=== PATIENT | male | born 1960 | race Caucasian/White ===

== ENCOUNTER 2022-11-07 10:26 | Outpatient (REF) | payer OTHER, SELFPAY ==
[2022-11-07 13:36] LABS: MANUAL DIFF FLAG NO
[2022-11-07 13:41] LABS: Basophils Percent Auto 0.5 % (0-2); Eosinophils Absolute Auto 0.3 X10*3/uL (0.0-0.4); Eosinophils Percent Auto 3.6 % (0-4); Hematocrit 50.4 % (42.0-52.0); Hemoglobin 17.1 g/dl (14.0-18.0); Imm Gran Abs Auto 0.03 X10*3/uL (0.00-0.03); Imm Gran Pct Auto 0.4 % (0.0-0.4); Lymphocytes Absolute Auto 1.8 X10*3/uL (1.2-4.9); Lymphocytes Percent Auto 21.7 % (20-40); Mean Corpuscular HGB Conc 33.9 g/dl (31.0-36.0); Mean Corpuscular Hemoglobin 31.4 pg (27.0-33.0); Mean Corpuscular Volume 92.5 fL (80.0-98.0); Mean Platelet Volume 9.3 fL (9.4-12.4); Monocytes Absolute Auto 0.7 X10*3/uL (0.1-1.2); Monocytes Percent Auto 8.3 % (2-11); Neutrophils Absolute Auto 5.3 x10*3/uL (2.0-8.3); Neutrophils Percent Auto 65.5 % (45-73); Platelet Count 195 X10*3/uL (160-400); Red Blood Count 5.45 X10*6/uL (4.60-5.80); Red Cell Distribution Width 13.3 % (11.0-16.0); White Blood Count 8.1 X10*3/uL (4.8-10.8)
[2022-11-07 13:50] LABS: Estimated Average Glucose 114 mg/dL; Hemoglobin A1c % 5.6 %
[2022-11-07 14:09] LABS: Alanine Aminotransferase 41 U/L (0-40); Albumin Level 4.3 g/dL (3.5-5.0); Alkaline Phosphatase 89 U/L (39-117); Anion Gap 17 (12-20); Aspartate Amino Transferase 30 U/L (5-37); Bilirubin Total 1.1 mg/dL (0.0-1.0); Blood Urea Nitrogen 12 mg/dL (9-16); Calcium 9.7 mg/dL (8.4-10.2); Carbon Dioxide 25 mmol/L (22-29); Chloride 106 mmol/L (96-108); Cholesterol 200 mg/dL; Estimated Glomerular Filt Rate > 60; Glucose Fasting 93 mg/dL (60-99); HDL Cholesterol 39 mg/dL; LDL Cholesterol Calculated 96 mg/dl; Potassium 4.3 mmol/L (3.3-5.1); Sodium 144 mmol/L (135-145); Total Protein 6.9 g/dL (6.5-8.0); Triglycerides 329 mg/dL
[2022-11-07 14:15] LABS: Prostate Specific Antigen Scr 2.98 ng/mL (<0.05-4.0); Thyroid Stimulating Hormone 1.25 uIU/mL (0.32-4.0)
== END 2022-11-07 10:27 | disposition home or self-care (01) ==
LOC: HO.10HDL 10:26
PROVIDERS: Visit Provider Internal Medicine
DX: Z00.01 Encounter for general adult medical examination with abnormal findings (principal); Z12.5 Encounter for screening for malignant neoplasm of prostate; E66.01 Morbid (severe) obesity due to excess calories; G47.33 Obstructive sleep apnea (adult) (pediatric); G62.9 Polyneuropathy, unspecified; I10 Essential (primary) hypertension
CPT/HCPCS: 36415; 80053; 80061; 83036; 84153; 84443; 85025

== ENCOUNTER 2023-02-28 10:57 | Outpatient (REF) | payer OTHER, SELFPAY ==
[2023-02-28 13:01] LABS: Alanine Aminotransferase 35 U/L (0-40); Albumin Level 4.4 g/dL (3.5-5.0); Alkaline Phosphatase 86 U/L (39-117); Anion Gap 14 (12-20); Aspartate Amino Transferase 27 U/L (5-37); Bilirubin Total 1.2 mg/dL (0.0-1.0); Blood Urea Nitrogen 20 mg/dL (9-16); Calcium 9.9 mg/dL (8.4-10.2); Carbon Dioxide 25 mmol/L (22-29); Chloride 108 mmol/L (96-108); Cholesterol 181 mg/dL; Estimated Glomerular Filt Rate > 60; Glucose Random 102 mg/dL (60-115); HDL Cholesterol 33 mg/dL; LDL Cholesterol Calculated 78 mg/dl; Potassium 4.5 mmol/L (3.3-5.1); Sodium 142 mmol/L (135-145); Total Protein 7.2 g/dL (6.5-8.0); Triglycerides 352 mg/dL
== END 2023-02-28 10:58 | disposition home or self-care (01) ==
LOC: HO.LAB 10:57
PROVIDERS: PCP Internal Medicine; Visit Provider Internal Medicine
DX: E66.01 Morbid (severe) obesity due to excess calories (principal); E78.2 Mixed hyperlipidemia; G47.33 Obstructive sleep apnea (adult) (pediatric); I10 Essential (primary) hypertension
CPT/HCPCS: 36415; 80053; 80061

== ENCOUNTER 2023-10-23 08:10 | Emergency (ER) | payer OTHER, MEDICARE, SELFPAY ==
--- NOTE | ~2023-10-23 | CT_ITS ---
EXAMINATION: CT ABDOMEN AND PELVIS WITHOUT CONTRAST CLINICAL INFORMATION: Left flank pain. COMPARISON: None available. TECHNIQUE: Multidetector volumetric imaging was performed from the superior aspect of the liver through the pubic symphysis. Sagittal and coronal reformatted images were obtained on the technologist's workstation. This CT examination was performed using dose optimization techniques as appropriate, variously including the following: *Automated exposure control *Adjustment of mA and/or kV according to patient size (this includes techniques or standardized protocols for targeted exams where dose is matched to indication/reason for exam; i.e. extremities or head) *Use of iterative reconstruction technique DLP: 764 mGy-cm FINDINGS: LUNG BASES: No pleural or pericardial effusion. LIVER, GALLBLADDER, AND BILIARY TREE: The noncontrast liver is normal in size and contour. No biliary ductal dilatation is present. The gallbladder is unremarkable with no evidence of radiopaque gallstones, gallbladder wall thickening, or obvious pericholecystic inflammatory changes. PANCREAS: No ductal dilatation. SPLEEN: Not enlarged. ADRENAL GLANDS: No adrenal mass. KIDNEYS AND URETERS: Edematous left kidney with moderate hydroureteronephrosis to the level of 4 mm and 7 mm calculi in the distal left ureter proximal to the ureterovesical junction. There is left perinephric, peripelvic and periureteric stranding. 4 mm nonobstructing calculus upper pole right kidney. Punctate nonobstructing calculus lower pole right kidney. No right hydronephrosis. No right perinephric stranding. BLADDER: Multiple bladder diverticula. GASTROINTESTINAL TRACT: Extensive diverticular disease of the colon. No small bowel obstruction. ABDOMINAL WALL: Small fat-containing umbilical hernia. LYMPH NODES: No bulky lymphadenopathy. VASCULAR: Normal caliber abdominal aorta. PELVIC VISCERA: Enlarged prostate gland. OSSEOUS STRUCTURES: No destructive bone lesions. CT/CT abdomen pelvis wo IV con IMPRESSION: 4 mm and 7 mm obstructing calculi within the distal left ureter proximal to the ureterovesical junction. Moderate left hydroureteronephrosis. Multiple bladder diverticula. Nonobstructing right renal calculi. No right hydronephrosis.
[2023-10-23 08:14] VITALS: BP 180/102; PULSE 54; RESP 18; TEMP 36.8; O2SAT 96; BMI 34.0
--- NOTE | 2023-10-23 08:22 | ED_ITS ---
HPI - Male Genitourinary General Chief complaint: Urogenital-Male Stated complaint: L Side Back Pain Kidney Area Time Seen by Provider: 10/23/23 08:14 Source: patient Mode of arrival: ambulatory Limitations: no limitations History of Present Illness HPI Narrative: 63-year-old male with a history of hypertension , bilateral Charcot foot who presents emergency department for evaluation of left flank and left abdominal pain since 10/18/2023 (5 days prior to evaluation) patient states that the pain started 5 days prior in the afternoon, the pain was gradual in onset but increased in intensity. Describes the pain is a sharp pain which has been intermittent located in his left flank area radiating to his lower abdomen on the left greater than the right.. He states the pain is 7/10 at its worse and is currently 7/10. The patient took ibuprofen with no relief his pain therefore he stopped taking the medication. Patient states he has had no appetite and has had very little food to eat over the last 4 days but he has been drinking fluid. This is 1st episode of this type of pain he has no history of kidney stones Patient denied fever, chills, chest pain or shortness of breath. He states he has had nausea with no vomiting. He denied diarrhea. He denied dysuria. He states that he is having difficulty urinating when he has the pain in his low improves when he is pain-free.. Related Data Previous Rx's Medication Instructions Recorded morphine 15 mg immediate release 15 mg PO Q6H PRN pain #14 tabs 10/23/23 tablet tamsulosin 0.4 mg capsule (Flomax) 0.4 mg PO DAILY #30 caps 10/23/23 Allergies Allergy/AdvReac Type Severity Reaction Status Date / Time Sulfa (Sulfonamide Allergy Unknown Verified 10/26/19 00:00 Antibiotics) sulfamethoxazole Allergy Unknown UNKNOWN Unverified 06/09/20 14:57 [From BACTRIM] trimethoprim [From BACTRIM] Allergy Unknown UNKNOWN Unverified 06/09/20 14:57 Review of Systems 2 Review of Systems: Yes all other systems are reviewed and are negative [facility] Past Medical History [facility] Narrative: Past medical history: Hypertension, bilateral Charcot foot disease. Social history: He denies tobacco, alcohol and drug use Social History Social History Smoked in Last 30 Days: No Use of substances other than those prescribed or required for medical reasons: No Advance Directives: No Advance Directives Information Provided: No Physical Exam 2 Vital Signs: Vital Signs: Last Vital Signs Temp 98.7 F 10/23/23 10:23 Pulse 54 10/23/23 10:23 Resp 16 10/23/23 10:23 BP 147/79 H 10/23/23 10:23 Pulse Ox 96 10/23/23 10:23 O2 Del Method Room Air 10/23/23 10:23 BMI result Body Mass Index 34.0 Vital signs did reveal an elevated blood pressure of 180/102-most likely caused by his pain Exam: General: Awake, alert in no distress Head: Normocephalic, atraumatic EENT: PERRL, Lids normal, sclera normal, conjunctiva normal, nose normal , ears normal, throat without erythema or exudates Neck: Supple, no adenopathy Lung: breath sounds symmetric, no wheezing, rales or rhonchi Chest: symmetric movement, nontender Heart: regular rate and rhythm, normal S1, S2 no murmurs or rubs Abdomen: soft, non-tender, nondistended, normal bowel sounds Back: no vertebral tenderness, no CVAT Extremities: no deformities, moves all extremities symmetrically Skin: no rashes, no lesion, normal color and warmth Neuro: Awake, alert, oriented, normal speech, cranial nerves intact, moves all extremities symmetrically Psych: Pleasant, cooperative Medications Administered Discontinued Medications Generic Name Dose Route Start Last Admin Trade Name Freq PRN Reason Stop Dose Admin Sodium Chloride 1,000 mls @ 999 mls/hr 10/23/23 08:36 10/23/23 09:55 Ns IV 10/23/23 09:36 Infused .Q1H1M STA Infusion Ketorolac Tromethamine 15 mg 10/23/23 08:36 10/23/23 08:45 Ketorolac Tromethamine 15 Mg/Ml Vial IVPUSH 10/23/23 08:37 15 mg ONCE STA Administration Ondansetron HCl 4 mg 10/23/23 08:36 10/23/23 08:45 Ondansetron Hcl 4 Mg/2 Ml Vial IVPUSH 10/23/23 08:37 4 mg ONCE ONE Administration Medical Decision Making Medical Decision Making MDM Narrative: 63-year-old male with a history of hypertension and Charcot foot disease who presents emergency department for evaluation of 5 days of left flank pain with pain radiating to his abdomen with no dysuria or hematuria noted. He also denied fever but did have chills. He also had associated nausea. Vital signs did reveal an elevated blood pressure-she does have hypertension and is having 7/10 pain. Patient had no CVA tenderness or abdominal tenderness. Differential diagnosis: Includes but not limited to renal colic, ureteral colic, ureteral stone, urinary tract infection, anemia, electrolyte abnormalities Following evaluation was ordered: CBC, CMP, PTT, urinalysis, CT scan of the abdomen pelvis without IV contrast Patient was treated with the following: IV insertion, normal saline x1 L, Toradol 15 mg IV and Zofran 4 mg IV 12:42 My interpretation patient's laboratory evaluation is as follows: CBC was normal. BUN and creatinine were normal. Bilirubin elevated 1.4. Urinalysis pending collection Patient is pain-free after the above treatment. Patient's CT scan of the abdomen pelvis did reveal left-sided moderate hydroureteronephrosis with 2 ureteral stones measuring 4 mm and 7 mm. I did discuss the patient's presentation with our covering urologist, Dr. Lopez. He recommended starting Flomax and prednisone 40 mg once a day for 5 days and he will follow-up with the patient Patient was also advised to take Tylenol and for pain not relieved by prednisone and Tylenol he was prescribed morphine. Admission/Observation Consideration of admission/observation: Escalation of care including admission/observation considered Consult Healthcare Provider Management of the patient was discussed with: [employer] (Urologist, Dr. Lopez) Lab Data MDM Lab Attestation statement: I reviewed the patient's lab results. 10/23/23 08:45 10/23/23 08:45 Labs: Lab Results 10/23/23 Range/Units 08:45 WBC 7.6 (4.8-10.8) X10*3/uL RBC 4.76 (4.60-5.80) X10*6/uL Hgb 14.8 (14.0-18.0) g/dl Hct 43.3 (42.0-52.0) % MCV 91.0 (80.0-98.0) fL MCH 31.1 (27.0-33.0) pg MCHC 34.2 (31.0-36.0) g/dl RDW 12.8 (11.0-16.0) % Plt Count 192 (160-400) X10*3/uL MPV 8.8 L (9.4-12.4) fL Immature Gran % (Auto) 0.5 H (0.0-0.4) % Neut % (Auto) 73.6 H (45-73) % Lymph % (Auto) 12.8 L (20-40) % [place] % (Auto) 10.3 (2-11) % Eos % (Auto) 2.4 (0-4) % Baso % (Auto) 0.4 (0-2) % Lymph # (Auto) 1.0 L (1.2-4.9) X10*3/uL [place] # (Auto) 0.8 (0.1-1.2) X10*3/uL Eos # (Auto) 0.2 (0.0-0.4) X10*3/uL Baso # (Auto) 0.0 (0.0-0.2) X10*3/uL Abs Immat Gran (auto) 0.04 H (0.00-0.03) X10*3/uL Absolute Neuts (auto) 5.6 (2.0-8.3) x10*3/uL Absolute Nucleated RBC 0.000 (0.0-0.012) X10*3/uL Nucleated RBC % (auto) 0.0 (0.0-0.2) /100WBC APTT 31.5 (26.0-36.8) SEC Sodium 136 (135-145) mmol/L Potassium 4.0 (3.3-5.1) mmol/L Chloride 101 (96-108) mmol/L Carbon Dioxide 26 (22-29) mmol/L Anion Gap 13 (12-20) BUN 17 H (9-16) mg/dL Creatinine 1.15 (0.5-1.4) mg/dL Estim Creat Clear Calc 83.1 Estimated GFR > 60 Random Glucose 107 (60-115) mg/dL Calcium 9.7 (8.4-10.2) mg/dL Total Bilirubin 1.4 H (0.0-1.0) mg/dL AST 16 (5-37) U/L ALT 12 (0-40) U/L Alkaline Phosphatase 70 (39-117) U/L Total Protein 7.5 (6.5-8.0) g/dL Albumin 4.2 (3.5-5.0) g/dL Radiology Impression Discussion of test interpretation with radiology: I have reviewed the radiologist's reading. Radiologist Impression: EXAMINATION: CT ABDOMEN AND PELVIS WITHOUT CONTRAST CLINICAL INFORMATION: Left flank pain. COMPARISON: None available. FINDINGS: .... KIDNEYS AND URETERS: Edematous left kidney with moderate hydroureteronephrosis to the level of 4 mm and 7 mm calculi in the distal left ureter proximal to the ureterovesical junction. There is left perinephric, peripelvic and periureteric stranding. 4 mm nonobstructing calculus upper pole right kidney. Punctate nonobstructing calculus lower pole right kidney. No right hydronephrosis. No right perinephric stranding. BLADDER: Multiple bladder diverticula. GASTROINTESTINAL TRACT: Extensive diverticular disease of the colon. No small bowel obstruction. ABDOMINAL WALL: Small fat-containing umbilical hernia. PELVIC VISCERA: Enlarged prostate gland. CT abdomen pelvis wo IV con IMPRESSION: 4 mm and 7 mm obstructing calculi within the distal left ureter proximal to the ureterovesical junction. Moderate left hydroureteronephrosis. Multiple bladder diverticula. Nonobstructing right renal calculi. No right hydronephrosis. Dictated By: Evangelista Maurice MD Prescription Management I considered prescription management with: Pain Medication Chronic Conditions Patient?s care impacted by: Hypertension Discharge Plan Discharge Clinical Impression: Ureteral colic, Calculus of distal left ureter Patient Disposition: Home, Self-Care Instructions: How to Strain Your Urine (ED), Ureteral Stones (ED) Additional Instructions: The CT scan showed that you have 2 stones in your left ureter 1 measuring 4 mm and 1 measuring 7 mm. In general, a 7 mm stone can usually the past but sometimes it can get stuck where the ureter attaches to the bladder (UVJ junction). You do have a 4 mm stone in your right kidney which is not giving her problem at this time. You also have small pockets in your bladder called diverticuli which are not causing any problems. I did discuss her presentation with our urologist, Dr. Lopez he is recommending the following: Flomax (tamsulosin) 0.4 mg, once a day until you pass the stone. Prednisone 20 mg pills, 2 pills (40 mg) once a day for 5 days. While you ?are taking prednisone, do not take any NSAIDs (Motrin, Advil, ibuprofen, Aleve, naproxen). Take Tylenol (acetaminophen) 2 pills every 6 hours as needed for pain. For pain not relieved by redness or Tylenol take morphine 15 mg pills, 1 pill every 4 hours as needed for pain. This medication will make you sleepy, do not drive or work while taking this medication. Morphine is a narcotic medication and can be addicting. If you are concerned about addiction you can ask the pharmacist for less pills or do not get this prescription filled. Strain your urine and if you catch a stone bring it to Dr. Lopez. Call Dr. Lopez's office today to arrange a follow-up appointment Follow-up with your doctor in 2 days. Please return to the emergency department if your symptoms get worse or if you develop any symptoms that are concerning to you. CT abdomen pelvis wo IV con IMPRESSION: 4 mm and 7 mm obstructing calculi within the distal left ureter proximal to the ureterovesical junction. Moderate left hydroureteronephrosis. Multiple bladder diverticula. Nonobstructing right renal calculi. No right hydronephrosis. Dictated By: Evangelista Maurice MD Prescriptions: New tamsulosin [Flomax] 0.4 mg capsule 0.4 mg PO DAILY Qty: 30 0RF morphine 15 mg tablet 15 mg PO Q6H PRN (Reason: pain) Qty: 14 0RF Rx Instructions: Patient may request partial fill; Partial Fill upon patient request.
[2023-10-23] MEDS: ondansetron HCL 4 MG/2 ML VIAL IVPUSH (08:45)
[2023-10-23] MEDS: 0.9 % Sodium Chloride 1,000 ML 999 ML IV (08:45)
[2023-10-23] MEDS: Ketorolac Tromethamine 15 MG/ML VIAL IVPUSH (08:45)
[2023-10-23 08:48] LABS: MANUAL DIFF FLAG NO
[2023-10-23 08:50] LABS: Basophils Percent Auto 0.4 % (0-2); Eosinophils Absolute Auto 0.2 X10*3/uL (0.0-0.4); Eosinophils Percent Auto 2.4 % (0-4); Hematocrit 43.3 % (42.0-52.0); Hemoglobin 14.8 g/dl (14.0-18.0); Imm Gran Abs Auto 0.04 X10*3/uL (0.00-0.03); Imm Gran Pct Auto 0.5 % (0.0-0.4); Lymphocytes Percent Auto 12.8 % (20-40); Mean Corpuscular HGB Conc 34.2 g/dl (31.0-36.0); Mean Corpuscular Hemoglobin 31.1 pg (27.0-33.0); Mean Platelet Volume 8.8 fL (9.4-12.4); Monocytes Absolute Auto 0.8 X10*3/uL (0.1-1.2); Monocytes Percent Auto 10.3 % (2-11); Neutrophils Absolute Auto 5.6 x10*3/uL (2.0-8.3); Neutrophils Percent Auto 73.6 % (45-73); Platelet Count 192 X10*3/uL (160-400); Red Blood Count 4.76 X10*6/uL (4.60-5.80); Red Cell Distribution Width 12.8 % (11.0-16.0); White Blood Count 7.6 X10*3/uL (4.8-10.8)
[2023-10-23 09:00] LABS: Partial Thromboplastin Time 31.5 SEC (26.0-36.8)
[2023-10-23 09:03] LABS: Alanine Aminotransferase 12 U/L (0-40); Albumin Level 4.2 g/dL (3.5-5.0); Alkaline Phosphatase 70 U/L (39-117); Anion Gap 13 (12-20); Aspartate Amino Transferase 16 U/L (5-37); Bilirubin Total 1.4 mg/dL (0.0-1.0); Blood Urea Nitrogen 17 mg/dL (9-16); Calcium 9.7 mg/dL (8.4-10.2); Carbon Dioxide 26 mmol/L (22-29); Chloride 101 mmol/L (96-108); Creatinine Clr Calc Pharmacy 83.1; Estimated Glomerular Filt Rate > 60; Glucose Random 107 mg/dL (60-115); Sodium 136 mmol/L (135-145); Total Protein 7.5 g/dL (6.5-8.0)
--- OUTSIDE RECORDS SUMMARY | 2023-10-23 09:09 | XMS_ITS | Continuity of Care Document ---
Author Name Unknown Organization [facility] Address Unknown Care Team Providers Care Drafter Commercial Name Role Phone Anderadán Chaparro DO [facility] Emile gonzalez Encounter [facility] [place] Date(s): 06/21/21 - 07/21/21 [facility] Attending Physician: José Mariscal Admitting Physician: José Mariscal Referring Physician: José Mariscal Allergies, Adverse Reactions, Alerts Substance Reaction Severity Status Bactrim 1 Persistent Mild Active 1small rash Medications aspirin 81 mg oral tablet 1 tablet = 81 mg, By Mouth, Daily, 0 Refills, Maintenance, 07/29/19 10:26:33 EST Start Date: 07/29/19 Status: Ordered atorvastatin 20 mg oral tablet 1 tablet = 20 mg, By Mouth, Daily, 0 Refills, Maintenance, 07/29/19 10:19:30 EST Start Date: 07/29/19 Status: Ordered CoQ10 = 300 mg, By Mouth, Daily, 0 Refills, Maintenance, 07/29/19 10:26:42 EST Start Date: 07/29/19 Status: Ordered Fish Oil By Mouth, 0 Refills, Maintenance, 07/29/19 10:26:57 EST Start Date: 07/29/19 Status: Ordered Multi Vitamin+ 0 Refills, Maintenance, 07/29/19 10:26:18 EST Start Date: 07/29/19 Status: Ordered Social History Social History Type Response Smoking Status Never (less than 100 in lifetime) entered on: 07/29/19 Sex
--- OUTSIDE RECORDS SUMMARY | 2023-10-23 09:09 | XMS_ITS | Continuity of Care Document ---
Author Name Unknown Organization [facility] Address Unknown Care Team Providers Care Major Donor Coordinator Name Role Phone Chato GRADY, Kaylee Denny Primary Care Physician [phone] Encounter [facility] [place] Date(s): 10/02/21 - 11/01/21 [facility] Attending Physician: José Mariscal Admitting Physician: [...]
--- OUTSIDE RECORDS SUMMARY | 2023-10-23 09:09 | XMS_ITS | Continuity of Care Document ---
Author Name Unknown Organization [facility] Address [address] [place] [id number] Care Team Providers Care Entry Clerk Name Role Phone Chato GRADY, Kaylee Denny Primary Care Physician [phone] Encounter [facility] Date(s): 09/08/21 - 10/08/[address] [id number]- Attending Physician: José Mariscal Admitting Physician: AdmtrJosé Referring Physician: Admtr, [id number] Allergies, Adverse Reactions, Alerts Substance Reaction Severity [...]
--- OUTSIDE RECORDS SUMMARY | 2023-10-23 09:09 | XMS_ITS | Patient Health Record ---
Author Name Unknown Organization [facility] Address [address] [facility] [address] [place] [address] Care Team Providers Care Information Resource Consultant Name Role Phone Jennifer Walter Primary Care Provider BEVERLY Rios Unavailable [phone] ALLERGIES Allergen (clinical drug ingredient) Drug/Non Drug Allergy documented on EMR Reaction Allergy Type Onset Date Status sulfamethoxazole / trimethoprim Bactrim Unknown Drug Allergy Active RESULTS Component Value Reference Range Notes CULTURE, DEEP WOUND Reviewed date:04/01/2023 07:56:57 AM Interpretation: Performing Lab:Testing performed or reported by [facility], a Service of [facility], [address] [place] [address] Hollis Lagunas MD, Head Of Mobile [facility]# [id number] Notes/Report: SPECIMEN DESCRIPTION ULCER E SWAB SPECIAL REQUESTS NONE GRAM STAIN 4+ GRAM NEGATIVE RODS GRAM STAIN 4+ GRAM POSITIVE COCCI GRAM STAIN 1+ GRAM POSITIVE RODS GRAM STAIN NO CELLS SEEN CULTURE 4+ PSEUDOMONAS AERUG INOSA This isolate was identified using Maldi-TOF CULTURE system These AST res ults were performed on the [employer] ID and AST CULTURE system CULTURE 4+ STAPHYLOCOCCUS AU REUS. This isolate was identified using Maldi-TOF CULTURE system These AST res ults were performed on the [employer] 2 ID and AST CULTURE system REPORT STATUS FINAL 04/01/2023 ORGANISM 4+ PSEUDOMONAS AERUG INOSA This isolate was identified using Maldi-TOF system These AST results were performed on the [employer] ID and AST system METHOD MIN. INHIB. CONC. (MCG/ML) SUSCEPTIBILITY CEFEPIME SUSCEPTIBLE CEFTAZIDIME SUSCEPTIBLE CIPROFLOXACIN SUSCEPTIBLE GENTAMICIN SUSCEPTIBLE LEVOFLOXACIN SUSCEPTIBLE MEROPENEM SUSCEPTIBLE PIPERACILLIN/TAZOBAC ENRIQUEZ SUSCEPTIBLE ORGANISM 4+ STAPHYLOCOCCUS AU REUS. This isolate was identified using Maldi-TOF system These AST results were performed on the [employer] 2 ID and AST system METHOD MIN. INHIB. CONC. (MCG/ML) SUSCEPTIBILITY CIPROFLOXACIN SUSCEPTIBLE CLINDAMYCIN SUSCEPTIBLE ERYTHROMYCIN SUSCEPTIBLE INDUCIBLE CLINDAMYCI N NEGATIVE LEVOFLOXACIN SUSCEPTIBLE OXACILLIN SUSCEPTIBLE RIFAMPIN SUSCEPTIBLE RIFAMPIN SHOULD NOT BE USED ALONE FOR ANTIMICROBIAL THERAPY. TETRACYCLINE SUSCEPTIBLE TRIMETH/SULFAMETHOX SUSCEPTIBLE VANCOMYCIN SUSCEPTIBLE CULTURE, DEEP WOUND Reviewed date:04/26/2023 08:38:37 AM Interpretation: Performing Lab:Testing performed or reported by [facility], a Service of [facility], [address] [place] [address] [place] [address] Hollis Lagunas MD, Head Of [employer] [facility]# [id number] Notes/Report: SPECIMEN DESCRIPTION ULCER R FOOT SPECIAL REQUESTS NONE GRAM STAIN NO CELLS OR ORGANISM S SEEN CULTURE 1+ PSEUDOMONAS AERUG INOSA This isolate was identified using Maldi-TOF CULTURE system These AST res ults were performed on the [employer] ID and AST CULTURE system CULTURE No other significant microorganisms isolated. CULTURE Please consult the laboratory [phone]) within 7 days if more CULTURE definitive studies a re clinically indicated. REPORT STATUS FINAL 04/26/2023 ORGANISM 1+ PSEUDOMONAS AERUG INOSA This isolate was identified using Maldi-TOF system These AST results were performed on the [employer] ID and AST system METHOD MIN. INHIB. CONC. (MCG/ML) SUSCEPTIBILITY CEFEPIME SUSCEPTIBLE CEFTAZIDIME SUSCEPTIBLE CIPROFLOXACIN SUSCEPTIBLE GENTAMICIN SUSCEPTIBLE LEVOFLOXACIN SUSCEPTIBLE MEROPENEM SUSCEPTIBLE PIPERACILLIN/TAZOBAC ENRIQUEZ SUSCEPTIBLE REASON FOR REFERRAL No Information MEDICATIONS Medication SIG (Take, Route, Frequency, Duration) Notes Start Date End Date Status levoFLOXacin 500 MG 1 tablet Orally twic e daily for 10 day(s) 04/01/2023 Not-Taking Multivitamin - 1 tablet Orally Once a day Active Vitamin D3 Active Vitamin C 1000 MG 1 tablet Orally Once a day Active Zinc 50 MG 1 tablet Orally Once a day Active Garlic 1000 MG as directed Orally Active Fish Oil 1000 MG 1 capsule Orally Onc e a day Active Losartan Potassium-HCTZ 100-12.5 MG 1 tablet Orally Once a day Active Lipitor 20 MG 1 tablet Orally Once a day Not-Taking SOCIAL HISTORY Sex Assigned At : Social History Observation Description Sex Assigned At Unknown PROBLEMS Problem Type ICD Code Onset Dates Problem Status W/U Status Risk SNOMED Code Notes Problem Hallux rigidus of right foot (M20.21) Active confirmed 744389053 Problem Hammer toe of left foot (M20.42) Active confirmed 186869766 Problem Hammer toe of right foot (M20.41) Active confirmed 061657907 Problem Skin ulcer of toe of left foot, limited to breakdown of skin (L97.521) Active confirmed 488574563 Problem Idiopathic peripheral neuropathy (G60.9) Active confirmed 69178795 Problem Status post left foot surgery (Z98.890) Active confirmed Postprocedural states (733548169) Problem Charcot's arthropathy (M14.60) Active confirmed 256720155 Problem Gait instability (R26.81) Active confirmed 05088572 Problem Skin ulcer of toe of right foot with fat layer exposed (L97.512) Active confirmed 96148421182460573 Problem Peripheral polyneuropathy (G62.9) Active confirmed 54848196 Problem Hammertoe of left foot (M20.42) Active confirmed 170871088 Problem Ulcer of right second toe with fat layer exposed (L97.512) Active confirmed 603223670 Problem Skin ulcer of second toe of right foot with necrosis of muscle (L97.513) Active confirmed VITAL SIGNS Heart Rate 65 /min 06/25/2023 Temperature 96.5 degrees Fahrenheit 06/25/2023 Respiratory Rate 20 /min 06/25/2023 Blood pressure diastolic 70 mm Hg 03/29/2023 Height 5ft 11in in 06/25/2023 Blood pressure systolic 132 mm Hg 03/29/2023 Weight 253.6 lbs 06/25/2023 BMI 35.37 kg/m2 06/25/2023 Encounters Encounter Location Date Provider Diagnosis [facility] [address] 06/07/2023 BEVERLY MOELLER [facility] [address] 10/09/2023 BEVERLY MOELLER [facility] [address] 12/27/2022 BEVERLY MOELLER Idiopathic peripheral neuropathy G60.9 ; Ulcer of right second toe with fat layer exposed L97.512 ; Charcot's arthropathy M14.60 ; Gait instability R26.81 and Hammer toe of left foot M20.42 [facility] [address] 03/29/2023 BEVERLY MOELLER Idiopathic peripheral neuropathy G60.9 ; Ulcer of right second toe with fat layer exposed L97.512 ; Charcot's arthropathy M14.60 ; Gait instability R26.81 and Hammer toe of left foot M20.42 [facility] [address] 04/23/2023 BEVERLY MOELLER Skin ulcer of second toe of right foot with necrosis of muscle L97.513 ; Hammer toe of right foot M20.41 and Idiopathic peripheral neuropathy G60.9 [facility] [address] 05/06/2023 BEVERLY MOELLER Hammer toe of right foot M20.41 and Skin ulcer of toe of right foot with fat layer exposed L97.512 [facility] [address] 05/24/2023 BEVERLY MOELLER Hammer toe of right foot M20.41 ; Healed ulcer of right foot Z87.2 ; Hammertoe of left foot M20.42 ; Pre-ulcerative calluses L84 and Peripheral polyneuropathy G62.9 [facility] [address] 06/10/2023 BEVERLY MOELLER Hammertoe of left foot M20.42 ; Pre-ulcerative calluses L84 and Peripheral polyneuropathy G62.9 [facility] [address] 06/25/2023 BEVERLY MOELLER Hammertoe of left foot M20.42 ; Pre-ulcerative calluses L84 and Peripheral polyneuropathy G62.9 [facility] [address] 04/01/2023 BEVERLY MOELLER [facility] [address] 04/03/2023 BEVERLY MOELLER [facility] [address] 04/03/2023 BEVERLY MOELLER ASSESSMENTS Encounter Date Diagnosis Assessment Notes Treatment Notes Treatment Clinical Notes 12/27/2022 Idiopathic peripheral neuropathy (ICD-10 - G60.9) I had a long discussion with the patient regarding his peripheral neuropathy. We discussed at this time, there is no underlying cause for the nerve damage. He is noticing worsening symptoms, having issues with instability, and notes increased numbness radiating up the legs. We discussed that there is no cure for the neuropathy and that he could see worsening in regard to his weakness and instability. We discussed that his EMG showed issues with the nerves from his knees down. His lab work came back and was normal. We discussed at this time, his neuropathy is considered idiopathic. We discussed that due to the nature of his nerupopathy, it is hard to tell if this will progress. I believe this this why the right foot pain has increased. 03/29/2023 Idiopathic peripheral neuropathy (ICD-10 - G60.9) I had a long discussion with the patient regarding his peripheral neuropathy. We discussed at this time, there is no underlying cause for the nerve damage. He is noticing worsening symptoms, having issues with instability, and notes increased numbness radiating up the legs. We discussed that there is no cure for the neuropathy and that he could see worsening in regard to his weakness and instability. We discussed that his EMG showed issues with the nerves from his knees down. His lab work came back and was normal. We discussed at this time, his neuropathy is considered idiopathic. We discussed that due to the nature of his nerupopathy, it is hard to tell if this will progress. I believe this this why the right foot pain has increased. 04/23/2023 Skin ulcer of second toe of right foot with necrosis of muscle (ICD-10 - L97.513) This is an outpatient visit for evaluation and management of a new problem with an established patient, which required appropriate review of pertinent medical history, review of any previous imaging, review of all previous records, and examination and complex decision-making. Time was 45 minutes spent in review of all these facets including face to face discussion with the patient regarding my findings and in discussion of a current and future treatment plan. We discussed that he has a new wound under the right 2nd toe. We discussed the wound probes to the tendon. We discussed that the tendon needs to be debrided since it is exposed. We also discussed that the tendon is increasing the deformity of the hammer toe. We had discussed in the past, a flexor tenotomy. I recommend at this time, that I debride the tendon and release the tendon to help decrease the deformity and allow the wound to heal. All risks of the procedure discussed with the patient. I will loosely close the area to allow for drainage and take a wound culture, treating with antibiotics as necessary. He is in agreement with this plan. Consent was signed for debridement of the right 2nd toe wound and tendon with an open flexor tenotomy. The patient tolerated the procedure well. Post surgical instructions dispensed to the patient. He can remove the bandage tomorrow and change once daily. Dressings dispensed to the patient today. I would like to see him back in 10-14 days for a suture removal. Patient told to call the office with any increase pain, redness, swelling, drainage, or other signs of infection. He is in agreement with this plan. 05/06/2023 Hammer toe of right foot (ICD-10 - M20.41) This patient returns to my office s/p 13 days from an open flexor tenotomy due to an ulceration of the toe. The tip of the toe remains closed. There is slight dehiscence at the incision site. There is no malodor or drainage of the toe. We discussed the wound is healing, but is not closed. I aseptically removed the suture with a #15 blade and forceps, pt tolerated well. I recommended he continues daily dressing changes until the plantar area is healed. I recommended he uses dry sterile dressing only. He has restrictions for exercise related activity. I would like to see him back in 2 weeks. We discussed once healed, he can stop bandaging the toe. He ordered new shoes that are a larger size to accommodate the toes. 05/06/2023 Skin ulcer of toe of right foot with fat layer exposed (ICD-10 - L97.512) 05/24/2023 Hammer toe of right foot (ICD-10 - M20.41) This patient returns to my office s/p 4 weeks from an open flexor tenotomy due to an ulceration of the toe. The ulcerations have healed. There is no malodor or drainage of the toe. He can stop bandaging the right toe. He ordered new shoes that are a larger size to accommodate the toes. 04/23/2023 Hammer toe of right foot (ICD-10 - M20.41) 05/24/2023 Healed ulcer of right foot (ICD-10 - Z87.2) 06/10/2023 Hammertoe of left foot (ICD-10 - M20.42) This patient returns to my office s/p 15 days from an open flexor tenotomy due hammer toe. We discussed his non compliance caused the toe to start to angle. I reviewed with the patient that he may need another procedure in the future to correct the toe position. The tip of the toe remains closed. There is slight dehiscence at the incision site. There is no malodor or drainage of the toe. We discussed the wound is healing, but is not closed. I aseptically removed the suture with a #15 blade and forceps, pt tolerated well. I recommended he continues daily dressing changes until the plantar area is healed. I recommended he uses dry sterile dressing only. He has restrictions for exercise related activity. I would like to see him back in 2 weeks. We discussed once healed, he can stop bandaging the toe. He ordered new shoes that are a larger size to accommodate the toes. 06/25/2023 Hammertoe of left foot (ICD-10 - M20.42) This patient returns to my office s/p 4 weeks from an open flexor tenotomy due hammer toe. We discussed his non compliance caused the toe to start to angle. I reviewed with the patient that he may need another procedure in the future to correct the toe position. The tip of the toe remains closed. The incision site is now closed. He has restrictions for exercise related activity for the next 2 weeks. I recommended ice and elevation at the end of the day. He ordered new shoes that are a larger size to accommodate the toes. 06/10/2023 Pre-ulcerative calluses (ICD-10 - L84) 06/25/2023 Pre-ulcerative calluses (ICD-10 - L84) 05/24/2023 Hammertoe of left foot (ICD-10 - M20.42) This is an outpatient visit for evaluation and management of a new problem with an established patient, which required appropriate review of pertinent medical history, review of any previous imaging, review of all previous records, and examination and complex decision-making. Time was 45 minutes spent in review of all these facets including face to face discussion with the patient regarding my findings and in discussion of a current and future treatment plan. We discussed that he a pre-ulcerative lesion on the dorsum of the left 2nd toe. We also discussed that the tendon is increasing the deformity of the hammer toe. We had discussed in the past, a flexor tenotomy. I recommend at this time, that I release the tendon to help decrease the deformity and allow the wound to heal. All risks of the procedure discussed with the patient. He is in agreement with this plan. Consent was signed for an open flexor tenotomy of the left 2nd toe. The patient tolerated the procedure well. Post surgical instructions dispensed to the patient. He can remove the bandage tomorrow and change once daily. Dressings dispensed to the patient today. I would like to see him back in 10-14 days for a suture removal. Patient told to call the office with any increase pain, redness, swelling, drainage, or other signs of infection. He is in agreement with this plan. 03/29/2023 Ulcer of right second toe with fat layer exposed (ICD-10 - L97.512) We discussed the importance of proper offloading for the wound to heal. I explained to the patient that until the right 2nd toe wound was healed, he should be keeping the wound covered daily. He should also not be getting his feet wet until the wound is healed. Continue to elevate the feet to help with the swelling. I performed a full thickness debridement of the plantar wound of the right 2nd toe with a #15 blade; all non-viable tissue was excised, and the wound was debrided to a clean bleeding base. The patient tolerated the procedure well. The new wound measurements for the right foot were 0.2 cm x 0.4 cm. Wound culture taken. The area does not probe to bone, but I warned the patient that if it continues to deteriorate this could continue to the bone. Patient was instructed not to pick at the foot and only apply antibiotic ointment to the wound with a dry dressing only. The patient is to change the bandage daily. Pt to call or go to ER if the foot becomes painful red, they see pus, or the wound worsens. 12/27/2022 Ulcer of right second toe with fat layer exposed (ICD-10 - L97.512) We discussed the importance of proper offloading for the wound to heal. I explained to the patient that until the right 2nd toe wound was healed, he should be keeping the wound covered daily. He should also not be getting his feet wet until the wound is healed. Continue to elevate the feet to help with the swelling. I performed a full thickness debridement of the plantar wound of the right 2nd toe with a #15 blade; all non-viable tissue was excised, and the wound was debrided to a clean bleeding base. The patient tolerated the procedure well. The new wound measurements for the right foot were 0.1 cm x 0.1 cm. The area does not probe to bone, but I warned the patient that if it continues to deteriorate this could continue to the bone. Patient was instructed not to pick at the foot and only apply antibiotic ointment to the wound with a dry dressing only. The patient is to change the bandage daily. Pt to call or go to ER if the foot becomes painful red, they see pus, or the wound worsens. 12/27/2022 Charcot's arthropathy (ICD-10 - M14.60) We discussed his Charcot is stable and still in the consolidated phase. I explained that he will always be at risk for an acute attack, and if that was to happen, he would need to be immobilized on that side for 3-6 months. We discussed since he is not a diabetic, the Charcot can be unpredictable. We discussed increased stress to the feet could make him a higher risk for an acute attack, but it does not guarantee. He has no signs of an acute episode this visit. Patient voiced understanding. I will perform another set of x-rays at his next visit. 03/29/2023 Charcot's arthropathy (ICD-10 - M14.60) We discussed his Charcot is stable and still in the consolidated phase. I explained that he will always be at risk for an acute attack, and if that was to happen, he would need to be immobilized on that side for 3-6 months. We discussed since he is not a diabetic, the Charcot can be unpredictable. We discussed increased stress to the feet could make him a higher risk for an acute attack, but it does not guarantee. He has no signs of an acute episode this visit. Patient voiced understanding. I will perform another set of x-rays at his next visit. 06/10/2023 Peripheral polyneuropathy (ICD-10 - G62.9) 06/25/2023 Peripheral polyneuropathy (ICD-10 - G62.9) 05/24/2023 Pre-ulcerative calluses (ICD-10 - L84) 04/23/2023 Idiopathic peripheral neuropathy (ICD-10 - G60.9) I had a long discussion with the patient regarding his peripheral neuropathy. We discussed at this time, there is no underlying cause for the nerve damage. He is noticing worsening symptoms, having issues with instability, and notes increased numbness radiating up the legs. We discussed that there is no cure for the neuropathy and that he could see worsening in regard to his weakness and instability. We discussed that his EMG showed issues with the nerves from his knees down. His lab work came back and was normal. We discussed at this time, his neuropathy is considered idiopathic. We discussed that due to the nature of his nerupopathy, it is hard to tell if this will progress. I believe this this why the right foot pain has increased. 05/24/2023 Peripheral polyneuropathy (ICD-10 - G62.9) 03/29/2023 Gait instability (ICD-10 - R26.81) We discussed his muscle strength remains unchanged, but he does have increased symptoms of neuropathy on examination today. Depending on the neurologist opinion, he may need AFOs to help with stability, at this time the patient would like to wait. 12/27/2022 Gait instability (ICD-10 - R26.81) We discussed his muscle strength remains unchanged, but he does have increased symptoms of neuropathy on examination today. Depending on the neurologist opinion, he may need AFOs to help with stability, at this time the patient would like to wait. 12/27/2022 Hammer toe of left foot (ICD-10 - M20.42) We discussed the left 2nd hammer toe is rigid. We discussed this causes rubbing in his shoes. I explained that using a toe protector like a sleeve or a band-aid can help prevent the rubbing. We discussed ultimately he may need a procedure to help straighten the toe to prevent a wound and getting an infection. We discussed performing a minimally invasive arthroplasty of the left 2nd toe. He will consider this option. He does not wish to proceed with surgery at this time. 03/29/2023 Hammer toe of left foot (ICD-10 - M20.42) We discussed the left 2nd hammer toe is rigid. We discussed this causes rubbing in his shoes. I explained that using a toe protector like a sleeve or a band-aid can help prevent the rubbing. We discussed ultimately he may need a procedure to help straighten the toe to prevent a wound and getting an infection. We discussed performing a minimally invasive arthroplasty of the left 2nd toe. He will consider this option. He does not wish to proceed with surgery at this time. RX given today for new custom orthotics. It has been 3 years since his last pair. 05/24/2023 Other 06/10/2023 Other PLAN OF TREATMENT Pending Test Test Name Order Date X ray : Foot, left 3v 04/07/2020 X ray : Foot, left 3v 03/17/2021 X ray : Foot, left 3v 12/18/2021 X ray : Foot, left 3v 03/20/2022 X ray : Foot, left 3v 09/20/2022 X ray : Foot, left 3v 12/27/2022 X ray : Foot, left 3v 03/29/2023 X ray : Foot, right 3v 03/29/2023 X ray : Foot, right 3v 12/27/2022 X ray : Foot, right 3v 09/20/2022 X ray : Foot, right 3v 03/20/2022 X ray : Foot, right 3v 12/18/2021 X ray : Foot, right 3v 10/03/2020 X ray : Foot, right 3v 10/24/2020 X ray : Foot, right 3v 11/21/2020 X ray : Foot, right 3v 03/17/2021 Insurance Providers Payer Name Payer Address Payer Phone Subscriber Number Group Number Insured Name Patient Relationship to Insured Coverage Start Date Coverage End Date [facility] [id number] [address] [facility] [id number] [facility] [place] [address] [id number] Narinder Macias Self - patient is the insured MEDICAL (GENERAL) HISTORY Medical History History ICD Code varicose veins with edema hypertriglyceridemia obesity GERD idiopathic peripheral neuropathy charcot arthritis sleep apnea eczema + COVID not COVID vaccinated Surgical History Surgery Date(Month/Year) partial amputation of the left hallux colonoscopy Hospitalization History Reason Date(Month/Year) infection left foot partial amputation of the left hallux
[2023-10-23 10:23] VITALS: BP 147/79; PULSE 54; RESP 16; TEMP 37.1; O2SAT 96
[2023-10-23] MEDS: Tamsulosin HCL 0.4 MG CAPSULE PO (13:41)
[2023-10-23] MEDS: predniSONE 20 MG TABLET 40 MG PO (13:41)
[2023-10-23 14:02] LABS: Appearance Urine Clear; Color Urine Yellow; Glucose Urine UA Negative (Negative); Leukocyte Esterase Urine Moderate (2+) (Negative); Nitrite Urine Negative (Negative); PH 5.5 (5.0-9.0); Specific Gravity - Urine 1.015 (1.005-1.025); UMIC TRIGGER UACC YES; Urine Blood Moderate (2+) (Negative); Urine Ketones Negative (Negative); Urine Protein 30 (1+) mg/dL (Neg-Trace)
[2023-10-23 14:04] LABS: Bacteria Urine None Seen (None Seen); Hyaline Casts Urine 0-2 /LPF (0-2); UACC Culture Trigger YES; WBC Urine 21-50 /HPF (0-5)
== END 2023-10-23 13:59 | disposition home or self-care (01) ==
PROVIDERS: Emergency Provider Emergency Medicine Emergency Medical Services; PCP Internal Medicine
DX: N13.2 Hydronephrosis with renal and ureteral calculous obstruction (principal); I10 Essential (primary) hypertension; G60.0 Hereditary motor and sensory neuropathy
CPT/HCPCS: 36415; 74176; 80053; 81001; 81003; 85025; 85730; 87086; 96361; 96374; 96375; 99284; J1885; J2405

== ENCOUNTER 2023-10-28 14:09 | Day surgery (SDC) | payer OTHER, MEDICARE, SELFPAY ==
--- NOTE | ~2023-10-28 | FL_ITS ---
EXAMINATION: FL FLUOROSCOPY WITH IMAGES INFORMATION: Cystoscopy, ureteroscopy, retrograde, laser left. COMPARISON: CT abdomen and pelvis of 10/23/2023. TECHNIQUE: Fluoroscopy Supervised By: Dr. Isak Lopez. Fluoroscopy Time: 7.3 seconds. Cumulative Dose: 3.24 mGy. DAP: no DAP Images: 4. FINDINGS: Fluoroscopic imaging provided for procedure performed by Dr. Isak Lopez. Stent projects over left kidney proximally with visualization of mid portion of stent, and distal portion is not included images provided. Please refer to operative report for more detailed evaluation. FL/FL guidance in OR IMPRESSION: Fluoroscopy provided for procedure. Please refer to operative report for more detailed evaluation.
--- OUTSIDE RECORDS SUMMARY | 2023-10-28 14:13 | XMS_ITS | Patient Health Record ---
Author Name Unknown Organization [facility] Address [address] [place] [address] Care Team Providers Care Lofter Name Role Phone Jennifer Walter Primary Care Provider BEVERLY Rios Unavailable [phone] ALLERGIES Allergen (clinical drug ingredient) Drug/Non Drug Allergy documented on EMR Reaction Allergy Type Onset Date Status sulfamethoxazole / trimethoprim Bactrim Unknown Drug Allergy Active RESULTS Component Value Reference Range Notes CULTURE, DEEP WOUND Reviewed date:04/01/2023 07:56:57 AM Interpretation: Performing Lab:Testing performed or reported by [facility], a Service of [facility], [address] [place] [id number] Hollis Lagunas MD, Seo Associate [facility]# [id number] Notes/Report: SPECIMEN DESCRIPTION ULCER E SWAB SPECIAL REQUESTS NONE GRAM STAIN 4+ GRAM NEGATIVE RODS GRAM STAIN 4+ GRAM POSITIVE COCCI GRAM STAIN 1+ GRAM POSITIVE RODS GRAM STAIN NO CELLS SEEN CULTURE 4+ PSEUDOMONAS AERUG INOSA This isolate was identified using Maldi-TOF CULTURE system These AST res ults were performed on the [employer] ID and AST CULTURE system CULTURE 4+ STAPHYLOCOCCUS AU REUS. This isolate was identified using Maldi-TOF CULTURE system These AST res ults were performed on the [employer] 2 ID and AST CULTURE system REPORT STATUS FINAL 04/01/2023 ORGANISM 4+ PSEUDOMONAS AERUG INOSA This isolate was identified using Maldi-TOF system These AST results were performed on the [employer] ID and AST system METHOD MIN. INHIB. [...] Interpretation: Performing Lab:Testing performed or reported by [facility], a Service of [facility], [address] [place] [address] [place] [address] Hollis Lagunas MD, Seo Associate [facility]# [id number] Notes/Report: SPECIMEN DESCRIPTION ULCER R FOOT SPECIAL REQUESTS NONE GRAM STAIN NO CELLS OR ORGANISM S SEEN CULTURE 1+ PSEUDOMONAS AERUG INOSA This isolate was identified using Maldi-TOF CULTURE system These AST res ults were performed on the Microscan ID and AST CULTURE system CULTURE No other significant microorganisms isolated. CULTURE Please consult the laboratory [phone]) within 7 days if more CULTURE definitive studies a re clinically indicated. REPORT STATUS FINAL 04/26/2023 ORGANISM 1+ PSEUDOMONAS AERUG INOSA This isolate was identified using Maldi-TOF system These AST results were performed on the [employer] ID and AST system METHOD MIN. INHIB. [...] rigidus of right foot (M20.21) Active confirmed 366622924 Problem Hammer toe of left foot (M20.42) Active confirmed 811506311 Problem Hammer toe of right foot (M20.41) Active confirmed 057540975 Problem Skin ulcer of toe of left foot, limited to breakdown of skin (L97.521) Active confirmed 930645755 Problem Idiopathic peripheral neuropathy (G60.9) Active confirmed 22495487 Problem Status post left foot surgery (Z98.890) Active confirmed Postprocedural states (957356251) Problem Charcot's arthropathy (M14.60) Active confirmed 325681121 Problem Gait instability (R26.81) Active confirmed 43217556 Problem Skin ulcer of toe of right foot with fat layer exposed (L97.512) Active confirmed 97106280367801046 Problem Peripheral polyneuropathy (G62.9) Active confirmed 46059589 Problem Hammertoe of left foot (M20.42) Active confirmed 273544125 Problem Ulcer of right second toe with fat layer exposed (L97.512) Active confirmed 303816962 Problem Skin ulcer of second toe of [...] 06/25/2023 Encounters Encounter Location Date Provider Diagnosis [facility] [address] 06/07/2023 BEVERLY MOELLER [facility] [address] 10/09/2023 BEVERLY MOELLER [facility] [address] 12/27/2022 BEVERLY MOELLER Idiopathic peripheral neuropathy G60.9 ; Ulcer of right second toe with fat layer exposed L97.512 ; Charcot's arthropathy M14.60 ; Gait instability R26.81 and Hammer toe of left foot M20.42 [facility] [address] 03/29/2023 BEVERLY MOELLER Idiopathic peripheral neuropathy G60.9 ; Ulcer of right second toe with fat layer exposed L97.512 ; Charcot's arthropathy M14.60 ; Gait instability R26.81 and Hammer toe of left foot M20.42 [facility] [address] 04/23/2023 BEVERLY MOELLER Skin ulcer of second toe of right foot with necrosis of muscle L97.513 ; Hammer toe of right foot M20.41 and Idiopathic peripheral neuropathy G60.9 [facility] [address] 05/06/2023 BEVERLY MOELLER Hammer toe of right foot M20.41 and Skin ulcer of toe of right foot with fat layer exposed L97.512 [facility] [address] 05/24/2023 BEVERLY MOELLER Hammer toe of right foot M20.41 ; Healed ulcer of right foot Z87.2 ; Hammertoe of left foot M20.42 ; Pre-ulcerative calluses L84 and Peripheral polyneuropathy G62.9 [facility] [address] 06/10/2023 BEVERLY MOELLER Hammertoe of left foot M20.42 ; Pre-ulcerative calluses L84 and Peripheral polyneuropathy G62.9 [facility] [address] 06/25/2023 BEVERLY MOELLER Hammertoe of left foot M20.42 ; Pre-ulcerative calluses L84 and Peripheral polyneuropathy G62.9 [facility] [address] 04/01/2023 BEVERLY MOELLER [facility] [address] 04/03/2023 BEVERLY MOELLER [facility] [address] 04/03/2023 BEVERLY MOELLER ASSESSMENTS Encounter Date [...] Date X ray : Foot, left 3v 03/29/2023 X ray : Foot, left 3v 03/20/2022 X ray : Foot, left 3v 04/07/2020 X ray : Foot, left 3v 12/27/2022 X ray : Foot, left 3v 09/20/2022 X ray : Foot, left 3v 12/18/2021 X ray : Foot, left 3v 03/17/2021 X ray : Foot, right 3v 10/24/2020 X ray : Foot, right 3v 03/29/2023 X ray : Foot, right 3v 03/17/2021 X ray : Foot, right 3v 12/18/2021 X ray : Foot, right 3v 09/20/2022 X ray : Foot, right 3v 12/27/2022 X ray : Foot, right 3v 11/21/2020 X ray : Foot, right 3v 10/03/2020 X ray : Foot, right 3v 03/20/2022 Insurance Providers Payer Name Payer Address Payer Phone Subscriber Number Group Number Insured Name Patient Relationship to Insured Coverage Start Date Coverage End Date [facility] [id number] [facility] [id number] [facility] [place] [address] [id number] Narinder Macias Self - patient is the [...]
[2023-10-28 15:07] VITALS: BP 138/96; PULSE 89; RESP 16; TEMP 36.7; O2SAT 96; BMI 32.7
[2023-10-28] MEDS: Lactated Ringers 1,000 ML 80 ML IVCONT (15:36)
--- NOTE | 2023-10-28 17:50 | MHC.SHP ---
Pre-Procedural Eval Section A - 24 Hr Update-Section A only Date of Service: 10/28/23 The patient is an INPATIENT: No Changes since office visit: No Cold of Flu in the past 2 weeks, No New Medical Problems, No Changes in Medication and No Patient answered all questions The patient has been examined within 24 hours of the surgical procedure. The History & Physical has been completed within 30 days and I have reviewed it.: No Section B - Complete if H&P > 30 days Chief Complaint: Hydronephrosis with renal and ureteral calculous o Details of Present Illness: Failure to pass kidney stones found at recent emergency room visit distal left ureteric stones Relevant Family History (Specify if Yes): No Relevant Social History: None Present Medications: see Short Stay Collaborative assessment Medical History: No relevant PMH History of Previous Operations: No relevant previous surgery Allergies: Allergies Allergy/AdvReac Type Severity Reaction Status Date / Time Sulfa (Sulfonamide Allergy Mild Rash Verified 10/28/23 15:06 Antibiotics) sulfamethoxazole Allergy Mild Rash Unverified 10/28/23 15:06 [From BACTRIM] trimethoprim [From BACTRIM] Allergy Mild Rash Unverified 10/28/23 15:06 Review of Systems Sugical H&P ROS: Negative: Constitution, Cardiovascular, Respiratory, Neurological, Psychiatric, Hem-Onc, Allergic/Immunologic, Gastrointestinal, Genitourinary, Musculoskeletal, Integumentary, Endocrine and Eyes/Ears/Nose/Throat Exam Surgical H&P Exam: Normal: HEENT, Normal: Heart, Normal: Lungs, Normal: Extremities, Normal: Abdomen, Normal: Skin and Normal: Neurological Plan Diagnosis/Plan: Unchanged (Cystoscopy, left ureteroscopy, left retrograde, laser, basket, stent placement) I have reviewed the history and physical and performed a pertinent physical examination on my patient. No changes have occurred unless specified. Time Spent With Patient Time: Total time managing care of this patient today ____ minutes.
--- NOTE | 2023-10-28 17:53 | HO.ANESPROP2 ---
HPI - Anesthesia Eval Consult details Narrative: left ureter stone ON LICENSE OF [facility] Past Medical History Medical History (Updated 10/28/23 @ 15:46 by Becca Delgado) SALVATORE (obstructive sleep apnea) Chronic cellulitis Amputation toe Neuropathy Charcot's joint of foot Hypertension Family History Family history of problems with anesthesia: No Surgical History Surgical History (Updated 10/28/23 @ 15:05 by Becca Delgado) History of surgery on extremity H/O foot surgery History of Problems with Anesthesia: No Social History Social History Patient Tobacco Use Status: Never used Tobacco Use of substances other than those prescribed or required for medical reasons: No Are you DNR?: No Advance Directives: No Advance Directives Information Provided: Yes Meds Allergies Allergy/AdvReac Type Severity Reaction Status Date / Time Sulfa (Sulfonamide Allergy Mild Rash Verified 10/28/23 15:06 Antibiotics) sulfamethoxazole Allergy Mild Rash Unverified 10/28/23 15:06 [From BACTRIM] trimethoprim [From BACTRIM] Allergy Mild Rash Unverified 10/28/23 15:06 Active Medications: Current Medications Lactated Ringer's (Lr) 1,000 mls @ 80 mls/hr IVCONT .[id number] EMILIE Last Admin: 10/28/23 15:36 Dose: 80 mls/hr Home Medications Medication Instructions Recorded Confirmed Last Taken Type losartan 100 1 tab PO DAILY 10/28/23 10/28/23 10/28/23 History mg-hydrochlorothiazide 25 mg tablet Exam Height,Weight and Vital Signs: Height 5 ft 11 in Weight 106.413 kg Last Vital Signs Temp 98.1 F 10/28/23 15:07 Pulse 89 10/28/23 15:07 Resp 16 10/28/23 15:07 BP 138/96 H 10/28/23 15:07 Pulse Ox 96 10/28/23 15:07 O2 Del Method Room Air 10/28/23 15:07 Airway Mallampati Class: II TM Dist: >3cm Neck ROM: Full Loose/Missing/Broken Teeth: No Heart: RRR Lungs: CTA Assessment and Plan Assessment Anesthesia Assessment: Anesthesia Plan Discussed and Chart Reviewed Final Anesthetic Review Family History of Problems with Anesthesia: No History of Problems with Anesthesia: No NPO: Yes ASA Class: III Final Preanesthetic Review: No Changes in Pt Med Stat, Meds/Allgs Chart Reviewed, Consent Obtained/Reviewed and Anes Risks/Benef Reviewed Patient Risk: Intermediate Procedure Risk: Low Anesthetic Plan Anesthetic Plan: GA Disposition: Standard PACU
--- NOTE | 2023-10-28 17:59 | PC.NURSE ---
Patient in preop. SR on monitor with frequent episodes of bigeminy and back into SR. Patient asymptomatic. Resting quietly in stretcher. Dr. Harp made aware. No new orders at this time.
--- NOTE | 2023-10-28 18:00 | PC.NURSE ---
Report given to Adela CASTROU RN.
--- NOTE | 2023-10-28 18:45 | W.PM.OPN ---
Operative Note Operative Note Date of Service: 10/28/23 Narrative: PreOperative Diagnosis: Distal left ureteric stones Post Operative Diagnosis: Distal left ureteric stones Procedure: - cystoscopy, left retrograde - left dilatation of ureteric orifice under fluoroscopy - left ureteroscopy, laser lithotripsy, stone basketing - left stent placement Surgeon: Dr Isak Lopez Anesthesia: General Indications for procedure: Seen in ER with distal left ureteric stones. Unable to pass after 72 hours Procedure: After informed consent was verified the patient was brought to the operating room and placed in a supine position. Anesthesia was administered per protocol. The patient was placed in a modified dorsal lithotomy position and prepped and draped in a sterile fashion. Safety pause time-out and side of surgery were confirmed. Images were available for review. Antibiotic administration confirmed. A 22 Barbadian cystoscope was inserted per urethra. The urethra was without abnormality. The bladder was normal in its entirety. Both ureteric orifices were seen in normal position. Significantly trabeculated bladder with ureters moved to edge The left ureteric orifice was cannulated and a retrograde examination was performed. Filling defect distal left ureter . A Sensor guidewire was placed up to the level of the renal pelvis under fluoroscopy. The rigid cystoscope was removed. A Gabriela dilator was placed over the Sensor guidewire and used to dilate the ureteric orifice under fluoroscopy. The dilator was removed. The semi rigid ureteral scope was placed alongside the Sensor guidewire. Stones encountered there were 2 of them in the distal left ureter. Using a 365 micro holmium laser fiber the stone was broken into small pieces using a combination of hammer and dusting techiques. Stone fragments were removed from the ureter using a flat wire basket. Once the fragments were removed a decision was made to place a ureteric stent. Based on the height of the patient a 6 Fr x 28 stent was used. The string was removed from the stent prior to placement The rigid cystoscope was backloaded over the wire and advanced into the bladder. A 6 Barbadian by 28 cm double-J stent was placed into the renal pelvis and bladder under a combination of fluoroscopy and direct visualization. The bladder was emptied. The patient tolerated the procedure well and was extubated in the operating room. They were transferred in stable condition to the recovery area. Pathology: stones Drains: Double J stent as described above
[2023-10-28 18:57] VITALS: BP 110/65; PULSE 83; RESP 15; TEMP 36.4; O2SAT 92
[2023-10-28 19:02] VITALS: BP 122/77; PULSE 75; RESP 16; O2SAT 96
[2023-10-28 19:07] VITALS: BP 122/63; PULSE 83; RESP 16; O2SAT 95
[2023-10-28 19:12] VITALS: BP 131/73; PULSE 71; RESP 16; O2SAT 96
[2023-10-28 19:27] VITALS: BP 131/73; PULSE 76; RESP 16; TEMP 36.7; O2SAT 96
[2023-11-07 14:08] LABS: Stone Source URETERAL STONE
== END 2023-10-28 19:35 | disposition home or self-care (01) ==
PROVIDERS: PCP Internal Medicine; Visit Provider Urology
PROC: (CPT 52356; principal; 2023-10-28 16:40)
DX: N13.2 Hydronephrosis with renal and ureteral calculous obstruction (principal); N13.4 Hydroureter; I10 Essential (primary) hypertension; M14.679 Charcot's joint, unspecified ankle and foot; L03.90 Cellulitis, unspecified; Z89.429 Acquired absence of other toe(s), unspecified side; G62.9 Polyneuropathy, unspecified; G47.33 Obstructive sleep apnea (adult) (pediatric); Z98.890 Other specified postprocedural states; Z88.2 Allergy status to sulfonamides; Z88.1 Allergy status to other antibiotic agents; Z79.899 Other long term (current) drug therapy
CPT/HCPCS: 52356; 82365; 88300; C1758; C1769; C2617; J1100; J1885; J2405; J2704; J3010; Q9967

== ENCOUNTER → 2023-10-28 14:09 | Outpatient (BNV) | payer OTHER, MEDICARE, SELFPAY | PROVIDERS: PCP Internal Medicine; Visit Provider Urology | DX: N20.1 Calculus of ureter (principal) | CPT/HCPCS: 52356; 74420 ==

== ENCOUNTER 2023-11-04 12:33 | Outpatient (REF) | payer MEDICARE, SELFPAY ==
[2023-11-04 12:54] LABS: MANUAL DIFF FLAG NO
[2023-11-04 13:17] LABS: Basophils Percent Auto 0.5 % (0-2); Eosinophils Absolute Auto 0.4 X10*3/uL (0.0-0.4); Eosinophils Percent Auto 5.1 % (0-4); Hematocrit 44.6 % (42.0-52.0); Hemoglobin 15.6 g/dl (14.0-18.0); Imm Gran Abs Auto 0.04 X10*3/uL (0.00-0.03); Imm Gran Pct Auto 0.5 % (0.0-0.4); Lymphocytes Absolute Auto 1.7 X10*3/uL (1.2-4.9); Lymphocytes Percent Auto 19.8 % (20-40); Mean Corpuscular Hemoglobin 32.1 pg (27.0-33.0); Mean Corpuscular Volume 91.8 fL (80.0-98.0); Mean Platelet Volume 8.9 fL (9.4-12.4); Monocytes Absolute Auto 0.7 X10*3/uL (0.1-1.2); Monocytes Percent Auto 8.6 % (2-11); Neutrophils Absolute Auto 5.6 x10*3/uL (2.0-8.3); Neutrophils Percent Auto 65.5 % (45-73); Platelet Count 197 X10*3/uL (160-400); Red Blood Count 4.86 X10*6/uL (4.60-5.80); Red Cell Distribution Width 13.1 % (11.0-16.0); White Blood Count 8.6 X10*3/uL (4.8-10.8)
[2023-11-04 14:45] LABS: Alanine Aminotransferase 12 U/L (0-40); Albumin Level 4.1 g/dL (3.5-5.0); Alkaline Phosphatase 72 U/L (39-117); Anion Gap 13 (12-20); Aspartate Amino Transferase 14 U/L (5-37); Bilirubin Total 1.1 mg/dL (0.0-1.0); Blood Urea Nitrogen 17 mg/dL (9-16); Calcium 9.9 mg/dL (8.4-10.2); Carbon Dioxide 26 mmol/L (22-29); Chloride 106 mmol/L (96-108); Cholesterol 189 mg/dL (<200); Estimated Glomerular Filt Rate > 60; Glucose Random 93 mg/dL (60-115); HDL Cholesterol 38 mg/dL (>40); LDL Cholesterol Calculated 115 mg/dL (<100); Potassium 4.2 mmol/L (3.3-5.1); Sodium 141 mmol/L (135-145); Triglycerides 181 mg/dL (<150)
[2023-11-04 14:54] LABS: Prostate Specific Antigen 4.36 ng/mL (<0.05-4.0)
== END 2023-11-04 12:34 | disposition home or self-care (01) ==
LOC: HO.LAB 12:33
PROVIDERS: PCP Internal Medicine; Visit Provider Internal Medicine
DX: E78.1 Pure hyperglyceridemia (principal); G47.33 Obstructive sleep apnea (adult) (pediatric); R33.9 Retention of urine, unspecified; I10 Essential (primary) hypertension; N20.1 Calculus of ureter; N20.0 Calculus of kidney; Z46.6 Encounter for fitting and adjustment of urinary device; Z12.5 Encounter for screening for malignant neoplasm of prostate; Z79.899 Other long term (current) drug therapy
CPT/HCPCS: 36415; 52310; 80053; 80061; 81003; 84153; 85025

== ENCOUNTER 2023-11-04 14:12 | Outpatient (AMB) | payer OTHER, SELFPAY ==
--- NOTE | 2023-11-04 14:24 | A.OFFVIS_ITS ---
Intake Intake Visit Reasons: Stent removal Intake Note: Patient presents for Stent Removal Urology Medications: Tamsulosin Blood Thinner: none Antibiotic Allergies: Bactrim and Sulfa Dust Collector Ore Crushing Required: No Accompanied by: Self / Same As Patient Allergies Sulfa (Sulfonamide Antibiotics) Allergy (Mild, Verified 11/04/23 15:30) Rash sulfamethoxazole [From BACTRIM] Allergy (Mild, Verified 11/04/23 15:30) Rash trimethoprim [From BACTRIM] Allergy (Mild, Verified 11/04/23 15:30) Rash Medication List - Last Reconciled 11/04/23 by EULOGIO Chan losartan-hydrochlorothiazide 100-25 mg 1 tab PO DAILY tamsulosin (Flomax) 0.4 mg PO DAILY HPI HPI Comments History of Present Illness Details Narinder is a very pleasant 63-year-old male patient of Dr. Walter. He has a past medical history of obstructive sleep apnea with compliance of CPAP, chronic cellulitis of bilateral lower extremities, amputation of toes, neuropathy, and hypertension. He presents to the office today for follow-up of his nephrolithiasis. Of note, patient underwent surgical procedure on 10/28/2023 for distal left uterine stones. Cystoscopy, left retrograde, left dilatation of ureteric orifice under fluoroscopy, left ureteroscopy, laser lithotripsy, stone basketing, and left stent placement with Dr. Lopez. He presents to the office today for cystoscopy stent removal. He reports noting urinary hesitancy and changes to urinary stream s/p surgical procedure however this has since subsided. Cystoscopy performed in office with removal of left-sided ureteral stent. In office urinalysis results reviewed with the patient today. Discussed at length potential causes of nephrolithiasis. Prior to this surgical procedure he had no history of nephrolithiasis and or previous surgical history for nephrolithiasis. He otherwise denies any other issues or concerns. [facility] Medical History SALVATORE (obstructive sleep apnea) Chronic cellulitis Amputation toe Neuropathy Charcot's joint of foot Hypertension Surgical History History of surgery on extremity H/O foot surgery Social History Patient Tobacco Use Status: Never used Tobacco Review of Systems Const Reports no additional complaints Eyes Reports no additional complaints ENT Reports no additional complaints Card Reports as per [facility] Resp Reports no additional complaints GI Reports no additional complaints Reports as per [facility] Musc Reports as per [facility] Skin/Breast Reports as per [facility] Neuro Reports as per HPI Psych Reports no additional complaints Endo Reports as per HPI Partha/Lymph Reports no additional complaints Aller/Immun Reports no additional complaints Physical Exam Const General: cooperative, healthy appearing, comfortable, no acute distress, well developed, alert and awake Nutritional Appearance: overweight Orientation/consciousness: patient oriented x3 Limitations: no limitations HEENT Head: Yes normal to inspection, Yes normocephalic and Yes atraumatic Ears: hearing grossly normal bilaterally Eyes General: appearance normal, both eyes and all related structures Neck Neck: Yes normal visual inspection and Yes trachea midline Chest Chest palpation & inspection: normal inspection of the chest Resp Effort & Inspection: normal respiratory effort and able to speak in complete se ntences Cardio Rate: regular rate GI Inspection: Yes normal to inspection General: Yes no CVA tenderness Back/Spine/Pelvis Back: no CVA tenderness Skin General skin exam: no rashes or lesions noted Neuro General: patient oriented x3 Extrem General: Yes normal to inspection Psych Appearance: grossly normal and well kempt Mental Status: mental status grossly normal Speech and movement: Normal speech and movement present and Clear speech present Affect: normal affect Attitude: cooperative Thought process: Normal thought process present Thought content: Normal thought content present Insight: Fair insight present (Psych) Judgement: Fair judgement present (Psych) Office Procedures Cystoscopy Consent Discussed risk and benefit or proposed procedure with the patient. Information consent for procedure given to the patient. Discussed technical aspects, risks, benefits and alternatives in full. Addressed all of the patient's questions and concerns regarding the procedure. The patient demonstrated knowledge and understanding. They wish to proceed with this procedure. Preparation The patient was prepped in the usual manner. A professor of mathematics was present and in the room. Genitalia was prepped with betadine solution in a sterile manner. Lidocaine Jelly 2% was placed into the urethra and 16Fr flexible Olympus cystoscope was inserted into the meatus after adequate lubrication. Procedure A well lubricated 16 Monegasque cystoscope was placed No abnormality noted of urethra during placement Indwelling stent seen within bladder emerging from left ureteric orifices The stent was grasped with a 3 prong grasper and removed without difficulty patient tolerated procedure well [id number] with stent removal DISPOSABLE SCOPE URO-G FLEXIBLE SCOPE Procedure code (CPT) selection complete Office Meds lidocaine HCl 2 % mucosal jelly in applicator Performing Provider: EULOGIO Chan Performing Location: [facility] Administered by: Bernard Wills LPN on 11/04/23 14:46 Dose Route Admin Location Dispensed Lot Number Expiration Date [facility] Legger Press Operator 10 mL intra-urethral 20 mL nitrofurantoin monohydrate/macrocrystals 100 mg capsule Performing Provider: EULOGIO Chan Performing Location: [facility] Administered by: Bernard Wills LPN on 11/04/23 14:46 Dose Route Admin Location Dispensed Lot Number Expiration Date [facility] Legger Press Operator 100 mg PO 1 cap naproxen 500 mg tablet Performing Provider: EULOGIO Chan Performing Location: [facility] Administered by: Bernard Wills LPN on 11/04/23 14:46 Dose Route Admin Location Dispensed Lot Number Expiration Date [place] Legger Press Operator 500 mg PO 1 tab Results AMB Urinalysis, Automated UA Leukoctes 125 Rachna/uL Last Edit by Franca Freeman CMA on 11/04/23 14:36 UA Nitrite Negative Last Edit by Franca Freeman CMA on 11/04/23 14: 36 UA Urobilinogen 0.2 mg/dL Last Edit by Franca Freeman CMA on 4 14:36 UA Protein 30 mg/dL Last Edit by Franca Freeman CMA on 11/04/23 14:3 6 UA pH 6.0 Last Edit by Franca Freeman CMA on 11/04/23 14:36 UA Blood 200 Oscar/uL Last Edit by Franca Freeman CMA on 11/04/23 14:3 6 UA Specific [place] 1.020 Last Edit by Franca Freeman CMA on 14:36 UA Ketone Negative Last Edit by Franca Freeman CMA on 11/04/23 14:3 6 UA Bilirubin 0 mg/dL Last Edit by Franca Freeman CMA on 11/04/23 14: 36 UA Glucose 0 mg/dL Last Edit by Franca Freeman CMA on 11/04/23 14:36 Results Reviewed Results Reviewed: Laboratory Last Values Urine pH (Auto) 6.0 11/04/23 14:26 Specific [place] (Auto) 1.020 11/04/23 14:26 Urine Protein (Auto) 30 mg/dL 11/04/23 14:26 Glucose (UA)(Auto) 0 mg/dL 11/04/23 14:26 Urine Ketones (Auto) Negative 11/04/23 14:26 Urine Blood (Auto) 200 Oscar/uL 11/04/23 14:26 Urine Nitrite (Auto) Negative 11/04/23 14:26 Urine Bilirubin (Auto) 0 mg/dL 11/04/23 14:26 Urine Urobilinogen (Auto) 0.2 mg/dL 11/04/23 14:26 Leukocyte Esterase (Auto) 125 Rachna/uL 11/04/23 14:26 Date of Service: 10/23/23 EXAMINATION: CT ABDOMEN AND PELVIS WITHOUT CONTRAST FINDINGS: LUNG BASES: No pleural or pericardial effusion. LIVER, GALLBLADDER, AND BILIARY TREE: The noncontrast liver is normal in size and contour. No biliary ductal dilatation is present. The gallbladder is unremarkable with no evidence of radiopaque gallstones, gallbladder wall thickening, or obvious pericholecystic inflammatory changes. PANCREAS: No ductal dilatation. SPLEEN: Not enlarged. ADRENAL GLANDS: No adrenal mass. KIDNEYS AND URETERS: Edematous left kidney with moderate hydroureteronephrosis to the level of 4 mm and 7 mm calculi in the distal left ureter proximal to the ureterovesical junction. There is left perinephric, peripelvic and periureteric stranding. 4 mm nonobstructing calculus upper pole right kidney. Punctate nonobstructing calculus lower pole right kidney. No right hydronephrosis. No right perinephric stranding. BLADDER: Multiple bladder diverticula. GASTROINTESTINAL TRACT: Extensive diverticular disease of the colon. No small bowel obstruction. ABDOMINAL WALL: Small fat-containing umbilical hernia. LYMPH NODES: No bulky lymphadenopathy. VASCULAR: Normal caliber abdominal aorta. PELVIC VISCERA: Enlarged prostate gland. OSSEOUS STRUCTURES: No destructive bone lesions. IMPRESSION: 4 mm and 7 mm obstructing calculi within the distal left ureter proximal to the ureterovesical junction. Moderate left hydroureteronephrosis. Multiple bladder diverticula. Nonobstructing right renal calculi. No right hydronephrosis Assessment & Plan Assessment & Plan (1) Bilateral nephrolithiasis: Code(s): N20.0 - Calculus of kidney Plan In office urinalysis results reviewed with the patient today; as noted above. In office cystoscopy performed and left ureteral stent was removed without difficulty Discussed at length potential causes of nephrolithiasis. Discussed further metabolic workup with 24 hour urine collection and labs. Discussed, educated, and stressed the importance of drinking plenty of water daily. Discussed continuing to adding 1 oz of lemon juice to water daily. Patient currently denies any bothersome urinary issues or concerns. Will obtain renal ultrasound in 3 months. Follow-up in 3 months with imaging to be completed prior; or sooner with any issues, concerns, and or questions. Orders: Orders AMB Urinalysis Automated Today R33.9 - Retention of urine, unspecified AMB Cystoscopy Today N20.1 - Calculus of ureter US renal BI 3 Months N20.0 - Calculus of kidney Patient Instructions: The patient had an opportunity to ask questions regarding the treatment plan. All questions were answered. Physical exam, labs, and imaging were discussed and reviewed in detail. As well as risks, benefits, and discussion of treatment choices. No major barriers to understanding were identified. The patient expressed understanding and agreement with the above treatment plan. The patient was made aware they should contact our office by phone for worsening of their current condition, the appearance of new symptoms, or with any questions or concerns. Compliance is encouraged with any medications and follow up testing that is ordered. It is a privilege to be allowed the opportunity to participate in? your urological care.? Again, if you have any questions or concerns If you have any questions or concerns please do not hesitate to contact me. The office is [phone]. This note is constructed using voice recognition software. While every effort has been made to ensure accuracy chief librarian branch or department errors may have been included. Yours sincerely, EULOGIO Chan Coding Level of Care Code Est Pt Level 4 (92448) Diagnoses Bilateral nephrolithiasis N20.0 CPT Codes Cystoscopy - CPT: 32990-[id number] with stent removal ([id number])
== END 2023-11-04 15:31 | disposition home or self-care (01) ==
PROVIDERS: PCP Internal Medicine; Visit Provider Nurse Practitioner Family
DX: N20.1 Calculus of ureter (principal); R33.9 Retention of urine, unspecified
CPT/HCPCS: 52310; 99214

== ENCOUNTER 2024-01-22 07:36 | Outpatient (REF) | payer MEDICARE, SELFPAY ==
--- NOTE | ~2024-01-22 | US_ITS ---
EXAMINATION: US RETROPERITONEAL LIMITED (RENAL ONLY) CLINICAL INFORMATION: Calculus of kidney. COMPARISON: CT abdomen and pelvis 10/23/2023. TECHNIQUE: Real-time imaging of the kidneys. FINDINGS: RIGHT KIDNEY: 10.2 x 5.6 x 5.7 cm (SAG x AP x TRV). The kidney is normal in size, contour, and echogenicity. Renal cortical thickness is normal. No focal parenchymal lesions or hydronephrosis. 4 mm nonobstructing calculus in the lower pole. LEFT KIDNEY: 11.2 x 4.9 x 4.4 cm (SAG x AP x TRV). The kidney is normal in size, contour, and echogenicity. Renal cortical thickness is normal. No hydronephrosis. Questionable 3 mm nonobstructing calculus in the upper pole. Simple cortical and parapelvic cysts. No imaging follow-up is recommended. US/US renal BI IMPRESSION: 4 mm nonobstructing calculus in the lower pole right kidney. Possible 3 mm nonobstructing calculus in the upper pole of the left kidney. No hydronephrosis.
== END 2024-01-22 07:37 | disposition home or self-care (01) ==
LOC: HO.US 07:36
PROVIDERS: PCP Internal Medicine; Visit Provider Nurse Practitioner Family
DX: N20.0 Calculus of kidney (principal)
CPT/HCPCS: 76775

== ENCOUNTER 2024-02-03 09:18 | Outpatient (AMB) | payer MEDICARE, SELFPAY ==
--- NOTE | 2024-02-03 09:43 | A.OFFVIS_ITS ---
Intake Visit Reasons: 3m nephrolithiasis w/ultrasound (set) Intake Note: Patient presents for follow up nephrolithiasis and ultrasound results Urology Medications: Tamsulosin Blood Thinner: none Antibiotic Allergies: Bactrim and Sulfa Gis Coordinator Required: No Accompanied by: Self / Same As Patient Allergies Sulfa (Sulfonamide Antibiotics) Allergy (Mild, Verified 02/03/24 10:06) Rash sulfamethoxazole [From BACTRIM] Allergy (Mild, Verified 02/03/24 10:06) Rash trimethoprim [From BACTRIM] Allergy (Mild, Verified 02/03/24 10:06) Rash Medication List - Last Reconciled 02/03/24 by EULOGIO Chan losartan-hydrochlorothiazide 100-25 mg 1 tab PO DAILY HPI Comments Details: Narinder is a very pleasant 63-year-old male patient of Dr. Walter. He has a past medical history of obstructive sleep apnea with compliance of CPAP, chronic cellulitis of bilateral lower extremities, amputation of toes, neuropathy, and hypertension. He presents to the office today for follow-up of his nephrolithiasis. Recent renal imaging results reviewed with the patient today. Right kidney with 4 mm nonobstructing calculus in the lower pole otherwise no lesions or hydronephrosis noted. Left kidney with questionable 3 mm nonobstructing calculus in the upper pole. Simple cortical and peripelvic cysts. No imaging follow-up is recommended per radiology report. No hydronephrosis. Of note, patient underwent surgical procedure on 10/28/2023 for distal left uterine stones. Cystoscopy, left retrograde, left dilatation of ureteric orifice under fluoroscopy, left ureteroscopy, laser lithotripsy, stone basketing, and left stent placement with Dr. Lopez. During last office visit approximately 3 months ago in office cystoscopy was performed and left ureteral stent was removed. In discussion with the patient today he reports to be doing and feeling well. He reports he has increased his fluid intake. He currently denies any bothersome urinary issues or concerns. He denies urinary urgency, urinary frequency, incontinence, nocturia, hematuria, dysuria, foul smelling urine, changes to urinary stream, flank pain, fever, and or chills. He is happy with his current voiding parameters. Discussed at length potential causes of nephrolithiasis. Discussed further metabolic workup. In office urinalysis results reviewed with the patient today. He otherwise offers no other issues or concerns at this time. [facility] Medical History SALVATORE (obstructive sleep apnea) Chronic cellulitis Amputation toe Neuropathy Charcot's joint of foot Hypertension Surgical History History of surgery on extremity H/O foot surgery Social History Patient Tobacco Use Status: Never used Tobacco Review of Systems Const Reports no additional complaints Eyes Reports no additional complaints ENT Reports no additional complaints Card Reports as per HPI Resp Reports no additional complaints GI Reports no additional complaints Reports as per HPI Musc Reports as per HPI Skin/Breast Reports as per HPI Neuro Reports as per HPI Psych Reports no additional complaints Endo Reports as per HPI Partha/Lymph Reports no additional complaints Aller/Immun Reports no additional complaints Physical Exam Const General: cooperative, healthy appearing, comfortable, no acute distress, well developed, alert and awake Nutritional Appearance: overweight Orientation/consciousness: patient oriented x3 Limitations: no limitations HEENT Head: Yes normal to inspection, Yes normocephalic and Yes atraumatic Ears: hearing grossly normal bilaterally Eyes General: appearance normal, both eyes and all related structures Neck Neck: Yes normal visual inspection and Yes trachea midline Chest Chest palpation & inspection: normal inspection of the chest Resp Effort & Inspection: normal respiratory effort and able to speak in complete sentences Cardio Rate: regular rate GI Inspection: Yes normal to inspection General: Yes no CVA tenderness Back/Spine/Pelvis Back: no CVA tenderness Skin General skin exam: no rashes or lesions noted Neuro General: patient oriented x3 Extrem General: Yes normal to inspection Psych Appearance: grossly normal and well kempt Mental Status: mental status grossly normal Speech and movement: Normal speech and movement present and Clear speech present Affect: normal affect Attitude: cooperative Thought process: Normal thought process present Thought content: Normal thought content present Insight: Fair insight present (Psych) Judgement: Fair judgement present (Psych) Results AMB Urinalysis, Automated UA Leukoctes 70 Rachna/uL Last Edit by Elaine Coates on 02/03/24 09:56 UA Nitrite Negative Last Edit by Elaine Coates on 02/03/24 09:56 UA Urobilinogen 0.2 mg/dL Last Edit by Elaine Coates on 02/03/24 09:56 UA Protein 15 mg/dL Last Edit by Elaine Coates on 02/03/24 09:56 UA pH 6.0 Last Edit by Elaine Coates on 02/03/24 09:56 UA Blood 25 Oscar/uL Last Edit by Elaine Coates on 02/03/24 09:56 UA Specific [place] 1.025 Last Edit by Elaine Coates on 02/03/24 09:56 UA Ketone Negative Last Edit by Elaine Coates on 02/03/24 09:56 UA Bilirubin 0 mg/dL Last Edit by Elaine Coates on 02/03/24 09:56 UA Glucose 0 mg/dL Last Edit by Elaine Coates on 02/03/24 09:56 Results Reviewed Results Reviewed: Laboratory Last Values Urine pH (Auto) 6.0 02/03/24 09:46 Specific [place] (Auto) 1.025 02/03/24 09:46 Urine Protein (Auto) 15 mg/dL 02/03/24 09:46 Glucose (UA)(Auto) 0 mg/dL 02/03/24 09:46 Urine Ketones (Auto) Negative 02/03/24 09:46 Urine Blood (Auto) 25 Oscar/uL 02/03/24 09:46 Urine Nitrite (Auto) Negative 02/03/24 09:46 Urine Bilirubin (Auto) 0 mg/dL 02/03/24 09:46 Urine Urobilinogen (Auto) 0.2 mg/dL 02/03/24 09:46 Leukocyte Esterase (Auto) 70 Rachna/uL 02/03/24 09:46 Date of Service: 01/22/24 EXAMINATION: US RETROPERITONEAL LIMITED (RENAL ONLY) FINDINGS: RIGHT KIDNEY: 10.2 x 5.6 x 5.7 cm (SAG x AP x TRV). The kidney is normal in size, contour, and echogenicity. Renal cortical thickness is normal. No focal parenchymal lesions or hydronephrosis. 4 mm nonobstructing calculus in the lower pole. LEFT KIDNEY: 11.2 x 4.9 x 4.4 cm (SAG x AP x TRV). The kidney is normal in size, contour, and echogenicity. Renal cortical thickness is normal. No hydronephrosis. Questionable 3 mm nonobstructing calculus in the upper pole. Simple cortical and parapelvic cysts. No imaging follow-up is recommended. IMPRESSION: 4 mm nonobstructing calculus in the lower pole right kidney. Possible 3 mm nonobstructing calculus in the upper pole of the left kidney. No hydronephrosis. Assessment & Plan Assessment & Plan (1) Bilateral nephrolithiasis: Code(s): N20.0 - Calculus of kidney Category: Medical Plan In office urinalysis results reviewed with the patient today; as noted above. Recent renal imaging results reviewed with the patient today; as noted above. Discussed at length potential causes of nephrolithiasis. Discussed, educated, and stressed the importance of drinking water daily. Discussed adding 1 oz of lemon juice to water daily. Discussed further metabolic workup with 24 hour urine collection and labs; however patient declines at this time. Will continue with surveillance monitoring of nephrolithiasis. Patient currently denies any bothersome urinary issues or concerns. He is happy with his current voiding parameters. Will obtain PSA in 1 year. Will obtain renal ultrasound in 1 year. Follow-up in 1 year with imaging and labs to be completed prior; or sooner with any issues, concerns, and or questions. Orders: Orders US renal BI 1 Year N20.0 - Calculus of kidney Prostate Specific Antigen 1 Year N40.0 - Benign prostatic hyperplasia without lower urinary tract symptoms AMB Urinalysis Automated Today Z13.9 - Encounter for screening, unspecified Patient Instructions: The patient had an opportunity to ask questions regarding the treatment plan. All questions were answered. Physical exam, labs, and imaging were discussed and reviewed in detail. As well as risks, benefits, and discussion of treatment choices. No major barriers to understanding were identified. The patient expressed understanding and agreement with the above treatment plan. The patient was made aware they should contact our office by phone for worsening of their current condition, the appearance of new symptoms, or with any questions or concerns. Compliance is encouraged with any medications and follow up testing that is ordered. It is a privilege to be allowed the opportunity to p articipate in? your urological care.? Again, if you have any questions or concerns If you have any questions or concerns please do not hesitate to contact me. The office is [phone]. This note is constructed using voice recognition software. While every effort has been made to ensure accuracy radiology asst errors may have been included. Yours sincerely, Nena Friedman, GREEN CHAIN OPERATOR-[employer] Coding Level of Care Code Est Pt Level 3 (96149) Diagnoses Bilateral nephrolithiasis N20.0
== END 2024-02-03 10:11 | disposition home or self-care (01) ==
PROVIDERS: PCP Internal Medicine; Visit Provider Nurse Practitioner Family
DX: Z13.9 Encounter for screening, unspecified (principal); N20.0 Calculus of kidney
CPT/HCPCS: 99213

== ENCOUNTER → 2024-02-03 09:18 | Outpatient (BNVA) | payer MEDICARE, SELFPAY | PROVIDERS: PCP Internal Medicine; Visit Provider Nurse Practitioner Family | DX: N20.0 Calculus of kidney (principal) | CPT/HCPCS: 81003; 99212 ==

== ENCOUNTER 2024-09-19 07:53 | Inpatient (IN) | payer MEDICARE, SELFPAY ==
--- NOTE | ~2024-09-19 | XR_ITS ---
CLINICAL HISTORY: wound 3 view left foot Comparison: None Findings: No fractures or dislocations. No periosteal or cortical reactive changes. Diffuse soft tissue swelling in the great toe. Correlate for cellulitis. No significant loss of joint space, osteophytes, or erosions. No ankle effusion. No radiopaque foreign body. IMPRESSION: 1. Soft tissue swelling in the great toe, possible cellulitis. Correlate clinically. This document has been electronically signed by: Gino Francis MD on 09/19/2024 08:40:59
--- NOTE | ~2024-09-19 | MR_ITS ---
CLINICAL HISTORY: left foot infection eval for bone involvement MR of the left foot before and after contrast administration. Comparison 10/16/2019. Findings: There has been partial amputation of the great toe. There is prominent soft tissue edema consistent with cellulitis that is more severe involving the great toe and 1st ray. There are several small abscesses in the great toe extending to the 1st MTP joint. There is fluid with associated enhancement in the tendon sheath of the extensor hallucis longus tendon consistent with septic tenosynovitis. There is edema of the stump of the proximal phalanx of the great toe consistent with osteomyelitis. There is possible mild osteomyelitis of the 1st metatarsal head. There is also possible mild osteomyelitis of the sesamoids of the 1st MTP joint. There are severe degenerative changes in the midfoot. No other definite osteomyelitis is seen. Impression: Osteomyelitis of the stump of the proximal phalanx of the great toe. Possible mild osteomyelitis 1st metatarsal head and associated sesamoids. There are several small abscesses in the great toe. Suspect septic tenosynovitis of the extensor hallucis longus. This document has been electronically signed by: Kalia Maguire MD on 09/20/2024 12:25:38
--- NOTE | ~2024-09-19 | US_ITS ---
CLINICAL HISTORY: left foot infection Left Lower Extremity Arterial Ultrasound Comparison: None Findings: Continuous, pulsatile flow from the common femoral artery through the posterior tibial and dorsalis pedis arteries. No aneurysm or occlusion. Elevated velocities are seen within the proximal/distal femoral, popliteal, posterior tibial, mid peroneal, anterior tibial and dorsalis pedis arteries. Decreased velocities are seen within the deep femoral artery. Velocities are otherwise within normal range. Monophasic waveforms are seen within the deep femoral, mid/distal femoral, popliteal, posterior tibial, peroneal, anterior tibial and dorsalis pedis arteries. Waveforms are otherwise triphasic. Triphasic waveform with prominent spectral broadening is seen in the proximal femoral artery. There is a lymph node in the left groin measuring 0.8 cm in short axis. There is normal morphology. Impression: No aneurysm or occlusion. Abnormal velocities and waveforms detailed above. Monophasic waveforms equate to a 50-99% in diameter reduction. Triphasic waveform with prominent spectral broadening equates to a 20-49% in diameter reduction. This document has been electronically signed by: Martha Desai MD on 09/19/2024 14:04:08
[2024-09-19 08:11] VITALS: BP 141/74; PULSE 75; RESP 20; TEMP 36.3; O2SAT 98; BMI 32.9
--- NOTE | 2024-09-19 08:49 | PC.NURSE ---
Patient with left great toe amputation in 2019, in summer of 2023 noticed 2 wound on toe after walking. Reports areas were healing but 2 days ago toe became swollen, with clear / bloody drainage. Left foot with redness warmth and draining. Patient with covering to wound that he prefers to leave in place until provider is at bedside d/t draining wound. Patient denies pain states he has neuropathy
[2024-09-19 08:52] LABS: MANUAL DIFF FLAG NO
[2024-09-19 08:54] LABS: Basophils Percent Auto 0.4 % (0-2); Eosinophils Absolute Auto 0.4 X10*3/uL (0.0-0.4); Eosinophils Percent Auto 4.5 % (0-4); Hematocrit 39.5 % (42.0-52.0); Hemoglobin 13.4 g/dl (14.0-18.0); Imm Gran Abs Auto 0.08 X10*3/uL (0.00-0.03); Imm Gran Pct Auto 0.8 % (0.0-0.4); Lymphocytes Absolute Auto 0.9 X10*3/uL (1.2-4.9); Lymphocytes Percent Auto 9.5 % (20-40); Mean Corpuscular HGB Conc 33.9 g/dl (31.0-36.0); Mean Corpuscular Hemoglobin 30.3 pg (27.0-33.0); Mean Corpuscular Volume 89.4 fL (80.0-98.0); Mean Platelet Volume 8.5 fL (9.4-12.4); Monocytes Absolute Auto 1.1 X10*3/uL (0.1-1.2); Monocytes Percent Auto 11.8 % (2-11); Neutrophils Absolute Auto 7.1 x10*3/uL (2.0-8.3); Platelet Count 272 X10*3/uL (160-400); Red Blood Count 4.42 X10*6/uL (4.60-5.80); Red Cell Distribution Width 13.3 % (11.0-16.0); White Blood Count 9.7 X10*3/uL (4.8-10.8)
--- NOTE | 2024-09-19 09:07 | ED_ITS ---
HPI - General Adult General Chief complaint: Wound/Laceration Stated complaint: L foot infection Time Seen by Provider: 09/19/24 09:01 Source: patient Mode of arrival: ambulatory Limitations: no limitations History of Present Illness ED Provider: Veronica Hughes PA-C HPI narrative: Patient is a 64 year old assigned male at with a history of charcot foot and HTN presenting to the emergency department today with a worsening left foot infection. Patient states that he follows with podiatry for left foot issues and a left foot wound that has been struggling to heal. Patient states that 2 days ago his left foot became much more swollen, warm, and painful. Patient states that he saw his maintenance and custodian supervisor who started him on PO Augmentin and the foot has not gotten better. Patient states that he does NOT have a history of DM. Patient states that he has had to have IV infusions for antibiotics before. Patient denies any dizziness, lightheadedness, abdominal pain, nausea, vomiting, fever, chills, blurry vision, double vision, loss of vision, chest pain, difficulty breathing, shortness of breath, back pain, night sweats, pain with urination, increased urinary frequency, increased urinary urgency, blood in his urine or stool, syncope or a near syncopal episode, recent trauma or falls, bowel incontinence, bladder incontinence, or any other complaints at this time. Onset (ago): day(s) (2) Location: left and lower extremity Relieving factors: none Exacerbating factors: none Associated symptoms: denies other symptoms Treatments prior to arrival: other (Augmentin) Related Data Home Medications ?Medication ?Instructions ?Recorded ?Confirmed losartan 100 1 tab PO DAILY 10/28/23 10/28/23 mg-hydrochlorothiazide 25 mg tablet Allergies Allergy/AdvReac Type Severity Reaction Status Date / Time Sulfa (Sulfonamide Allergy Mild Rash Verified 09/19/24 08:14 Antibiotics) sulfamethoxazole Allergy Mild Rash Verified 09/19/24 08:14 [From BACTRIM] trimethoprim [From BACTRIM] Allergy Mild Rash Verified 09/19/24 08:14 Review of Systems 2 Constitutional: Constitutional: Reports no additional constitutional complaints, Denies chills, Denies fever(s) and Denies night sweats Eyes: Eyes: Reports no additional eye complaints, Denies blurry vision, Denies change in vision, Denies diplopia, Denies eye discharge, Denies loss of vision and Denies eye pain ENT: Denies dizziness Cardiovascular: Cardiovascular: Reports no additional cardiovascular complaints, Denies chest pain, Denies lightheadedness, Denies Loss of Consciousness and Denies dyspnea Respiratory: Respiratory: Reports no additional respiratory complaints and Denies dyspnea Gastrointestinal: Gastrointestinal: Reports no additional gastrointestinal complaints, Denies abdominal pain, Denies melena, Denies hematochezia, Denies change in bowel habits and Denies change in stool character Genitourinary: Genitourinary: Reports no additional male genitourinary complaints, Denies hematuria, Denies oliguria, Denies difficulty urinating, Denies dysuria, Denies urinary frequency, Denies urinary hesitancy, Denies urinary incontinence and Denies urinary urgency Musculoskeletal: Musculoskeletal: Reports no additional musculoskeletal complaints, Denies numbness and Denies tingling Integumentary/Breasts: Comments: chronic left foot wound Neurologic: Denies dizziness, Denies loss of vision, Denies numbness and Denies tingling Psychiatric: Psychiatric: Reports no additional psychiatric complaints Endocrine: Endocrine: Reports no additional endocrine complaints Hematologic/Lymphatic: Hematologic/Lymphatic: Reports no additional hematologic/lymphatic complaints Allergic/Immunologic: Allergic/Immunologic: Reports no additional allergic/immunologic complaints [facility] Past Medical History Attestation statement: The following information was validated with the patient. Source: old records reviewed and nursing notes reviewed Medical History SALVATORE (obstructive sleep apnea) Chronic cellulitis Amputation toe Neuropathy Charcot's joint of foot Hypertension Surgical History History of surgery on extremity H/O foot surgery Social History Social History Alcohol intake: former Patient Tobacco Use Status: Never used Tobacco Smoked in Last 30 Days: No Use of substances other than those prescribed or required for medical reasons: No Advance Directives: No Advance Directives Information Provided: Yes Do you have a plan to hurt others: No Plan Physical Exam ED Vital Signs: Vital Signs - 24 hr 09/19/24 08:11 Temperature 97.4 F Pulse Rate 75 Respiratory Rate 20 Blood Pressure 141/74 H Pulse Oximetry 98 Oxygen Delivery Method Room Air BMI result Body Mass Index 32.9 Const General: cooperative, no acute distress, alert and awake Nutritional Appearance: well nourished Orientation/consciousness: patient oriented x3 Limitations: no limitations HENMT Head: Yes normal to inspection and Yes atraumatic Ears: hearing grossly normal bilaterally and external ears normal General nose exam: Normal external nose present, no nasal discharge noted and no epistaxis Face and sinus: Yes normal facial exam, No abrasion and No laceration Mouth: Normal oral and palatal mucosa present, no drooling and no muffled voice Eyes General: appearance normal, both eyes and all related structures Periorbital: periorbital findings normal Eyelids: Yes eyelids normal Conjunctivae: conjunctivae normal Pupils: Equal, round and reactive pupils present EOM: EOMs intact bilaterally Neck Neck: Yes normal visual inspection, Yes full ROM and Yes no lymphadenopathy Chest Chest palpation & inspection: normal inspection of the chest Resp Effort & Inspection: normal respiratory effort and able to speak in complete sentences GI Inspection: Yes normal to inspection Neuro General: patient oriented x3 and moves all extremities Cranial nerves: Yes Equal, round and reactive pupils present Cognition (Neuro): normal cognition Extrem Other: General: Yes full ROM and Yes capillary refill normal Psych Appearance: grossly normal Mental Status: mental status grossly normal Affect: normal affect Attitude: cooperative Thought process: Normal thought process present Thought content: Normal thought content present Insight: Good insight present (Psych) Medications Administered Generic Name Dose Route Start Last Admin Trade Name Freq PRN Reason Stop Dose Admin Enoxaparin Sodium 40 mg 09/19/24 12:00 09/19/24 12:06 Enoxaparin Sodium 40 Mg/0.4 Ml Syringe SUBCUT Not Given Q24H EMILIE Discontinued Medications Generic Name Dose Route Start Last Admin Trade Name Freq PRN Reason Stop Dose Admin Piperacillin Sod/Tazobactam 50 mls @ 100 mls/hr 09/19/24 09:25 09/19/24 10:46 Sod 3.375 gm/ Sodium Chloride IV 09/19/24 09:54 Infused ONCE ONE Infusion Vancomycin HCl 2,000 mg in 500 mls @ 250 mls/hr 09/19/24 10:00 09/19/24 10:59 Vancomycin/Ns IV 09/19/24 11:59 250 mls/hr ONCE ONE Administration Medical Decision Making Medical Decision Making MDM Narrative: Patient is a 64 year old assigned male at with a history of charcot foot and HTN presenting to the emergency department today with a worsening left foot infection. Patient's physical exam was as noted in the physical exam portion of this note. Patient's blood work showed an ESR of 80, CRP of 20.24, and lactic of 2.3 but were otherwise unremarkable. Patient's left foot x-ray showed no evidence of osteomyelitis but did show evidence consistent with cellulitis. Patient's clinical presentation is not consistent with sepsis (@1100). Patient was given IV Vacn + Zosyn. I spoke to the hospitalist team who agreed to admission. I explained my physical exam findings as well as all test results to the patient. I answered all questions asked by the patient. Patient verbalized agreement and understanding with this treatment plan and admission for left foot cellulitis. . Differential Diagnosis Differential Diagnoses: The differential diagnosis associated with the presentation includes Cellulitis Admission/Observation Consideration of admission/observation: Escalation of care including admission/observation considered Patient admitted as noted in the MDM Rationale portion of this note. Consult Healthcare Provider Management of the patient was discussed with: Hospitalist (Agreed to admission as noted in the MDM Rationale portion of this note.) Lab Data [facility] Lab Attestation statement: I reviewed the patient's lab results. My interpretation of these results are in the MDM Rationale portion of this note. 09/19/24 08:43 09/19/24 08:43 Labs: Lab Results 09/19/24 09/19/24 Range/Units 08:43 09:53 WBC 9.7 (4.8-10.8) X10*3/uL RBC 4.42 L (4.60-5.80) X10*6/uL Hgb 13.4 L (14.0-18.0) g/dl Hct 39.5 L (42.0-52.0) % MCV 89.4 (80.0-98.0) fL MCH 30.3 (27.0-33.0) pg MCHC 33.9 (31.0-36.0) g/dl RDW 13.3 (11.0-16.0) % Plt Count 272 D (160-400) X10*3/uL MPV 8.5 L (9.4-12.4) fL Immature Gran % (Auto) 0.8 H (0.0-0.4) % Neut % (Auto) 73.0 (45-73) % Lymph % (Auto) 9.5 L (20-40) % [place] % (Auto) 11.8 H (2-11) % Eos % (Auto) 4.5 H (0-4) % Baso % (Auto) 0.4 (0-2) % Lymph # (Auto) 0.9 L (1.2-4.9) X10*3/uL [place] # (Auto) 1.1 (0.1-1.2) X10*3/uL Eos # (Auto) 0.4 (0.0-0.4) X10*3/uL Baso # (Auto) 0.0 (0.0-0.2) X10*3/uL Abs Immat Gran (auto) 0.08 H (0.00-0.03) X10*3/uL Absolute Neuts (auto) 7.1 (2.0-8.3) x10*3/uL Absolute Nucleated RBC 0.000 (0.0-0.012) X10*3/uL Nucleated RBC % (auto) 0.0 (0.0-0.2) /100WBC ESR 80 H (0-15) MM/HR Sodium 137 (135-145) mmol/L Potassium 4.1 (3.3-5.1) mmol/L Chloride 106 (96-108) mmol/L Carbon Dioxide 23 (22-29) mmol/L Anion Gap 12 (12-20) BUN 14 (9-16) mg/dL Creatinine 0.89 (0.5-1.4) mg/dL Estim Creat Clear Calc 104.3 Estimated GFR > 60 Random Glucose 118 H (60-115) mg/dL Lactic Acid 2.3 H* (0.5-2.0) mmol/L Calcium 9.2 D (8.4-10.2) mg/dL Total Bilirubin 1.2 H (0.0-1.0) mg/dL Direct Bilirubin 0.5 (0.0-0.5) mg/dL AST 30 (5-37) U/L ALT 25 (0-40) U/L Alkaline Phosphatase 66 (39-117) U/L C-Reactive Protein 20.24 H (< or = 0.50) mg/dL Total Protein 6.7 (6.5-8.0) g/dL Albumin 3.3 L (3.5-5.0) g/dL Lipase 32 (8-78) U/L Independent Interpretation I performed an independent interpretation of an: Plain X-Ray Interpretation: My interpretation is in agreement with the radiologist's impression of this imaging study. L CLINICAL HISTORY: wound 3 view left foot Comparison: None Findings: No fractures or dislocations. No periosteal or cortical reactive changes. Diffuse soft tissue swelling in the great toe. Correlate for cellulitis. No significant loss of joint space, osteophytes, or erosions. No ankle effusion. No radiopaque foreign body. IMPRESSION: 1. Soft tissue swelling in the great toe, possible cellulitis. Correlate clinically. This document has been electronically signed by: Gino Francis MD on 09/19/2024 08:40:59 Dictated By: Gino Francis MD Signed By: Electronically signed by Gino Francis MD 09/19/24 0842 Radiology Impression Discussion of test interpretation with radiology: I have reviewed the radiologist's reading. Critical Care Time Critical Care Time Critical Care Time: Yes Total Critical Care Time: 37 Attestation: I spent 37 minutes of Critical Care Time with this patient. This does not include time spent on separately reported billable procedures. Discharge Plan Discharge Clinical Impression: Cellulitis of left foot Patient Disposition: Admitted As Inpatient
[2024-09-19 09:15] LABS: Alanine Aminotransferase 25 U/L (0-40); Albumin Level 3.3 g/dL (3.5-5.0); Alkaline Phosphatase 66 U/L (39-117); Anion Gap 12 (12-20); Aspartate Amino Transferase 30 U/L (5-37); Bilirubin Direct 0.5 mg/dL (0.0-0.5); Bilirubin Total 1.2 mg/dL (0.0-1.0); Blood Urea Nitrogen 14 mg/dL (9-16); Calcium 9.2 mg/dL (8.4-10.2); Carbon Dioxide 23 mmol/L (22-29); Chloride 106 mmol/L (96-108); Creatinine Clr Calc Pharmacy 104.3; Estimated Glomerular Filt Rate > 60; Glucose Random 118 mg/dL (60-115); Lipase 32 U/L (8-78); Potassium 4.1 mmol/L (3.3-5.1); Sodium 137 mmol/L (135-145); Total Protein 6.7 g/dL (6.5-8.0)
[2024-09-19] MEDS: Piperacillin Sodium/Tazobactam 3.375 GM in 0.9 % Sodium Chloride 50 ML IV ×3 (10:13→23:45)
[2024-09-19 10:18] LABS: C Reactive Protein 20.24 mg/dL (< or = 0.50)
[2024-09-19 10:42] LABS: Lactic Acid 2.3 mmol/L (0.5-2.0)
[2024-09-19 10:49] LABS: Erythrocyte Sedimentation Rate 80 MM/HR (0-15)
[2024-09-19] MEDS: vancomycin/NS 2,000 MG/500 ML PLAST..BAG 250 MG IV (10:59)
--- NOTE | 2024-09-19 11:32 | P.HPHOSP_ITS ---
History of Present Illness Date of Service: 09/19/24 Attending physician on admission: Kingsley Degroot Chief Complaint: left foot infection This is a 64-year-old male with history of hypertension who presents to the emergency department with worsening left foot infection. He has a history of left great toe partial amputation in 2019. Over the summer he developed a blister and has been working with his permit technician Dr. Stapleton with good improvement of that wound. Several days ago he developed a blister in between his great toe and the 2nd toe associated with swelling and erythema. He was started on oral Augmentin but was told to come to the emergency department if he did not notice any changes. He reports overnight the swelling significantly increased. He denies any associated fever or chills. In the emergency department he was noted to have significant swelling of his left foot and leg, x-ray of the foot did not reveal any bony involvement. Inflammatory markers were significantly elevated although patient was afebrile, with no leukocytosis. He was started on broad-spectrum antibiotics and the decision was made to admit him to the hospital for further management. Review of Systems 2 Review of Systems: Yes all other systems are reviewed and are negative Constitutional: Constitutional: Denies chills and Denies fever(s) Cardiovascular: Cardiovascular: Denies chest pain and Denies palpitations Respiratory: Respiratory: Denies cough Gastrointestinal: Gastrointestinal: Denies abdominal pain, Denies nausea and Denies vomiting Endocrine: Endocrine: Denies palpitations [facility] Medical History SALVATORE (obstructive sleep apnea) Chronic cellulitis Amputation toe Neuropathy Charcot's joint of foot Hypertension Surgical History History of surgery on extremity H/O foot surgery Social History Alcohol intake: former Patient Tobacco Use Status: Never used Tobacco Smoked in Last 30 Days: No Use of substances other than those prescribed or required for medical reasons: No Advance Directives: No Advance Directives Information Provided: Yes Do you have a plan to hurt others: No Plan Meds Allergies Allergy/AdvReac Type Severity Reaction Status Date / Time Sulfa (Sulfonamide Allergy Mild Rash Verified 09/19/24 08:14 Antibiotics) sulfamethoxazole Allergy Mild Rash Verified 09/19/24 08:14 [From BACTRIM] trimethoprim [From BACTRIM] Allergy Mild Rash Verified 09/19/24 08:14 Active Medications: Current Medications Acetaminophen (Acetaminophen 325 Mg Tablet) 650 mg PO Q6H PRN PRN Reason: Pain, Mild 1-3,fever,headache Calcium Carbonate (Calcium Carbonate 750 Mg Tab.Chew) 750 mg PO Q4H PRN PRN Reason: Heartburn Enoxaparin Sodium (Enoxaparin Sodium 40 Mg/0.4 Ml Syringe) 40 mg SUBCUT Q24H EMILIE Vancomycin HCl (Vancomycin/Ns) 2,000 mg in 500 mls @ 250 mls/hr IV ONCE ONE Stop: 09/19/24 11:59 Last Admin: 09/19/24 10:59 Dose: 250 mls/hr Piperacillin Sod/Tazobactam (Sod 3.375 gm/ Sodium Chloride) 50 mls @ 100 mls/hr IV Q6H EMILIE Melatonin (Melatonin 3 Mg Tablet) 6 mg PO BEDTIME PRN PRN Reason: Insomnia Pharmacy Consult (Consult Rx Vancomycin Dosing) 1 each MISCELLANE DAILY PRN PRN Reason: Consult order Polyethylene Glycol (Polyethylene Glycol 3350 17 Gm Powd.Pack) 17 gm PO DAILY PRN PRN Reason: Constipation Sodium Chloride (0.9 % Sodium Chloride Flush 3 Ml Syringe) 3 ml IVFLUSH QSHIFT [facility] Home Medications ?Medication ?Instructions ?Recorded ?Confirmed ?Last Taken ?Type No Known Home Meds 09/19/24 09/19/24 Unknown History Physical Exam 2 Vital Signs and Narrative: Vital Signs: Last Vital Signs Temp 97.4 F 09/19/24 08:11 Pulse 75 09/19/24 08:11 Resp 20 09/19/24 08:11 BP 141/74 H 09/19/24 08:11 Pulse Ox 98 09/19/24 08:11 O2 Del Method Room Air 09/19/24 08:11 BMI result Body Mass Index 32.9 Const: General: cooperative, comfortable, no acute distress, alert and awake Nutritional Appearance: overweight Orientation/consciousness: patient oriented x3 Resp: Effort & Inspection: normal respiratory effort, able to speak in complete sentences, no respiratory distress and no use of accessory muscles Cardio: Rate: regular rate GI: Inspection: No distended Palpation (GI): Soft to palpation and nontender Skin: Other: LLE edema; venous stasis changes; great toe/foot swelling with erythema, open wound between great toe and second toe; see ED notes for pictures Neuro: General: patient oriented x3, moves all extremities and CN's II-XI intact bilaterally Extrem: Other: LLE edema Psych: Other: appropriate affect Results Labs 09/19/24 08:43 09/19/24 08:43 Labs: Laboratory Results - last 24 hr 09/19/24 09/19/24 08:43 09:53 MCV 89.4 MCH 30.3 MCHC 33.9 RDW 13.3 Plt Count 272 D MPV 8.5 L Immature Gran % (Auto) 0.8 H Neut % (Auto) 73.0 Lymph % (Auto) 9.5 L [place] % (Auto) 11.8 H Eos % (Auto) 4.5 H Baso % (Auto) 0.4 Lymph # (Auto) 0.9 L [place] # (Auto) 1.1 Eos # (Auto) 0.4 Baso # (Auto) 0.0 Abs Immat Gran (auto) 0.08 H Absolute Neuts (auto) 7.1 Absolute Nucleated RBC 0.000 Nucleated RBC % (auto) 0.0 ESR 80 H Anion Gap 12 Estim Creat Clear Calc 104.3 Estimated GFR > 60 Random Glucose 118 H Lactic Acid 2.3 H* Calcium 9.2 D Total Bilirubin 1.2 H Direct Bilirubin 0.5 AST 30 ALT 25 Alkaline Phosphatase 66 C-Reactive Protein 20.24 H Total Protein 6.7 Albumin 3.3 L Lipase 32 Assessment and Plan (1) Cellulitis of left foot: Status: Acute Plan This is a 64-year-old male with a history of hypertension, Charcot foot who presents to the emergency department with worsening left foot infection Left foot cellulitis with concern for deeper infection ?due to PVD X-ray negative for bony involvement but inflammatory markers significantly elevated no white count, no fever, does not meet SIRS criteria arterial US to eval blood flow as inflammatory markers are high will obtain MRI to assess for bone involvement We will continue broad-spectrum antibiotics for now with IV vancomycin and Zosyn surgical consultation SALVATORE CPAP qhs Does not take any medications at baseline. dvt ppx - lovenox Will likely need 2 midnight stays in the hospital for management of left foot infection requiring IV antibiotics, further imaging and specialist evaluation Quality Stroke Does the patient have a stroke diagnosis?: No VTE Prior VTE?: No VTE Risk Level:: Medical - moderate - high VTE Device Contraindication: Treatment Not Indicated VTE Drug Contraindication: N/A - Med Ordered
--- NOTE | 2024-09-19 11:39 | PHA.PROG ---
Admission Date/Time: September 19, 2024 11:26 Indication: skin + skin structure Weight in k kg Adjusted body weight in Kg: [place] body weight in Kg: Obesity Dosing Indication % IBW: BMI 32.9 Serum Creatinine - Last 168 Hours 09/19/24 08:43 Creatinine 0.89 Estimated CrCl and GFR - Last 168 Hours 09/19/24 08:43 Estim Creat Clear Calc 104.3 Estimated GFR > 60 Vancomycin Loading Dose: 2000 mg X1 Current Vancomycin Dosing Regimen: 750 mg Q8H Vancomycin Monitoring using AUC goal of 400 - 600 range with trough as surrogate marker: 472 Date and Time for next Vancomycin Level to be drawn: 09/10 @1000 Pharmacist Comments on Vancomycin Plan: Patient's renal functions appears stable and per pictures, infection looks severe. Predicted trough with Q8 dosin.5. Targeting higher trough to get patient into range quicker and get him therapeutic. Then, to possibly change to Q12H dosing depending on how renal function continues and trough on 09/20. Vancomycin dosing will take advantage of [employer] as a clinical decision support tool that uses Bayesian modeling to calculate individual patient's pharmacokinetic parameters and forecast the patient's drug concentration time course with the target goal AUC 24 range of 400 - 600 mg/L/hr.
[2024-09-19 11:58] LABS: Reflex Lactate? Lactic Acid Added
--- NOTE | 2024-09-19 12:31 | PC.NURSE ---
report given to Marimar in overflow, MRI screening form completed with patient and faxed to MRI
[2024-09-19 12:50] LABS: ~Lactic Acid-LAB USE ONLY 1.7 mmol/L (0.5-2.0)
--- NOTE | 2024-09-19 15:13 | PHA.MEDREC ---
Addendum entered by Chela Earl RPh 09/19/24 16:08: reviewed by [facility]. Original Note: Pharmacy Consult ? Medication Reconciliation Pharmacy has completed the medication reconciliation. Pt reports no meds. States no longer taking Hyzaar.
[2024-09-19 16:02] LABS: Estimated Average Glucose 103 mg/dL; Hemoglobin A1c % 5.2 % (<6.0); Total Hemoglobin (HGBA1C) 3462.6211 umol/L
[2024-09-19 16:18] VITALS: BP 146/77; PULSE 72; RESP 16; TEMP 36.9; O2SAT 98
[2024-09-19] MEDS: 0.9 % Sodium Chloride Flush 3 ML SYRINGE IVFLUSH ×2 (17:16→23:48)
[2024-09-19 17:58] VITALS: BP 148/78; PULSE 63; RESP 16; TEMP 36.7; O2SAT 97; BMI 31.8
[2024-09-19 19:20] VITALS: BP 146/69; PULSE 62; RESP 15; TEMP 36.3; O2SAT 96
[2024-09-19] MEDS: vancomycin HCL 750 MG in 0.9 % Sodium Chloride 250 ML 265 MG IV (20:11)
[2024-09-20] MEDS: vancomycin HCL 750 MG in 0.9 % Sodium Chloride 250 ML 265 MG IV (03:42)
[2024-09-20 03:47] VITALS: BP 123/65; PULSE 57; RESP 18; TEMP 36; O2SAT 98
[2024-09-20] MEDS: Piperacillin Sodium/Tazobactam 3.375 GM in 0.9 % Sodium Chloride 50 ML IV ×4 (05:44→23:49)
[2024-09-20 06:29] LABS: Hematocrit 33.7 % (42.0-52.0); Hemoglobin 11.5 g/dl (14.0-18.0); Mean Corpuscular HGB Conc 34.1 g/dl (31.0-36.0); Mean Corpuscular Hemoglobin 30.7 pg (27.0-33.0); Mean Corpuscular Volume 89.9 fL (80.0-98.0); Mean Platelet Volume 8.7 fL (9.4-12.4); Platelet Count 253 X10*3/uL (160-400); Red Blood Count 3.75 X10*6/uL (4.60-5.80); Red Cell Distribution Width 13.4 % (11.0-16.0); White Blood Count 8.3 X10*3/uL (4.8-10.8)
[2024-09-20 06:42] LABS: Anion Gap 13 (12-20); Blood Urea Nitrogen 14 mg/dL (9-16); Calcium 8.5 mg/dL (8.4-10.2); Carbon Dioxide 21 mmol/L (22-29); Chloride 110 mmol/L (96-108); Creatinine Clr Calc Pharmacy 111.3; Estimated Glomerular Filt Rate > 60; Glucose Random 104 mg/dL (60-115); Potassium 3.8 mmol/L (3.3-5.1); Sodium 140 mmol/L (135-145)
[2024-09-20 07:13] VITALS: BP 138/77; PULSE 63; RESP 16; TEMP 36.6; O2SAT 96
[2024-09-20] MEDS: 0.9 % Sodium Chloride Flush 3 ML SYRINGE IVFLUSH ×3 (07:36→19:39)
[2024-09-20 10:44] LABS: Vancomycin Random 12.6 mcg/mL (15-20)
--- NOTE | 2024-09-20 10:52 | HE.PHANOTE ---
RE VANCO DOSING RENAL FUNCTION STABLE. TROUGH TODAY 12.6 ALTHOUGH THIS IS SLIGHTLY HIGHER THAN INSIGHT PREDICTS (INSIGHT ESTIMATE IS 11.9). WILL INCREASE DOSE TO 1250 Q12 WITH EXPECTED AUC 455 AND TROUGH 14.5. WILL RECHECK LEVELS 09/21 @1000.
--- NOTE | 2024-09-20 11:34 | P.CONGS_ITS ---
History of Present Illness Consult details Consult date: 09/20/24 Narrative: Patient was a pleasant 64-year-old male who is being followed as an outpatient by Podiatry regarding a Charcot joint. He has had prior left foot surgeries and amputations. He had 2 wounds on his foot 1 involving the space between the 1st and 2nd toes as well as the plantar aspect wound. The web wounds apparently was granulating well but over the last few days developed redness and warmth. Patient presented here for further evaluation. Diagnosis cellulitis was made. Surgical consult for left foot wound/cellulitis. Chart was reviewed and patient evaluated PMFSH Past Medical History Medical History SALVATORE (obstructive sleep apnea) Chronic cellulitis Amputation toe Neuropathy Charcot's joint of foot Hypertension Surgical History Surgical History History of surgery on extremity H/O foot surgery Social History Social History Household Members: Children Household Members Other:: 4 Housing: House Do you presently have visiting nurse or other home services: No Alcohol intake: former Patient Tobacco Use Status: Never used Tobacco Smoked in Last 30 Days: No Use of substances other than those prescribed or required for medical reasons: No Currently Displaying Signs/Symptoms of Drug Intoxication Withdrawal: No Any prior treatment program specific to substance use: No Have you been hit, kicked, punched, or otherwise hurt by someone within the past year? If so, by whom?: No Do you feel safe in your current relationship?: Yes Is there a partner from a previous relationship who is making you feel unsafe now?: No Are you made to feel afraid or neglected: No Advance Directives: No Advance Directives Information Provided: Yes Do you have a plan to hurt others: No Plan Recently lost weight without trying: No Eating poorly because of decreased appetite: No Nutrition Risks: No Nutritional Risk Poor oral hygiene: No Meds Allergies Allergy/AdvReac Type Severity Reaction Status Date / Time Sulfa (Sulfonamide Allergy Mild Rash Verified 09/19/24 08:14 Antibiotics) sulfamethoxazole Allergy Mild Rash Verified 09/19/24 08:14 [From BACTRIM] trimethoprim [From BACTRIM] Allergy Mild Rash Verified 09/19/24 08:14 Active Medications: Current Medications Acetaminophen (Acetaminophen 325 Mg Tablet) 650 mg PO Q6H PRN PRN Reason: Pain, Mild 1-3,fever,headache Calcium Carbonate (Calcium Carbonate 750 Mg Tab.Chew) 750 mg PO Q4H PRN PRN Reason: Heartburn Enoxaparin Sodium (Enoxaparin Sodium 40 Mg/0.4 Ml Syringe) 40 mg SUBCUT Q24H [facility] Last Admin: 09/19/24 12:06 Dose: Not Given Piperacillin Sod/Tazobactam (Sod 3.375 gm/ Sodium Chloride) 50 mls @ 100 mls/hr IV Q6H [facility] Last Infusion: 09/20/24 07:05 Dose: Infused Vancomycin HCl 1,250 mg/ (Sodium Chloride) 250 mls @ 166.667 mls/hr IV Q12H [facility] Melatonin (Melatonin 3 Mg Tablet) 6 mg PO BEDTIME PRN PRN Reason: Insomnia Pharmacy Consult (Consult Rx Vancomycin Dosing) 1 each MISCELLANE DAILY PRN PRN Reason: Consult order Polyethylene Glycol (Polyethylene Glycol 3350 17 Gm Powd.Pack) 17 gm PO DAILY PRN PRN Reason: Constipation Sodium Chloride (0.9 % Sodium Chloride Flush 3 Ml Syringe) 3 ml IVFLUSH QSHIFT [facility] Last Admin: 09/20/24 07:36 Dose: 3 ml Home Medications ?Medication ?Instructions ?Recorded ?Confirmed ?Last Taken ?Type No Known Home Meds 09/19/24 09/19/24 Unknown History Physical Exam 2 Vital Signs: Vital Signs: Last Vital Signs Temp 97.9 F 09/20/24 07:13 Pulse 63 09/20/24 07:13 Resp 16 09/20/24 07:13 BP 138/77 09/20/24 07:13 Pulse Ox 96 09/20/24 07:13 O2 Del Method Room Air 09/20/24 07:13 BMI result Body Mass Index 31.8 Extrem: Other: At present, the left foot web space area is granulating well. See my 1st time seeing wound but no appreciable cellulitis or abscess demonstrated. Eschar and plantar aspect of the foot healing uneventfully Results Labs 09/20/24 05:42 09/20/24 05:42 Labs: Abnormal lab results 09/20/24 09/20/24 Range/Units 05:42 10:19 RBC 3.75 L (4.60-5.80) X10*6/uL Hgb 11.5 L (14.0-18.0) g/dl Hct 33.7 L (42.0-52.0) % MPV 8.7 L (9.4-12.4) fL Chloride 110 H (96-108) mmol/L Carbon Dioxide 21 L (22-29) mmol/L Random Vancomycin 12.6 L (15-20) mcg/mL Short CBC 09/20/24 Range/Units 05:42 WBC 8.3 (4.8-10.8) X10*3/uL Hgb 11.5 L (14.0-18.0) g/dl Hct 33.7 L (42.0-52.0) % Plt Count 253 (160-400) X10*3/uL BMP 09/20/24 05:42 Sodium 140 Potassium 3.8 Chloride 110 H Carbon Dioxide 21 L BUN 14 Creatinine 0.82 Calcium 8.5 D All other labs normal. Assessment and Plan (1) Cellulitis of left foot: Status: Acute At present, no acute surgical issues. Continue IV antibiotics, local wound care, elevation of extremity. Patient was stripped follow-up with the analog ic design engineer upon discharge. Procedures Date of Service Date of Service: 09/20/24
[2024-09-20] MEDS: gadobutroL 10 ML VIAL IVPUSH (11:57)
--- NOTE | 2024-09-20 12:33 | HO.PM.IMPN ---
Subjective Subjective Date of Service: 09/20/24 Interval History: Seen and examined this morning Follow-up for left foot infection No overnight events No significant pain due to underlying neuropathy Review of Systems Review of Systems: Yes all other systems are reviewed and are negative Constitutional Constitutional: Denies chills and Denies fever(s) Cardiovascular Cardiovascular: Denies chest pain, Denies palpitations and Denies dyspnea Respiratory Respiratory: Denies cough and Denies dyspnea Endocrine Endocrine: Denies palpitations Physical Exam Vital Signs: Vital Signs: Last Vital Signs Temp 97.9 F 09/20/24 07:13 Pulse 63 09/20/24 07:13 Resp 16 09/20/24 07:13 BP 138/77 09/20/24 07:13 Pulse Ox 96 09/20/24 07:13 O2 Del Method Room Air 09/20/24 07:13 BMI result Body Mass Index 31.8 Const: General: cooperative, comfortable, no acute distress, alert and awake Nutritional Appearance: overweight Orientation/consciousness: patient oriented x3 Resp: Effort & Inspection: normal respiratory effort, able to speak in complete sentences, no respiratory distress and no use of accessory muscles Cardio: Rate: regular rate GI: Inspection: No distended Palpation (GI): Soft to palpation and nontender Skin: Other: LLE edema; venous stasis changes; great toe/foot swelling with erythema, open wound between great toe and second toe; see ED notes for pictures Neuro: General: patient oriented x3, moves all extremities and CN's II-XI intact bilaterally Extrem: Other: LLE edema Psych: Other: appropriate affect Objective Data Active Medications Acetaminophen (Acetaminophen 325 Mg Tablet) 650 mg PO Q6H PRN PRN Reason: Pain, Mild 1-3,fever,headache Calcium Carbonate (Calcium Carbonate 750 Mg Tab.Chew) 750 mg PO Q4H PRN PRN Reason: Heartburn Enoxaparin Sodium (Enoxaparin Sodium 40 Mg/0.4 Ml Syringe) 40 mg SUBCUT Q24H [facility] Last Admin: 09/19/24 12:06 Dose: Not Given Documented By: SHAZIA Non-Admin Reason: Patient Refused Piperacillin Sod/Tazobactam (Sod 3.375 gm/ Sodium Chloride) 50 mls @ 100 mls/hr IV Q6H [facility] Last Infusion: 09/20/24 07:05 Dose: Infused Documented By: LILY Vancomycin HCl 1,250 mg/ (Sodium Chloride) 250 mls @ 166.667 mls/hr IV Q12H [facility] Melatonin (Melatonin 3 Mg Tablet) 6 mg PO BEDTIME PRN PRN Reason: Insomnia Pharmacy Consult (Consult Rx Vancomycin Dosing) 1 each MISCELLANE DAILY PRN PRN Reason: Consult order Polyethylene Glycol (Polyethylene Glycol 3350 17 Gm Powd.Pack) 17 gm PO DAILY PRN PRN Reason: Constipation Sodium Chloride (0.9 % Sodium Chloride Flush 3 Ml Syringe) 3 ml IVFLUSH QSHIFT [facility] Last Admin: 09/20/24 07:36 Dose: 3 ml Documented By: JENNIFER Labs 09/20/24 05:42 09/20/24 05:42 Labs: Laboratory Results - last 24 hr 09/19/24 09/19/24 09/20/24 08:43 12:21 05:42 MCV 89.9 MCH 30.7 MCHC 34.1 RDW 13.4 Plt Count 253 MPV 8.7 L Absolute Nucleated RBC 0.000 Nucleated RBC % (auto) 0.0 Anion Gap 13 Estim Creat Clear Calc 111.3 Estimated GFR > 60 Random Glucose 104 Estimat Average Glucose 103 Hemoglobin A1c % 5.2 Lactic Acid F/U @ 2Hr 1.7 Calcium 8.5 D Random Vancomycin 09/20/24 10:19 MCV MCH MCHC RDW Plt Count MPV Absolute Nucleated RBC Nucleated RBC % (auto) Anion Gap Estim Creat Clear Calc Estimated GFR Random Glucose Estimat Average Glucose Hemoglobin A1c % Lactic Acid F/U @ 2Hr Calcium Random Vancomycin 12.6 L Microbiology Microbiology Results: Microbiology 09/19/24 09:57 Blood Culture - Preliminary Blood - Venous No growth after 24 hours. 09/19/24 09:53 Blood Culture - Preliminary Blood - Venous No growth after 24 hours. Assessment and Plan (1) Osteomyelitis: Status: Acute Plan This is a 64-year-old male with a history of hypertension, Charcot foot who presents to the emergency department with worsening left foot infection Left foot cellulitis with osteomyelitis and abscess X-ray negative for bony involvement but inflammatory markers significantly elevated MRI showing osteomyelitis of stump of proximal phalanx of great toe and possible osteo of 1st metatarsal head and associated sesamoids; there are several small abscesses & suspected septic tenosynovitus No Sepsis continue broad-spectrum antibiotics with IV vancomycin and Zosyn, started 09/19 seen by general surgery - does not feel pt needs surgical intervention arterial US with some PVD - will consult vascular surgery acute lactic acidosis likely type 2 not due to sepsis as does not meet SIRS criteria SALVATORE CPAP qhs Does not take any medications at baseline. dvt ppx - lovenox Requires ongoing inpatient stay for management of left foot infection requiring IV antibiotics, further imaging and specialist evaluation Quality Stroke Does the patient have a stroke diagnosis?: No VTE Prior VTE?: No VTE Risk Level:: Medical - moderate - high VTE Device Contraindication: Treatment Not Indicated VTE Drug Contraindication: N/A - Med Ordered
[2024-09-20] MEDS: Enoxaparin Sodium 40 MG/0.4 ML SYRINGE SUBCUT (13:00)
[2024-09-20] MEDS: vancomycin HCL 1,250 MG in 0.9 % Sodium Chloride 250 ML 166.67 MG IV (13:32)
[2024-09-20 15:02] VITALS: BP 118/65; PULSE 66; RESP 18; TEMP 36.3; O2SAT 95
--- NOTE | 2024-09-20 16:13 | MHC.CM.PN ---
PT REPORTS HE LIVES WITH HIS AND TWO SONS HE IS INDEPENDENT WITH CARE HE HAS A CPAP FOR DME COPY OF HCP REQUESTED PCP: MORE SETHI IMM DELIVERED DCP: HOME NO SERVICES VIA SELF TRANSPORT
[2024-09-20 19:12] VITALS: BP 142/78; PULSE 62; RESP 16; TEMP 36.3; O2SAT 97
--- NOTE | 2024-09-20 23:52 | P.CNID_ITS ---
History of Present Illness Data of Consult Service Date: 09/20/24 Requesting physician: Consuelo Dalton Primary Care Provider: Jennifer Walter MD [facility] Reason for consult: left foot infection He presents with left foot large swelling and discomfort over last two weeks worse. He has seen his Engine Cowling Installer and was given Augmentin and not better after a week. He has neuropathy without diabetes diagnosis. He has ESR of 80 and is on Vancomycin and Zosyn. There is no bacteremia or positive cultures. He has OM stump proximal phalanx great toe and abscesses apparent with some possible OM first MT head. Review of Systems 2 Review of Systems: Yes all other systems are reviewed and are negative PMFSH Past Medical History Medical History SALVATORE (obstructive sleep apnea) Chronic cellulitis Amputation toe Neuropathy Charcot's joint of foot Hypertension Family History Family history: reviewed and not pertinent Surgical History Surgical History History of surgery on extremity H/O foot surgery Social History Social History Household Members: Children Household Members Other:: 4 Housing: House Do you presently have visiting nurse or other home services: No Alcohol intake: former Patient Tobacco Use Status: Never used Tobacco Smoked in Last 30 Days: No Use of substances other than those prescribed or required for medical reasons: No Currently Displaying Signs/Symptoms of Drug Intoxication Withdrawal: No Any prior treatment program specific to substance use: No Have you been hit, kicked, punched, or otherwise hurt by someone within the past year? If so, by whom?: No Do you feel safe in your current relationship?: Yes Is there a partner from a previous relationship who is making you feel unsafe now?: No Are you made to feel afraid or neglected: No Advance Directives: No Advance Directives Information Provided: Yes Do you have a plan to hurt others: No Plan Recently lost weight without trying: No Eating poorly because of decreased appetite: No Nutrition Risks: No Nutritional Risk Poor oral hygiene: No service: No Meds Allergies Allergy/AdvReac Type Severity Reaction Status Date / Time Sulfa (Sulfonamide Allergy Mild Rash Verified 09/19/24 08:14 Antibiotics) sulfamethoxazole Allergy Mild Rash Verified 09/19/24 08:14 [From BACTRIM] trimethoprim [From BACTRIM] Allergy Mild Rash Verified 09/19/24 08:14 Active Medications: Current Medications Acetaminophen (Acetaminophen 325 Mg Tablet) 650 mg PO Q6H PRN PRN Reason: Pain, Mild 1-3,fever,headache Calcium Carbonate (Calcium Carbonate 750 Mg Tab.Chew) 750 mg PO Q4H PRN PRN Reason: Heartburn Enoxaparin Sodium (Enoxaparin Sodium 40 Mg/0.4 Ml Syringe) 40 mg SUBCUT Q24H [facility] Last Admin: 09/20/24 13:00 Dose: 40 mg Piperacillin Sod/Tazobactam (Sod 3.375 gm/ Sodium Chloride) 50 mls @ 100 mls/hr IV Q6H [facility] Last Admin: 09/20/24 23:49 Dose: 100 mls/hr Vancomycin HCl 1,250 mg/ (Sodium Chloride) 250 mls @ 166.667 mls/hr IV Q12H [facility] Last Infusion: 09/20/24 15:16 Dose: Infused Melatonin (Melatonin 3 Mg Tablet) 6 mg PO BEDTIME PRN PRN Reason: Insomnia Pharmacy Consult (Consult Rx Vancomycin Dosing) 1 each MISCELLANE DAILY PRN PRN Reason: Consult order Polyethylene Glycol (Polyethylene Glycol 3350 17 Gm Powd.Pack) 17 gm PO DAILY PRN PRN Reason: Constipation Sodium Chloride (0.9 % Sodium Chloride Flush 3 Ml Syringe) 3 ml IVFLUSH QSHIFT [facility] Last Admin: 09/20/24 19:39 Dose: 3 ml Home Medications ?Medication ?Instructions ?Recorded ?Confirmed ?Last Taken ?Type No Known Home Meds 09/19/24 09/19/24 Unknown History Physical Exam 2 Vital Signs: Vital Signs: Last Vital Signs Temp 97.4 F 09/20/24 19:12 Pulse 62 09/20/24 19:12 Resp 16 09/20/24 19:12 BP 142/78 H 09/20/24 19:12 Pulse Ox 97 09/20/24 19:12 O2 Del Method Room Air 09/20/24 19:12 BMI result Body Mass Index 31.8 Extrem: Other: left great toe reddened and interior open skin giant size digit Results Labs 09/20/24 05:42 09/20/24 05:42 Labs: Short CBC 09/20/24 Range/Units 05:42 WBC 8.3 (4.8-10.8) X10*3/uL Hgb 11.5 L (14.0-18.0) g/dl Hct 33.7 L (42.0-52.0) % Plt Count 253 (160-400) X10*3/uL BMP 09/20/24 05:42 Sodium 140 Potassium 3.8 Chloride 110 H Carbon Dioxide 21 L BUN 14 Creatinine 0.82 Calcium 8.5 D Microbiology Microbiology Results: Microbiology 09/19/24 09:57 Blood - Venous Blood Culture - Preliminary No growth after 24 hours. 09/19/24 09:53 Blood - Venous Blood Culture - Preliminary No growth after 24 hours. Assessment and Plan (1) Osteomyelitis: Status: Acute (2) Cellulitis of left foot: Status: Acute Plan OM left great toe He has had prior foot infection. He has no organism identified. There are abscesses but none to drain per Surgery and Vascular suggested. Would have Vascular see him. Most likely six weeks IV Daptomycin and then possible po Doxycycline after.
--- NOTE | 2024-09-21 00:16 | PM.EVENT ---
Event Note Date of Service: 09/21/24 Event Note: lungs clear cor rrr Abd soft nontender skin clear neuro nonfocal Time Spent With Patient Time: Total time managing care of this patient today ____ minutes.
[2024-09-21] MEDS: vancomycin HCL 1,250 MG in 0.9 % Sodium Chloride 250 ML 166.67 MG IV ×2 (00:23→12:27)
[2024-09-21 03:14] VITALS: BP 112/71; PULSE 55; RESP 16; TEMP 36.1; O2SAT 97
[2024-09-21] MEDS: Piperacillin Sodium/Tazobactam 3.375 GM in 0.9 % Sodium Chloride 50 ML IV ×4 (06:12→23:36)
[2024-09-21 06:56] VITALS: BP 134/77; PULSE 60; RESP 16; TEMP 36.1; O2SAT 95
[2024-09-21 06:56] LABS: Hematocrit 34.9 % (42.0-52.0); Hemoglobin 11.3 g/dl (14.0-18.0); Mean Corpuscular HGB Conc 32.4 g/dl (31.0-36.0); Mean Corpuscular Hemoglobin 29.8 pg (27.0-33.0); Mean Corpuscular Volume 92.1 fL (80.0-98.0); Mean Platelet Volume 8.7 fL (9.4-12.4); Platelet Count 289 X10*3/uL (160-400); Red Blood Count 3.79 X10*6/uL (4.60-5.80); Red Cell Distribution Width 13.4 % (11.0-16.0); White Blood Count 6.4 X10*3/uL (4.8-10.8)
[2024-09-21 07:08] LABS: Anion Gap 9 (12-20); Blood Urea Nitrogen 14 mg/dL (9-16); Calcium 8.7 mg/dL (8.4-10.2); Carbon Dioxide 25 mmol/L (22-29); Chloride 112 mmol/L (96-108); Creatinine Clr Calc Pharmacy 107.4; Estimated Glomerular Filt Rate > 60; Glucose Random 120 mg/dL (60-115); Potassium 4.4 mmol/L (3.3-5.1); Sodium 142 mmol/L (135-145)
[2024-09-21] MEDS: 0.9 % Sodium Chloride Flush 3 ML SYRINGE IVFLUSH ×3 (09:07→23:35)
[2024-09-21 10:42] LABS: Vancomycin Random 13.5 mcg/mL (15-20)
--- NOTE | 2024-09-21 11:44 | HO.PM.IMPN ---
Subjective Subjective Date of Service: 09/21/24 Interval History: Seen and examined this morning Follow-up for left foot infection and osteomylitis (OM) No new issues, pain is controlled Physical Exam Vital Signs: Vital Signs: Last Vital Signs Temp 97 F 09/21/24 06:56 Pulse 60 09/21/24 06:56 Resp 16 09/21/24 06:56 BP 134/77 09/21/24 06:56 Pulse Ox 95 09/21/24 06:56 O2 Del Method Room Air 09/21/24 06:56 BMI result Body Mass Index 31.8 Const: General: cooperative, comfortable, no acute distress, alert and awake Nutritional Appearance: overweight Orientation/consciousness: patient oriented x3 Resp: Effort & Inspection: normal respiratory effort, able to speak in complete sentences, no respiratory distress and no use of accessory muscles Cardio: Rate: regular rate GI: Inspection: No distended Palpation (GI): Soft to palpation and nontender Skin: Other: LLE edema; venous stasis changes; great toe/foot swelling with erythema, open wound between great toe and second toe; see ED notes for pictures Neuro: General: patient oriented x3, moves all extremities and CN's II-XI intact bilaterally Extrem: Other: LLE edema Psych: Other: appropriate affect Objective Data Active Medications Acetaminophen (Acetaminophen 325 Mg Tablet) 650 mg PO Q6H PRN PRN Reason: Pain, Mild 1-3,fever,headache Calcium Carbonate (Calcium Carbonate 750 Mg Tab.Chew) 750 mg PO Q4H PRN PRN Reason: Heartburn Enoxaparin Sodium (Enoxaparin Sodium 40 Mg/0.4 Ml Syringe) 40 mg SUBCUT Q24H [facility] Last Admin: 09/20/24 13:00 Dose: 40 mg Documented By: JENNIFER Piperacillin Sod/Tazobactam (Sod 3.375 gm/ Sodium Chloride) 50 mls @ 100 mls/hr IV Q6H [facility] Last Infusion: 09/21/24 06:49 Dose: Infused Documented By: JOSELINE Vancomycin HCl 1,250 mg/ (Sodium Chloride) 250 mls @ 166.667 mls/hr IV Q12H [facility] Last Infusion: 09/21/24 01:56 Dose: Infused Documented By: JOSELINE Melatonin (Melatonin 3 Mg Tablet) 6 mg PO BEDTIME PRN PRN Reason: Insomnia Pharmacy Consult (Consult Rx Vancomycin Dosing) 1 each MISCELLANE DAILY PRN PRN Reason: Consult order Polyethylene Glycol (Polyethylene Glycol 3350 17 Gm Powd.Pack) 17 gm PO DAILY PRN PRN Reason: Constipation Sodium Chloride (0.9 % Sodium Chloride Flush 3 Ml Syringe) 3 ml IVFLUSH QSHIFT [facility] Last Admin: 09/21/24 09:07 Dose: 3 ml Documented By: KEENAN Labs 09/21/24 05:42 09/21/24 05:42 Labs: Laboratory Results - last 24 hr 09/21/24 09/21/24 05:42 10:14 MCV 92.1 MCH 29.8 MCHC 32.4 RDW 13.4 Plt Count 289 MPV 8.7 L Absolute Nucleated RBC 0.000 Nucleated RBC % (auto) 0.0 Anion Gap 9 L Estim Creat Clear Calc 107.4 Estimated GFR > 60 Random Glucose 120 H Calcium 8.7 Random Vancomycin 13.5 L Microbiology Microbiology Results: Microbiology 09/20/24 09:26 Blood Culture - Preliminary Blood - Venous No growth after 24 hours. 09/19/24 09:57 Blood Culture - Preliminary Blood - Venous No growth after 24 hours. 09/19/24 09:53 Blood Culture - Preliminary Blood - Venous No growth after 24 hours. Assessment and Plan (1) Osteomyelitis: Status: Acute Plan This is a 64-year-old male with a history of hypertension, Charcot foot who presents to the emergency department with worsening left foot infection Left foot cellulitis with osteomyelitis and abscess X-ray negative for bony involvement but inflammatory markers significantly elevated MRI showing osteomyelitis of stump of proximal phalanx of great toe and possible osteo of 1st metatarsal head and associated sesamoids; there are several small abscesses & suspected septic tenosynovitus No Sepsis continue broad-spectrum antibiotics with IV vancomycin and Zosyn, started 09/19.. ID is now recommending Dapto x 6 weeks, followed by PO Doxyt Requesting a PICC line seen by general surgery - does not feel pt needs surgical intervention arterial US with some PVD seen by vascular and recommend outpatient follow up with his sand technician acute lactic acidosis likely type 2 not due to sepsis as does not meet SIRS criteria SALVAOTRE CPAP qhs Does not take any medications at baseline. dvt ppx - lovenox Requires ongoing inpatient stay for management of left foot infection requiring IV antibiotics, further imaging and specialist evaluation plan discussed with patient, rn and relatives at bedside Quality Stroke Does the patient have a stroke diagnosis?: No VTE Prior VTE?: No VTE Risk Level:: Medical - moderate - high VTE Device Contraindication: Treatment Not Indicated VTE Drug Contraindication: N/A - Med Ordered
[2024-09-21] MEDS: Enoxaparin Sodium 40 MG/0.4 ML SYRINGE SUBCUT (11:48)
--- NOTE | 2024-09-21 14:27 | P.CONGS_ITS ---
<Statement entered by Kailash Loya MD - 09/21/24 14:58> I have seen and evaluated the patient and agree with history, findings, assessment and plan documented by Alicia Ferraro PA-c. Patient will follow up with with Podiatry regarding left great toe. Stable from an arterial standpoint as he does have palpable pulses. He does have evidence of venous disease and has had prior treatment for venous disease. He can follow up with us as an outpatient regarding that. Thank you for allowing us to assist in his care. History of Present Illness Consult details Consult date: 09/21/24 Narrative: We were consulted for Narinder, a pleasant 64 yo male patient, for an infection of his left foot. He presented to the ER on 09/19 for concerns of left foot pain with a possible infection/wound. He states this occurred a couple of days prior to being seen in the ER. He has been on IV abx. He continues to endorse pain in the area of the wound. He is followed by Dr Stapleton, podiatry, and has had an amputation done by them in the past, 2020. Review of Systems 2 Constitutional: Constitutional: Reports as per HPI and Denies weakness ENT: Reports Normal hearing present and Denies dizziness Cardiovascular: Cardiovascular: Reports as per HPI, Denies chest pain, Denies chest pain at rest, Denies chest pain with activity, Denies dyspnea and Denies dyspnea on exertion Respiratory: Respiratory: Reports as per HPI, Denies cough, Denies dyspnea and Denies dyspnea on exertion Gastrointestinal: Gastrointestinal: Reports as per HPI, Denies abdominal pain, Denies nausea and Denies vomiting Musculoskeletal: Musculoskeletal: Denies numbness Integumentary/Breasts: Skin/Breast: Reports as per HPI, Denies erythema and Denies wounds Neurologic: Reports Normal hearing present, Denies dizziness, Denies numbness, Denies Sensory deficit (Neuro) and Denies weakness Psychiatric: Psychiatric: Reports no additional psychiatric complaints Endocrine: Endocrine: Reports no additional endocrine complaints PMFSH Past Medical History Medical History SALVATORE (obstructive sleep apnea) Chronic cellulitis Amputation toe Neuropathy Charcot's joint of foot Hypertension Family History Family history: reviewed and not pertinent Surgical History Surgical History History of surgery on extremity H/O foot surgery Social History Social History Household Members: Children Household Members Other:: 4 Housing: House Do you presently have visiting nurse or other home services: No Alcohol intake: former Patient Tobacco Use Status: Never used Tobacco Smoked in Last 30 Days: No Use of substances other than those prescribed or required for medical reasons: No Currently Displaying Signs/Symptoms of Drug Intoxication Withdrawal: No Any prior treatment program specific to substance use: No Have you been hit, kicked, punched, or otherwise hurt by someone within the past year? If so, by whom?: No Do you feel safe in your current relationship?: Yes Is there a partner from a previous relationship who is making you feel unsafe now?: No Are you made to feel afraid or neglected: No Advance Directives: No Advance Directives Information Provided: Yes Do you have a plan to hurt others: No Plan Recently lost weight without trying: No Eating poorly because of decreased appetite: No Nutrition Risks: No Nutritional Risk Poor oral hygiene: No service: No Meds Allergies Allergy/AdvReac Type Severity Reaction Status Date / Time Sulfa (Sulfonamide Allergy Mild Rash Verified 09/19/24 08:14 Antibiotics) sulfamethoxazole Allergy Mild Rash Verified 09/19/24 08:14 [From BACTRIM] trimethoprim [From BACTRIM] Allergy Mild Rash Verified 09/19/24 08:14 Active Medications: Current Medications Acetaminophen (Acetaminophen 325 Mg Tablet) 650 mg PO Q6H PRN PRN Reason: Pain, Mild 1-3,fever,headache Calcium Carbonate (Calcium Carbonate 750 Mg Tab.Chew) 750 mg PO Q4H PRN PRN Reason: Heartburn Enoxaparin Sodium (Enoxaparin Sodium 40 Mg/0.4 Ml Syringe) 40 mg SUBCUT Q24H EMILIE Last Admin: 09/21/24 11:48 Dose: 40 mg Piperacillin Sod/Tazobactam (Sod 3.375 gm/ Sodium Chloride) 50 mls @ 100 mls/hr IV Q6H EMILIE Last Infusion: 09/21/24 12:28 Dose: Infused Vancomycin HCl 1,250 mg/ (Sodium Chloride) 250 mls @ 166.667 mls/hr IV Q12H [facility] Last Infusion: 09/21/24 14:20 Dose: Infused Melatonin (Melatonin 3 Mg Tablet) 6 mg PO BEDTIME PRN PRN Reason: Insomnia Pharmacy Consult (Consult Rx Vancomycin Dosing) 1 each MISCELLANE DAILY PRN PRN Reason: Consult order Polyethylene Glycol (Polyethylene Glycol 3350 17 Gm Powd.Pack) 17 gm PO DAILY PRN PRN Reason: Constipation Sodium Chloride (0.9 % Sodium Chloride Flush 3 Ml Syringe) 3 ml IVFLUSH QSHIFT EMILIE Last Admin: 09/21/24 09:07 Dose: 3 ml Home Medications ?Medication ?Instructions ?Recorded ?Confirmed ?Last Taken ?Type No Known Home Meds 09/19/24 09/19/24 Unknown History Physical Exam 2 Vital Signs: Vital Signs: Last Vital Signs Temp 97 F 09/21/24 06:56 Pulse 60 09/21/24 06:56 Resp 16 09/21/24 06:56 BP 134/77 09/21/24 06:56 Pulse Ox 95 09/21/24 06:56 O2 Del Method Room Air 09/21/24 06:56 BMI result Body Mass Index 31.8 Const: General: comfortable and no acute distress O rientation/consciousness: patient oriented x3 HEENT: Ears: hearing grossly normal bilaterally Resp: Effort & Inspection: normal respiratory effort and able to speak in complete sentences Auscultation: clear to auscultation bilaterally Cardio: Rate: regular rate Rhythm: regular rhythm Heart sounds: S1 normal heart sound present and S2 normal heart sound present Bruits: no abdominal aortic bruits, no carotid bruits, no femoral bruits and no renal bruits GI: Palpation (GI): No Abdominal aortic bruit present Neuro: General: patient oriented x3 Cranial nerves: Yes Normal hearing present Sensory Exam: No Sensory deficit (Neuro) Extrem: Other: Left foot: very edematous L1 toe with open wound in between L1 and L2. No odor. Wound bed is pink with yellow slough noted around the wound bed. Significant amt of drainage noted on the dressing. Palpable DP pulse. Results Labs 09/21/24 05:42 09/21/24 05:42 Labs: Abnormal lab results 09/21/24 09/21/24 Range/Units 05:42 10:14 RBC 3.79 L (4.60-5.80) X10*6/uL Hgb 11.3 L (14.0-18.0) g/dl Hct 34.9 L (42.0-52.0) % MPV 8.7 L (9.4-12.4) fL Chloride 112 H (96-108) mmol/L Anion Gap 9 L (12-20) Random Glucose 120 H (60-115) mg/dL Random Vancomycin 13.5 L (15-20) mcg/mL Short CBC 09/21/24 Range/Units 05:42 WBC 6.4 (4.8-10.8) X10*3/uL Hgb 11.3 L (14.0-18.0) g/dl Hct 34.9 L (42.0-52.0) % Plt Count 289 (160-400) X10*3/uL BMP 09/21/24 05:42 Sodium 142 Potassium 4.4 Chloride 112 H Carbon Dioxide 25 BUN 14 Creatinine 0.85 Calcium 8.7 All other labs normal. Assessment and Plan (1) Osteomyelitis: Qualifiers: Osteomyelitis type: other acute Osteomyelitis location: foot L aterality: left Qualified Code(s): M86.172 - Other acute osteomyelitis, left ankle and foot Status: Acute Plan Narinder presented to the ER with concerns of an infection in his left foot, between his first and second toes. He was found to have osteo and started on IV Abx. 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 He states his L1 toe usually appears bigger, but it has become much bigger over the last couple of days. We have reviewed his imaging and there are no acute surgical interventions at this point. The pt states he would like to follow back up with Dr Stapleton for further evaluation/treatment. Thank you for the consult. If there are any questions or concerns please do not hesitate to reach out to us. Procedures Date of Service Date of Service: 09/21/24
[2024-09-21 15:47] VITALS: BP 142/81; PULSE 59; RESP 18; TEMP 36.6; O2SAT 97
[2024-09-21 19:25] VITALS: BP 163/77; PULSE 63; RESP 18; TEMP 36.6; O2SAT 95
[2024-09-22] MEDS: vancomycin HCL 1,250 MG in 0.9 % Sodium Chloride 250 ML 166.67 MG IV (00:09)
[2024-09-22 03:38] VITALS: BP 152/89; PULSE 54; RESP 16; TEMP 37.1; O2SAT 97
[2024-09-22 05:49] LABS: Creatinine Clr Calc Pharmacy 111.3; Estimated Glomerular Filt Rate > 60
[2024-09-22] MEDS: Piperacillin Sodium/Tazobactam 3.375 GM in 0.9 % Sodium Chloride 50 ML IV (06:09)
[2024-09-22 07:56] VITALS: BP 131/83; PULSE 71; RESP 18; TEMP 36.1; O2SAT 96
--- NOTE | 2024-09-22 08:41 | HO.VASCPN ---
Subjective Subjective Date of Service: 09/22/24 Interval history: Narinder is doing well this morning. He has no concerns. He denies any pain at the site of the wound. He is going to be getting discharged home; however, he needs a PICC line placed first and will be going home with IV Abx. Physical Exam Vital Signs: Vital Signs: Last Vital Signs Temp 96.9 F 09/22/24 07:56 Pulse 71 09/22/24 07:56 Resp 18 09/22/24 07:56 BP 131/83 09/22/24 07:56 Pulse Ox 96 09/22/24 07:56 O2 Del Method Room Air 09/22/24 07:56 BMI result Body Mass Index 31.8 Const: General: comfortable and no acute distress Orientation/consciousness: patient oriented x3 HEENT: Ears: hearing grossly normal bilaterally Resp: Effort & Inspection: normal respiratory effort and able to speak in complete sentences Auscultation: clear to auscultation bilaterally Cardio: Rate: regular rate Rhythm: regular rhythm Heart sounds: S1 normal heart sound present and S2 normal heart sound present Bruits: no abdominal aortic bruits, no carotid bruits, no femoral bruits and no renal bruits GI: Palpation (GI): No Abdominal aortic bruit present Neuro: General: patient oriented x3 Cranial nerves: Yes CN's II-XII intact bilaterally Extrem: Other: Left foot: Dressing not taken down this morning. No drainage/bleeding noted on dressing. Progress Note: A&P Assessment and plan (1) Osteomyelitis: Status: Acute Assessment and Plan: Narinder remains stable from a vascular surgery standpoint. He will be following up with Dr Stapleton outpatient for further evaluation and treatment. We discussed following up with us for the venous dx that was found. Thank you for the consult. If there are any questions or concerns, please do not hesitate to reach out. Time Spent With Patient Time: Total time managing care of this patient today ____ minutes. Procedures Date of Service Date of Service: 09/22/24 Quality Stroke Does the patient have a stroke diagnosis?: No VTE Prior VTE?: No VTE Risk Level:: Medical - moderate - high VTE Device Contraindication: Treatment Not Indicated VTE Drug Contraindication: N/A - Med Ordered
--- NOTE | 2024-09-22 08:59 | PM.DS ---
DS: Providers Provider Date of Service: 09/22/24 Date of admission: 09/19/24 11:26 Date of discharge: 09/22/24 Primary care physician: Jennifer Walter MD Consults: 09/19/24 14:50 Consult to General Surgery Routine Consulting Provider[place] [facility] Reason for consultation: right foot infection Has provider been notified: No 09/19/24 18:09 Consult to Wound Care Routine Reason for consultation: nonhealing left foot ulcer 09/20/24 12:41 Consult to Infectious Diseases Routine Consulting Provider: [facility] Reason for consultation: left great toe osteo, abscess, septic tensosynovitus Has provider been notified: No 09/20/24 12:44 Consult to Vascular Surgery Routine Consulting Provider: [facility] Reason for consultation: left great toe infection; PVD Has provider been notified: No DS: Diagnosis Discharge Diagnosis (1) Osteomyelitis: Status: Acute DS: Summary Hospital Course Hospital Course: Admission hpi Chief Complaint: left foot infection This is a 64-year-old male with history of hypertension who presents to the emergency department with worsening left foot infection. He has a history of left great toe partial amputation in 2019. Over the summer he developed a blister and has been working with his music agent Dr. Stapleton with good improvement of that wound. Several days ago he developed a blister in between his great toe and the 2nd toe associated with swelling and erythema. He was started on oral Augmentin but was told to come to the emergency department if he did not notice any changes. He reports overnight the swelling significantly increased. He denies any associated fever or chills. In the emergency department he was noted to have significant swelling of his left foot and leg, x-ray of the foot did not reveal any bony involvement. Inflammatory markers were significantly elevated although patient was afebrile, with no leukocytosis. He was started on broad-spectrum antibiotics and the decision was made to admit him to the hospital for further management. Hospital course: Left foot cellulitis with osteomyelitis and abscess, xray show no bony involvment yet MRI osteomyelitis of stump of proximal phalanx of great toe and possible osteo of 1st metatarsal head and associated sesamoids; there are several small abscesses & suspected septic tenosynovitus. ESR and CRP are elevated. Blood cultures are negative. He has been treated with Zosyn and Vancomycin during for the first 4 days. He was evaluated by ID with recommendation to transition to Daptomycin and to follow by oral Doxycyline. He has also been evaluated by Vascular surgery with recommendation to follow up with his Commercial Reporter Dr. Dr Stapleton . Arterial US showed some PVD. General surgery also saw with no recommendation for intervention. acute lactic acidosis likely type 2 not due to sepsis as does not meet SIRS criteria SALVATORE CPAP qhs Does not take any medications at baseline. Time Attestation Discharge Coordination Time (in mins): 35 Quality: Safe Use of Opioids Does Pt have an Active Cancer Diagnosis on the Problem List?: No Quality: Stroke Does the patient have a stroke diagnosis?: No Physical Exam Vital Signs: Vital Signs: Last Vital Signs Temp 96.9 F 09/22/24 07:56 Pulse 71 09/22/24 07:56 Resp 18 09/22/24 07:56 BP 131/83 09/22/24 07:56 Pulse Ox 96 09/22/24 07:56 O2 Del Method Room Air 09/22/24 07:56 BMI result Body Mass Index 31.8 DS: Data Data Completed and Pending Labs on day of discharge: Laboratory Results - last 24 hr 09/21/24 09/22/24 10:14 05:23 Creatinine 0.82 Estim Creat Clear Calc 111.3 Estimated GFR > 60 Random Vancomycin 13.5 L Preliminary micro results at discharge 09/20/24 10:12 Blood Culture - Preliminary Blood - Venous No growth after 24 hours. 09/19/24 09:57 Blood Culture - Preliminary Blood - Venous No growth after 48 hours. 09/19/24 09:53 Blood Culture - Preliminary Blood - Venous No growth after 48 hours. 09/20/24 09:26 Blood Culture - Preliminary Blood - Venous No growth after 24 hours. Discharge Plan Discharge Anticipated Discharge Date/Time: 09/22/24 13:32 Patient Disposition: Home, Self-Care Discharge Diagnosis: Osteomyelitis of the foot, cellulitis Referrals: Jennifer Walter MD [Primary Care Provider] - 1 Week Brandi Richardson MD [Physician] - 3 Weeks (follow up on osteomylitis) Discharge Medications: New daptomycin 500 mg Recon Soln 700 mg IV Q24H Qty: 41 0RF Discharge Orders: Discharge Order (Routine); Ordered 09/22/24 Ordered By: Miguel Soler Diet: Advance to usual diet Activity on Discharge: As tolerated Stand Alone Forms: Patient Portal Discharge page Print Language: Yakut Care Plan Goals: Osteomyelitis of the foot Health Concerns: Osteomylitis of the foot Plan of Treatment: IV daptomycin 700 mg daily, ending November 03, [address] Richardson, you may need to be startedon Doxycyline after you complete daptomycin follow up with your doctor in 1 to 2 weeks Assessment: see
--- NOTE | 2024-09-22 13:03 | HO.PICC ---
PICC Line Insertion NPICC Diagnosis: Osteomyelitis Indication: 6wks abt Pertinent Labs: reviewed Technique: Following informed consent including risks, benefits and alternatives and using sterile technique including cap and mask, sterile gown, glove and drape, the right arm was prepped and draped in the usual sterile fashion of full barrier technique with CHG. Following completion of [place] Protocol the skin and soft tissues were anesthetized with 1% Lidocaine plain. Using ultrasound guidance, right basilic vein access was obtained. Over an 0.018 wire through peel-away sheath, a 4 fr single lumen PASV PICC line was positioned. Catheter length is 42cm internal length, 0cm external length, for a total trimmed length of 42cm. The procedure was performed in Rm 272. Tip verification was performed by Zari Leggett with Sherlock 3CG. Tip located in SVC. Ultrasound was used to document vein patency and for needle entry. A formal ultrasound picture and cardiac rhythm strip was recorded. Vascular Building Trades Instructor has released the line for use and it is currently dressed with a StatLock, Tegaderm, and CHG disc. Verification has been performed for blood return and line patency. Arm Circumference: 34cm Equipment: [employer] PowerPICC Solo Catheter with Sherlock 3CG Tip Catheter Type: 4FR single lumen PASV catheter Lot #: [id number]
[2024-09-22] MEDS: Enoxaparin Sodium 40 MG/0.4 ML SYRINGE SUBCUT (13:43)
[2024-09-22] MEDS: DAPTOmycin 700 MG in 0.9 % Sodium Chloride 50 ML 96.2 MG IV (13:43)
--- NOTE | 2024-09-22 13:52 | MHC.CM.PN ---
pt home with iv dapto thru [facility]
--- NOTE | 2024-09-22 14:39 | MHC.CM.PN ---
being dcd today home with [facility] feels pt can mange iv antbiotics he has done this before his dgter was present for the teach..vna will go in for dressing changes asked for f2f
--- NOTE | 2024-09-22 14:41 | P.F2F_ITS ---
Service Date Service Date: 09/22/24 Encounter Date of encounter: 09/22/24 Reasons for Services Signs and symptoms assessed: osteomylitis of the foot Reason for nursing home: medication management Homebound: Leaving the home is medically contraindicated at this time without the asist of a device and/or another person due th the listed conditions above and below. Reason homebound: pain with ambulation Homebound supporting statement: homebound due to osteomylitis of the foot causing pain and difficulty ambulating and therefore needs the assistance of another person Certification: Based on the above findings, I certify that this patient is confined to the home and needs intermittent nursing home care, physical therapy and/or speech therapy, or continues to need occupational therapy. The patient is under my care, and I have initiated the establishment of the plan of care. The patient will be followed by a physician who will periodically review the plan of care. Time Spent With Patient Time: Total time managing care of this patient today ____ minutes.
--- NOTE | 2024-09-25 13:12 | P.CDIM_ITS ---
PROVIDER RESPONSE TEXT: To clarify, the appropriate diagnosis supported by the clinical indicators: Acute Osteomyelitis QUERY TEXT: PHYSICIAN'S DOCUMENTATION REQUEST Date of Query: 09/22/2024 09:38 AM EST Patient Name: Narinder Macias Admit Date: 09/19/2024 Dear Miguel Soler MD, A review of the medical record indicates additional documentation may be needed. Please review below and update the documentation accordingly. Clinical Indicators: Osteomyelitis is noted in the Discharge Summary on 09/22/24 Left foot cellulitis with osteomyelitis and abscess, xray show no bony involvement yet MRI osteomyeli tis of stump of proximal phalanx of great toe and possible osteo of 1st metatarsal head and associated sesamoids Clarify which of the following accurately represents the acuity of the Osteomyelitis in the Discharge Summary. Possible options might include: Acute Osteomyelitis Acute on chronic Osteomyelitis Compensated Chronic stable condition Remission Other (explain) Clinically unable to determine (explain) Thank you, Ludy Melendez RN Use of terms such as suspected, likely, concern for, or probable (associated with a specific diagnosi s that is being evaluated, monitored, or treated as if it exists) are acceptable and can be coded in the inpatient se tting, when documented at the time of discharge. Please use your independent medical judgment in providing your response. THIS QUERY IS PART OF THE PERMANENT MEDICAL RECORD
== END 2024-09-22 15:25 | disposition home health service (06) | DRG 540 ==
LOC: HO.ED 10:48 → HO.EDOVER 11:30 → HO.S3 16:48
PROVIDERS: Physician Assistant Medical; Admitting Provider Physician Assistant Medical; Emergency Provider Emergency Medicine; PCP Internal Medicine; Visit Provider Internal Medicine
DX: M86.172 Other acute osteomyelitis, left ankle and foot (principal); A52.16 Charcot's arthropathy (tabetic); L03.116 Cellulitis of left lower limb; E87.21 Acute metabolic acidosis; L02.612 Cutaneous abscess of left foot; M65.972 Unspecified synovitis and tenosynovitis, left ankle and foot; G47.33 Obstructive sleep apnea (adult) (pediatric); G62.9 Polyneuropathy, unspecified
CPT/HCPCS: 36415; 36573; 73630; 73720; 80048; 80076; 80202; 82565; 83036; 83605; 83690; 85025; 85027; 85652; 86140; 87040; 93926; 99285; A9585; C1751; J0878; J1650; J2543; J3370; J3371

== ENCOUNTER → 2024-09-19 08:17 | Outpatient (BNV) | payer MEDICARE, SELFPAY | PROVIDERS: PCP Internal Medicine | DX: L03.116 Cellulitis of left lower limb (principal) | CPT/HCPCS: 73630; 93926 ==

== ENCOUNTER 2024-09-19 11:26 | Outpatient (BNV) | payer MEDICARE, SELFPAY | END 2024-09-20 11:18 | PROVIDERS: Admitting Provider Physician Assistant Medical; Emergency Provider Emergency Medicine; PCP Internal Medicine; Visit Provider Radiology Diagnostic Radiology | DX: T87.89 Other complications of amputation stump (principal); A41.9 Sepsis, unspecified organism; M65.172 Other infective (teno)synovitis, left ankle and foot; L02.612 Cutaneous abscess of left foot | CPT/HCPCS: 73720 ==

== ENCOUNTER → 2024-09-19 11:26 | Outpatient (BNV) | payer MEDICARE, SELFPAY | PROVIDERS: Admitting Provider Physician Assistant Medical; Emergency Provider Emergency Medicine; PCP Internal Medicine; Visit Provider Surgery | DX: L03.116 Cellulitis of left lower limb (principal) | CPT/HCPCS: 99222 ==

== ENCOUNTER → 2024-09-19 11:26 | Outpatient (BNV) | payer MEDICARE, SELFPAY | PROVIDERS: Admitting Provider Physician Assistant Medical; Emergency Provider Emergency Medicine; PCP Internal Medicine; Visit Provider Physician Assistant Surgical | DX: M86.172 Other acute osteomyelitis, left ankle and foot (principal) | CPT/HCPCS: 99222; 99232 ==

== ENCOUNTER → 2024-09-19 11:26 | Outpatient (BNV) | payer MEDICARE, SELFPAY | PROVIDERS: Admitting Provider Physician Assistant Medical; Emergency Provider Emergency Medicine; PCP Internal Medicine; Visit Provider Internal Medicine | DX: M86.9 Osteomyelitis, unspecified (principal); L03.116 Cellulitis of left lower limb | CPT/HCPCS: 99222; 99499 ==

== ENCOUNTER → 2024-09-19 11:26 | Outpatient (BNV) | payer MEDICARE, SELFPAY | PROVIDERS: Admitting Provider Physician Assistant Medical; Emergency Provider Emergency Medicine; PCP Internal Medicine; Visit Provider Physician Assistant Medical | DX: M86.9 Osteomyelitis, unspecified (principal); L03.116 Cellulitis of left lower limb | CPT/HCPCS: 99223; 99232 ==

== ENCOUNTER 2024-09-29 11:35 | Outpatient (REF) | payer MEDICARE, SELFPAY ==
[2024-09-29 13:17] LABS: MANUAL DIFF FLAG NO
[2024-09-29 13:29] LABS: Basophils Percent Auto 0.6 % (0-2); Eosinophils Absolute Auto 0.4 X10*3/uL (0.0-0.4); Eosinophils Percent Auto 5.3 % (0-4); Hematocrit 43.7 % (42.0-52.0); Hemoglobin 14.1 g/dl (14.0-18.0); Imm Gran Abs Auto 0.03 X10*3/uL (0.00-0.03); Imm Gran Pct Auto 0.4 % (0.0-0.4); Lymphocytes Absolute Auto 1.2 X10*3/uL (1.2-4.9); Lymphocytes Percent Auto 17.3 % (20-40); Mean Corpuscular HGB Conc 32.3 g/dl (31.0-36.0); Mean Corpuscular Hemoglobin 29.7 pg (27.0-33.0); Mean Platelet Volume 8.8 fL (9.4-12.4); Monocytes Absolute Auto 0.5 X10*3/uL (0.1-1.2); Monocytes Percent Auto 7.4 % (2-11); Neutrophils Absolute Auto 4.8 x10*3/uL (2.0-8.3); Platelet Count 322 X10*3/uL (160-400); Red Blood Count 4.75 X10*6/uL (4.60-5.80); Red Cell Distribution Width 13.7 % (11.0-16.0)
[2024-09-29 13:53] LABS: Alanine Aminotransferase 32 U/L (0-40); Albumin Level 3.8 g/dL (3.5-5.0); Alkaline Phosphatase 97 U/L (39-117); Anion Gap 12 (12-20); Aspartate Amino Transferase 28 U/L (5-37); Bilirubin Total 0.7 mg/dL (0.0-1.0); Blood Urea Nitrogen 14 mg/dL (9-16); Calcium 9.8 mg/dL (8.4-10.2); Carbon Dioxide 25 mmol/L (22-29); Chloride 109 mmol/L (96-108); Estimated Glomerular Filt Rate > 60; Glucose Random 89 mg/dL (60-115); Sodium 142 mmol/L (135-145); Total Protein 7.8 g/dL (6.5-8.0)
== END 2024-09-29 11:36 | disposition home or self-care (01) ==
LOC: HO.HVNA 11:35
PROVIDERS: PCP Internal Medicine; Referring Provider Internal Medicine; Visit Provider Internal Medicine
DX: M86.172 Other acute osteomyelitis, left ankle and foot (principal)
CPT/HCPCS: 36415; 80053; 82550; 85025

== ENCOUNTER 2024-10-13 11:35 | Outpatient (REF) | payer MEDICARE, SELFPAY ==
--- OUTSIDE RECORDS SUMMARY | 2024-10-13 14:19 | XMS_ITS ---
Author Organization [facility] Address [address] [place] [address] Care Team Providers Care Ear Pull Machine Operator Name Role Phone Jennifer Walter Primary Care Provider Unavailab BEVERLY Alberto Unavailable [phone] REASON FOR VISIT office surgery Encounters Encounter Location Date Provider Diagnosis [facility] [address] [place] [address] 10/05/2024 BEVERLY MOELLER Plan Of Treatment Next Appt Details Provider Name:BEVERLY MOELLER, 10/21/2024 10:45:00 AM, [address] [facility], [facility] [address], [place], [address], Progress Notes * Narinder MACIASDOB: 0 (64 yo M)Acc No.[id number]:10/05/2024 Patient:?MACIASNarinder MICHELLE :1960???Age:64 Y???Sex:Male Address:[address] [place] [address] * true * Date:? Generated for Printi ng/Fatrellg/eTransmitting on:?10/13/2024 02:19 PM EST
--- OUTSIDE RECORDS SUMMARY | 2024-10-13 14:19 | XMS_ITS ---
Author Organization [facility] Address [address] [place] [address] Care Team Providers Care Hematology Oncology Consultant Name Role Phone Jennifer Walter Primary Care Provider Unavailab BEVERLY Alberto Unavailable [phone] REASON FOR VISIT Infectious disease Encounters Encounter Location Date Provider Diagnosis [facility] [address] [place] [address] 10/09/2024 BEVERLY MOELLER Plan Of Treatment Next Appt Details Provider Name:BEVERLY MOELLER, 10/21/2024 10:45:00 AM, [address] [facility], [facility] [address], [place], [address], Progress Notes * Narinder MACIASDOB: 0 (64 yo M)Acc No.[id number]:10/09/2024 Patient:?JAY Narinder :1960???Age:64 Y???Sex:Male Address:[address] [place] [address] * * Date:?
--- OUTSIDE RECORDS SUMMARY | 2024-10-13 14:19 | XMS_ITS | Clinical Summary ---
Author Organization [facility] Address [address] [place] [address] Care Team Providers Care Manager Express Name Role Phone Unavailable Primary Care Provider Unavailabl e Social History Tobacco Use Types Packs/Day Years Used Date Smoking Tobacco: Never Assessed Sex and Gender Information Value Date Recorded Sex Assigned at Not on file Gender Identity Not on file Sexual Orientation Not on file Plan of Treatment Not on file
--- OUTSIDE RECORDS SUMMARY | 2024-10-13 14:20 | XMS_ITS | Patient Health Record ---
Author Organization [facility] Address [address] [facility] [address] [place] [address] Care Team Providers Care Last Dipper Name Role Phone Lilisteve Jennifer Primary Care Provider BEVERLY Rios Unavailable [phone] Allergies Allergen (clinical drug ingredient) Drug/Non Drug Allergy documented on EMR Reaction Allergy Type Onset Date Status sulfamethoxazole / trimethoprim Bactrim Unknown Drug Allergy Active Results Component Value Reference Range Notes Anaerobic/Aerobic/Gram Stain -[id number] Reviewed date:06/26/2024 02:17:10 PM Interpretation: Performing Lab:[facility], [address], [address], [place], Phone - [phone], Director - [facility] Notes/Report: Clinical Information:SRC: L FOOT Clinical Information:SRC: L FOOT Clinical Information:SRC: L FOOT Clinical Information:SRC: L FOOT Anaerobic Culture Final report Aerobic Culture Final report Gram Stain Result Final report Result 1 No anaerobic gr owth in 72 hours. Result 1 Beta hemolytic Streptococcus, group B Heavy growth Penicillin and ampicillin are drugs of choice for treatment of beta-hemolytic streptococcal infections. Susceptibility testing of penicillins and other beta-lactam agents approved by the FDA for treatment of beta-hemolytic streptococcal infections need not be performed routinely because nonsusceptible isolates are extremely rare in any beta-hemolytic streptococcus and have not been reported for Streptococcus pyogenes (group A). (CLSI) Susceptibility not normally performed on this organism. Result 1 Moderate amount of white blood cells. Result 2 Moderate number of gram positive cocci. Anaerobic/Aerobic/Gram Stain -[id number] Reviewed date:06/08/2024 07:05:21 AM Interpretation: Performing Lab:[facility], [address], [address], [place], Phone - [phone], Director - [place] Notes/Report: Clinical Information:SRC: RIGHT FOOT ULCER Clinical Information:SRC: RIGHT FOOT ULCER Clinical Information:SRC: RIGHT FOOT ULCER Clinical Information:SRC: RIGHT FOOT ULCER Anaerobic Culture Final report Aerobic Culture Final report Gram Stain Result Final report Result 1 No anaerobic gr owth in 72 hours. Result 1 Stenotrophomonas maltophilia Moderate growth Result 2 Beta hemolytic Streptococcus, group B Light growth Penicillin and ampicillin are drugs of choice for treatment of beta-hemolytic streptococcal infections. Susceptibility testing of penicillins and other beta-lactam agents approved by the FDA for treatment of beta-hemolytic streptococcal infections need not be performed routinely because nonsusceptible isolates are extremely rare in any beta-hemolytic streptococcus and have not been reported for Streptococcus pyogenes (group A). (CLSI) Susceptibility not normally performed on this organism. Antimicrobial Susceptibility S = Susceptible; I = Intermediate; R = Resistant P = Positive; N = Negative MICS are expressed in micrograms per mL Antibiotic RSLT#1 RSLT#2 RSLT#3 RSLT#4 Ceftazidime S Trimethoprim/Sulfa S Result 1 Rare white bloo d cells. Result 2 Rare gram posit octavia cocci Reason For Referral Reason left foot infection Diagnosis 1 Acute osteomyelitis of left foot (M86.172) Diagnosis 2 Ulcer of left foot w ith fat layer exposed (L97.522) Referring Provider First Name Jennifer Referring Provider Last Name Jose Angel Referred Organization [facility] Referred Provider BEVERLY MOELLER Referred Address [address] [place] [id number], Referred Provider Specialty Podiatry Referral Priority Routine Medications Medication SIG (Take, Route, Frequency, Duration) Notes Start Date End Date Status Multivitamin - 1 tablet Orally Once a day Active Amoxicillin-Pot Clavulanate 875-125 MG 1 tablet Orally every 12 hrs for 14 days Not-Taking Vitamin C 1000 MG 1 tablet Orally Once a day Active Vitamin D3 Active Garlic 1000 MG as directed Orally Active Zinc 50 MG 1 tablet Orally Once a day Active Losartan Potassium-HCTZ 100-12.5 MG 1 tablet Orally Once a day Not-Taking Fish Oil 1000 MG 1 capsule Orally Onc e a day Active Heparin Sodium (Porcine) 10 units Active levoFLOXacin 500 MG 1 tablet Orally twic e daily for 10 day(s) 04/01/2023 Not-Taking DAPTOmycin 350 MG as directed Intravenous 700MG Active Lipitor 20 MG 1 tablet Orally Once a day Not-Taking Doxycycline Monohydrate 100 MG 1 capsule Orally twice daily for 5 days Not-Taking Problems Problem Type SNOMED Code ICD Code Onset Dates Problem Status W/U Status Risk Notes Problem [id number] Hallux rigidus o f right foot (M20.21) Active confirmed Problem 487298064 Hammer toe of left foot (M20.42) Active confirmed Problem 730584934 Hammer toe of right foot (M20.41) Active confirmed Problem 671632175 Skin ulcer of to e of left foot, limited to breakdown of skin (L97.521) Active confirmed Problem 89845163 Idiopathic peripheral neuropathy (G60.9) Active confirmed Problem Postprocedural states (481799877) Status post left foot surgery (Z98.890) Active confirmed Problem 651618500 Ulcer of left foot with fat layer exposed (L97.522) Active confirmed Problem 460684208 Charcot's arthropathy (M14.60) Active confirmed Problem 17996463 Gait instability (R26.81) Active confirmed Problem 52390643958339242 Skin ulcer of toe of right foot with fat layer exposed (L97.512) Active confirmed Problem 68340006 Peripheral polyneuropathy (G62.9) Active confirmed Problem 0488119511994201 Acute osteomyelitis of left foot (M86.172) Active confirmed Problem 450576657 Hammertoe of lef t foot (M20.42) Active confirmed Problem 770231753 Ulcer of right second toe with fat layer exposed (L97.512) Active confirmed Problem Skin ulcer of second toe of right foot with necrosis of muscle (L97.513) Active confirmed Vital Signs Heart Rate 64 /min 10/05/2024 Temperature 97.2 degrees Fahrenheit 10/05/2024 Respiratory Rate 16 /min 10/05/2024 Blood pressure diastolic 84 mm Hg 06/10/2024 Height 5ft 11in in 10/05/2024 Blood pressure systolic 130 mm Hg 06/10/2024 Weight 234.8 lbs 10/05/2024 BMI 32.74 kg/m2 10/05/2024 Encounters Encounter Location Date Provider Diagnosis [facility] [address] [facility] [address] [place] [address] 01/01/2024 BEVERLY MOELLER Idiopathic peripheral neuropathy G60.9 ; Charcot's arthropathy M14.60 ; Gait instability R26.81 ; Hammer toe of left foot M20.42 and Onychodystrophy L60.3 [facility] [address] 04/06/2024 BEVERLY MOELLER Onychodystrophy L60.3 ; Ingrown toenail of right foot L60.0 ; Idiopathic peripheral neuropathy G60.9 ; Charcot's arthropathy M14.60 ; Gait instability R26.81 and Hammer toe of left foot M20.42 [facility] [address] 06/03/2024 BEVERLY MOELLER Cellulitis of left foot L03.116 ; Ulcer of left foot with fat layer exposed L97.522 ; Idiopathic peripheral neuropathy G60.9 and Charcot's arthropathy M14.60 [facility] [address] 06/10/2024 BEVERLY MOELLER Cellulitis of left foot L03.116 ; Ulcer of left foot with fat layer exposed L97.522 ; Idiopathic peripheral neuropathy G60.9 and Charcot's arthropathy M14.60 [facility] [address] 06/22/2024 BEVERLY MOELLER Cellulitis of left foot L03.116 ; Ulcer of left foot with fat layer exposed L97.522 ; Idiopathic peripheral neuropathy G60.9 and Charcot's arthropathy M14.60 [facility] [address] 07/03/2024 BEVERLY MOELLER Cellulitis of left foot L03.116 ; Ulcer of left foot with fat layer exposed L97.522 ; Idiopathic peripheral neuropathy G60.9 and Charcot's arthropathy M14.60 [facility] [address] 07/08/2024 BEVERLY MOELLER Cellulitis of left foot L03.116 ; Blister of toe of left foot, initial encounter S90.425A ; Ulcer of left foot with fat layer exposed L97.522 ; Idiopathic peripheral neuropathy G60.9 and Charcot's arthropathy M14.60 [facility] [address] 07/10/2024 BEVERLY MOELLER Cellulitis of left foot L03.116 ; Ulcer of left foot with fat layer exposed L97.522 ; Idiopathic peripheral neuropathy G60.9 and Charcot's arthropathy M14.60 [facility] [address] 07/20/2024 BEVERLY MOELLER Ulcer of left foot with fat layer exposed L97.522 ; Idiopathic peripheral neuropathy G60.9 and Charcot's arthropathy M14.60 [facility] [address] 07/31/2024 BEVERLY MOELLER Ulcer of left foot with fat layer exposed L97.522 ; Idiopathic peripheral neuropathy G60.9 and Charcot's arthropathy M14.60 [facility] [address] 08/14/2024 BEVERLY MOELLER Ulcer of left foot with fat layer exposed L97.522 ; Idiopathic peripheral neuropathy G60.9 and Charcot's arthropathy M14.60 [facility] [address] 08/28/2024 BEVERLY MOELLER Ulcer of left foot with fat layer exposed L97.522 ; Idiopathic peripheral neuropathy G60.9 and Charcot's arthropathy M14.60 [facility] [address] 10/05/2024 BEVERLY MOELLER Acute osteomyelitis of left foot M86.172 ; Ulcer of left foot with fat layer exposed L97.522 and Left foot infection L08.9 [facility] [address] 10/09/2024 BEVERLY MOELLER [facility] [address] 06/05/2024 BEVERLY MOELLER [facility] [address], [place] 06/24/2024 BEVERLY MOELLER [facility] [address], [place] 09/17/2024 BEVERLY MOELLER Ulcer of left foot with fat layer exposed L97.522 [facility] [address], [place] 09/21/2024 BEVERLY MOELLER [facility] [address], [place] 10/02/2024 BEVERLY MOELLER [facility] [address], [place] 10/05/2024 BEVERLY MOELLER Assessments Encounter Date Diagnosis (ICD Code) Assessment Notes Treatment Notes Treatment Clinical Notes Section Notes 01/01/2024 Idiopathic peripheral neuropathy (ICD-10 - G60.9) I [...] why the right foot pain has increased. 04/06/2024 Ingrown toenail of right foot (ICD-10 - L60.0) 04/06/2024 Onychodystrophy (ICD-10 - L60.3) I reviewed nail avulsions with the patient and also phenol/surgical matrixectomies. Discussed a total nail avulsion procedure with the patient. The patient agreed to said procedure and consent was signed. As described above, a total nail avulsion of the right hallux toenail was performed. Pt tolerated well. Post-procedure instructions were given to the patient. They are to remove the initial bandage 24hrs after the procedure. Bacitracin and band-aid are to be applied to the toe for the next 7-14 days. 06/03/2024 Ulcer of left foot with fat layer exposed (ICD-10 - L97.522) 06/03/2024 Cellulitis of left foot (ICD-10 - L03.116) This is an outpatient visit for evaluation and management of a new problem, which required appropriate review of pertinent medical history, review of any previous imaging, review of all previous records, and examination and complex decision-making. Time was 30 minutes spent in review of all these facets including face to face discussion with the patient regarding my findings and in discussion of a current and future treatment plan. This patient has a left foot infection on examination today. I stressed the severity of the situation with the patient today. I reviewed the x-rays which do not reveal a Charcot flare up or osteomyelitis. He does have a significant soft tissue infection on examination today. I discussed with the patient that I will start him on an oral antibiotic but if the foot does not look improved over the next 2 days, then he will need to go to the hospital for IV antibiotics. I also stressed if his fever and chills do not improve, he needs to go to the hospital for IV antibiotics. RX doxycycline 100mg PO BID x 10 days sent to the pharmacy. We discussed the importance of proper offloading for the wound to heal. He needs to be resting the left foot and keeping it elevated. I explained to the patient that until the left foot wound was healed, he should be keeping the wound covered daily. He should also not be getting his feet wet until the wound is healed. Continue to elevate the feet to help with the swelling. I performed a full thickness debridement of the plantar wound of the left foot with a #15 blade; all non-viable tissue was excised, and the wound was debrided to a clean bleeding base. No abscess found. The patient tolerated the procedure well. The new wound measurements for the left foot were 1.0cm x 0.6cm in size. The area does not probe to bone, but I warned the patient that if it continues to deteriorate this could continue to the bone. Wound culture taken. I may change the antibiotic based on the wound culture results. Patient was instructed not to pick at the foot and only apply Bactroban to the wound with a dry dressing only. The patient is to change the bandage daily. Pt to call or go to ER if the foot becomes painful red, they see pus, or the wound worsens. Patient to follow up in 1 week. 06/10/2024 Cellulitis of left foot (ICD-10 - L03.116) There has been improvement of the swelling and redness since his last visit. The antibiotics are working to help resolve the infection. I reviewed the x-rays which do not reveal a Charcot flare up or osteomyelitis. RX refilled doxycycline 100mg PO BID x 11 days sent to the pharmacy. I would like him to complete a 3 week course of the antibiotics in total. We discussed the importance of proper offloading for the wound to heal. He needs to be resting the left foot and keeping it elevated. I explained to the patient that until the left foot wound was healed, he should be keeping the wound covered daily. He should also not be getting his feet wet until the wound is healed. Continue to elevate the feet to help with the swelling. I performed a full thickness debridement of the plantar wound of the left foot with a #15 blade; all non-viable tissue was excised, and the wound was debrided to a clean bleeding base. No abscess found. The patient tolerated the procedure well. The new wound measurements for the left foot were 0.5cm x 0.5cm in size. The area does not probe to bone, but I warned the patient that if it continues to deteriorate this could continue to the bone. Patient was instructed not to pick at the foot and only apply Bactroban to the wound with a dry dressing only. The patient is to change the bandage daily. Pt to call or go to ER if the foot becomes painful red, they see pus, or the wound worsens. Patient to follow up in 7-10 days 06/22/2024 Cellulitis of left foot (ICD-10 - L03.116) This is an outpatient visit for evaluation and management of a new problem, which required appropriate review of pertinent medical history, review of any previous imaging, review of all previous records, and examination and complex decision-making. Time was 30 minutes spent in review of all these facets including face to face discussion with the patient regarding my findings and in discussion of a current and future treatment plan. This patient has a left foot infection on examination today. I stressed the severity of the situation with the patient today. I reviewed the x-rays which do not reveal a Charcot flare up or osteomyelitis. He does have a significant soft tissue infection on examination today. I discussed with the patient that I will keep him on an oral antibiotic but if the foot does not look improved over the next 2 days, then he will need to go to the hospital for IV antibiotics. I also stressed if his fever and chills do not improve, he needs to go to the hospital for IV antibiotics. RX doxycycline 100mg PO BID x 5 days sent to the pharmacy. We discussed the importance of proper offloading for the wound to heal. He needs to be resting the left foot and keeping it elevated. I explained to the patient that until the left foot wound was healed, he should be keeping the wound covered daily. He should also not be getting his feet wet until the wound is healed. Continue to elevate the feet to help with the swelling. I performed a full thickness debridement of the plantar wound of the left foot with a #15 blade; all non-viable tissue was excised, and the wound was debrided to a clean bleeding base. The wound was probed, and a purulent fluid collection found, approximately 4cc was drained. The patient tolerated the procedure well. The new wound measurements for the left foot were 0.5cm x 0.3cm in size. The area does not probe to bone, but I warned the patient that if it continues to deteriorate this could continue to the bone. Wound culture taken. I may change the antibiotic based on the wound culture results. Patient was instructed not to pick at the foot and only apply Bactroban to the wound with a dry dressing only. The patient is to change the bandage daily. Pt to call or go to ER if the foot becomes painful red, they see pus, or the wound worsens. Patient to follow up in 1 week. 07/03/2024 Cellulitis of left foot (ICD-10 - L03.116) This is an outpatient visit for evaluation and management of a new problem, which required appropriate review of pertinent medical history, review of any previous imaging, review of all previous records, and examination and complex decision-making. Time was 30 minutes spent in review of all these facets including face to face discussion with the patient regarding my findings and in discussion of a current and future treatment plan. This patient has a left foot infection on examination today. I stressed the severity of the situation with the patient today. I reviewed the x-rays which do not reveal a Charcot flare up or osteomyelitis. He does have a significant soft tissue infection on examination today. I discussed with the patient that I will keep him on an oral antibiotic but if the foot does not look improved over the next 2 days, then he will need to go to the hospital for IV antibiotics. I also stressed if his fever and chills do not improve, he needs to go to the hospital for IV antibiotics. RX Augmentin 875mg PO BID x 21 days sent to the pharmacy. We discussed the importance of proper offloading for the wound to heal. He needs to be resting the left foot and keeping it elevated. I explained to the patient that until the left foot wound was healed, he should be keeping the wound covered daily. He should also not be getting his feet wet until the wound is healed. Continue to elevate the feet to help with the swelling. I performed a full thickness debridement of the plantar wound of the left foot with a #15 blade; all non-viable tissue was excised, and the wound was debrided to a clean bleeding base. The wound was probed, and a purulent fluid collection found, approximately 4cc was drained. The patient tolerated the procedure well. The new wound measurements for the left foot were 0.2cm x 0.2cm in size. The area does not probe to bone, but I warned the patient that if it continues to deteriorate this could continue to the bone. Wound culture taken. I may change the antibiotic based on the wound culture results. Patient was instructed not to pick at the foot and only apply Bactroban to the wound with a dry dressing only. The patient is to change the bandage daily. Pt to call or go to ER if the foot becomes painful red, they see pus, or the wound worsens. Patient to follow up in 2 weeks. 07/08/2024 Cellulitis of left foot (ICD-10 - L03.116) This is an outpatient visit for evaluation and management of a new problem, which required appropriate review of pertinent medical history, review of any previous imaging, review of all previous records, and examination and complex decision-making. Time was 30 minutes spent in review of all these facets including face to face discussion with the patient regarding my findings and in discussion of a current and future treatment plan. This patient has a left foot infection on examination today. I stressed the severity of the situation with the patient today. I discussed with the patient that I will keep him on an oral antibiotic but if the foot does not look improved over the next 2 days, then he will need to go to the hospital for IV antibiotics. RX Augmentin 875mg PO BID x 21 days sent to the pharmacy. We discussed he had a full thickness blood blister from activity to the toe. I stressed the importance of rest and bandaging the toe. We discussed the importance of proper offloading for the wound to heal. He needs to be resting the left foot and keeping it elevated. I explained to the patient that until the left foot wound was healed, he should be keeping the wound covered daily. He should also not be getting his feet wet until the wound is healed. Continue to elevate the feet to help with the swelling. I performed a full thickness debridement of the plantar wound of the left foot with a #15 blade; all non-viable tissue was excised, and the wound was debrided to a clean bleeding base. The patient tolerated the procedure well. The new wound measurements for the left foot were 0.1cm x 0.1cm in size. The area does not probe to bone, but I warned the patient that if it continues to deteriorate this could continue to the bone. I may change the antibiotic based on the wound culture results. Patient was instructed not to pick at the foot and only apply Bactroban to the wound with a dry dressing only. The patient is to change the bandage daily. Pt to call or go to ER if the foot becomes painful red, they see pus, or the wound worsens. Patient to follow up in 2 days. 07/08/2024 Blister of toe of left foot, initial encounter (ICD-10 - S90.425A) 07/10/2024 Cellulitis of left foot (ICD-10 - L03.116) This is an outpatient visit for evaluation and management of a new problem, which required appropriate review of pertinent medical history, review of any previous imaging, review of all previous records, and examination and complex decision-making. Time was 30 minutes spent in review of all these facets including face to face discussion with the patient regarding my findings and in discussion of a current and future treatment plan. This patient has an improving left foot infection on examination today. I stressed the severity of the situation with the patient today. I discussed with the patient that I will keep him on an oral antibiotic but if the foot gets worse, then he will need to go to the hospital for IV antibiotics. RX Augmentin 875mg PO BID x an additional 7 days sent to the pharmacy for the patient to continue until his next visit. We discussed he had a full thickness blood blister from activity to the toe which si now a healing wound. I stressed the importance of rest and bandaging the toe. We discussed the importance of proper offloading for the wound to heal. He needs to be resting the left foot and keeping it elevated. I explained to the patient that until the left foot wound was healed, he should be keeping the wound covered daily. He should also not be getting his feet wet until the wound is healed. Continue to elevate the feet to help with the swelling. The wound on the bottom of the foot is closed, the wound on the lateral side of the toe did not require a debridement today. Patient was instructed not to pick at the foot and only apply Bactroban to the wound with a dry dressing only. The patient is to change the bandage daily. Pt to call or go to ER if the foot becomes painful red, they see pus, or the wound worsens. Patient to follow up in 10 days. 07/20/2024 Idiopathic peripheral neuropathy (ICD-10 - G60.9) I [...] why the right foot pain has increased. 07/20/2024 Ulcer of left foot with fat layer exposed (ICD-10 - L97.522) This is an outpatient visit for evaluation and management of a new problem, which required appropriate review of pertinent medical history, review of any previous imaging, review of all previous records, and examination and complex decision-making. Time was 30 minutes spent in review of all these facets including face to face discussion with the patient regarding my findings and in discussion of a current and future treatment plan. This patient has an improving left foot infection on examination today. I stressed the severity of the situation with the patient today. I discussed with the patient that I will keep him on an oral antibiotic but if the foot gets worse, then he will need to go to the hospital for IV antibiotics. RX Augmentin 875mg PO BID x an additional 10 days sent to the pharmacy for the patient to continue until his next visit. We discussed he had a full thickness blood blister from activity to the toe which is now a healing wound. I stressed the importance of rest and bandaging the toe. We discussed the importance of proper offloading for the wound to heal. He needs to be resting the left foot and keeping it elevated. I explained to the patient that until the left foot wound was healed, he should be keeping the wound covered daily. He should also not be getting his feet wet until the wound is healed. Continue to elevate the feet to help with the swelling. The wound on the bottom of the foot is closed, the wound on the lateral side of the toe is 2.0 x 2.5cm. Patient was instructed not to pick at the foot and only apply Bactroban to the wound with a dry dressing only. The patient is to change the bandage daily. Pt to call or go to ER if the foot becomes painful red, they see pus, or the wound worsens. Patient to follow up in 10 days. 07/31/2024 Ulcer of left foot with fat layer exposed (ICD-10 - L97.522) This is an outpatient visit for evaluation and management of a new problem, which required appropriate review of pertinent medical history, review of any previous imaging, review of all previous records, and examination and complex decision-making. Time was 30 minutes spent in review of all these facets including face to face discussion with the patient regarding my findings and in discussion of a current and future treatment plan. This patient has an improving left foot infection on examination today. I stressed the severity of the situation with the patient today. I discussed with the patient that I will keep him on an oral antibiotic but if the foot gets worse, then he will need to go to the hospital for IV antibiotics. RX Augmentin 875mg PO BID x an additional 10 days sent to the pharmacy for the patient to continue until his next visit. We discussed he had a full thickness blood blister from activity to the toe which is now a healing wound. I stressed the importance of rest and bandaging the toe. We discussed the importance of proper offloading for the wound to heal. He needs to be resting the left foot and keeping it elevated. I explained to the patient that until the left foot wound was healed, he should be keeping the wound covered daily. He should also not be getting his feet wet until the wound is healed. Continue to elevate the feet to help with the swelling. The wound on the bottom of the foot is closed, the wound on the lateral side of the toe is 1.5 x 1.5cm. Patient was instructed not to pick at the foot and only apply Bactroban to the wound with a dry dressing only. The patient is to change the bandage daily. Pt to call or go to ER if the foot becomes painful red, they see pus, or the wound worsens. Patient to follow up in 10 days. 08/14/2024 Ulcer of left foot with fat layer exposed (ICD-10 - L97.522) This is an outpatient visit for evaluation and management of a new problem, which required appropriate review of pertinent medical history, review of any previous imaging, review of all previous records, and examination and complex decision-making. Time was 30 minutes spent in review of all these facets including face to face discussion with the patient regarding my findings and in discussion of a current and future treatment plan. This patient has an improving left foot infection on examination today. I stressed the severity of the situation with the patient today. I discussed with the patient that I will keep him on an oral antibiotic but if the foot gets worse, then he will need to go to the hospital for IV antibiotics. RX Augmentin 875mg PO BID x an additional 10 days sent to the pharmacy for the patient to continue until his next visit. We discussed he had a full thickness blood blister from activity to the toe which is now a healing wound. I stressed the importance of rest and bandaging the toe. We discussed the importance of proper offloading for the wound to heal. He needs to be resting the left foot and keeping it elevated. I explained to the patient that until the left foot wound was healed, he should be keeping the wound covered daily. He should also not be getting his feet wet until the wound is healed. Continue to elevate the feet to help with the swelling. The wound on the bottom of the foot is closed, the wound on the lateral side of the toe is 1.0 x 0.5cm. Patient was instructed not to pick at the foot and only apply Bactroban to the wound with a dry dressing only. The patient is to change the bandage daily. Pt to call or go to ER if the foot becomes painful red, they see pus, or the wound worsens. Patient to follow up in 10 days. 09/17/2024 Ulcer of left foot with fat layer exposed (ICD-10 - L97.522) 10/05/2024 Ulcer of left foot with fat layer exposed (ICD-10 - L97.522) 10/05/2024 Acute osteomyelitis of left foot (ICD-10 - M86.172) This is an outpatient visit for evaluation and management of an existing patient, which required appropriate review of pertinent medical history, review of any previous imaging, review of all previous records, and examination and complex decision-making. Time was 30 minutes spent in review of all these facets including face to face discussion with the patient regarding my findings and in discussion of a current and future treatment plan. I reviewed all requested records from the patient's hospital stay at [facility]. He is currently receiving 6 weeks of IV Daptomycin through a PICC line following probable osteomyelitis seen on MRI and an elevated ESR/CRP. We discussed the MRI findings of osteomyelitis of the remaining proximal phalanx and possible osteomyelitis of the sesamoids and distal 1st metatarsal. We discussed infection of the extensor tendon of the left 1st ray. I reviewed options of treatment for this patient. We discussed that an x-ray would not show findings right away but could show changed 3 weeks out from the infection. We discussed that he has been dealing with an open left foot wound for 4 months. He almost had complete closure of the wound before this most recent infection which resulted in the hospital admission. We discussed resection of the remaining proximal phalanx of the left hallux with debridement of the distal 1st metatarsal head and possible excision of the sesamoids. I reviewed the biomechanical changes that could occur with this type of surgery. 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 We discussed the recovery from this type of procedure. I would like to wound to be smaller before proceeding with this surgery. We tentatively scheduled this surgery to be done under local anesthesia on . I will contact Dr. Richardson to discuss my plan for surgery [phone]. We discussed this may change the plan for the antibiotics. He is in agreement with this plan. The patient is also in need of a new walking boot. We will contact his insurance to see if this would be covered. He is in agreement with this plan. He will continue the IV Daptomycin per ID and continue with the [facility] nursing at home until the scheduled surgery. The patient is in agreement with this plan. Patient was instructed not to pick at the foot and only apply a dry sterile dressing to the left foot. The bandage was reapplied in the office today. The patient is to change the bandage daily. Pt to call or go to ER if the foot becomes painful red, they see pus, or the wound worsens. Patient to follow up in 2 weeks. 08/28/2024 Ulcer of left foot with fat layer exposed (ICD-10 - L97.522) This patient has an improving left foot ulcer on examination today. I stressed the severity of the situation with the patient today. He completed the course of antibiotics. We discussed he had a full thickness blood blister from activity to the toe which is now a healing wound. I stressed the importance of rest and bandaging the toe. We discussed the importance of proper offloading for the wound to heal. He needs to be resting the left foot and keeping it elevated. I explained to the patient that until the left foot wound was healed, he should be keeping the wound covered daily. He should also not be getting his feet wet until the wound is healed. Continue to elevate the feet to help with the swelling. The wound on the bottom of the foot is closed, the wound on the lateral side of the toe is 0.3cm x 0.4cm. Patient was instructed not to pick at the foot and only apply Bactroban to the wound with a dry dressing only. The patient is to change the bandage daily. Pt to call or go to ER if the foot becomes painful red, they see pus, or the wound worsens. Patient to follow up in 2 weeks. 08/28/2024 Idiopathic peripheral neuropathy (ICD-10 - G60.9) I [...] why the right foot pain has increased. 10/05/2024 Left foot infection (ICD-10 - L08.9) 08/14/2024 Idiopathic peripheral neuropathy (ICD-10 - G60.9) I [...] why the right foot pain has increased. 07/10/2024 Ulcer of left foot with fat layer exposed (ICD-10 - L97.522) 07/20/2024 Charcot's arthropathy (ICD-10 - M14.60) We discussed [...] set of x-rays at his next visit. 07/31/2024 Idiopathic peripheral neuropathy (ICD-10 - G60.9) I [...] why the right foot pain has increased. 07/08/2024 Ulcer of left foot with fat layer exposed (ICD-10 - L97.522) 07/03/2024 Ulcer of left foot with fat layer exposed (ICD-10 - L97.522) 06/22/2024 Ulcer of left foot with fat layer exposed (ICD-10 - L97.522) 06/10/2024 Ulcer of left foot with fat layer exposed (ICD-10 - L97.522) 04/06/2024 Idiopathic peripheral neuropathy (ICD-10 - G60.9) I [...] why the right foot pain has increased. 01/01/2024 Charcot's arthropathy (ICD-10 - M14.60) We discussed [...] set of x-rays at his next visit. 01/01/2024 Gait instability (ICD-10 - R26.81) We discussed his muscle strength remains unchanged, but he does have increased symptoms of neuropathy on examination today. Depending on the neurologist opinion, he may need AFOs to help with stability, at this time the patient would like to wait. 04/06/2024 Charcot's arthropathy (ICD-10 - M14.60) We discussed [...] set of x-rays at his next visit. 06/22/2024 Idiopathic peripheral neuropathy (ICD-10 - G60.9) I [...] why the right foot pain has increased. 06/10/2024 Idiopathic peripheral neuropathy (ICD-10 - G60.9) I [...] why the right foot pain has increased. 07/03/2024 Idiopathic peripheral neuropathy (ICD-10 - G60.9) I [...] why the right foot pain has increased. 07/08/2024 Idiopathic peripheral neuropathy (ICD-10 - G60.9) I [...] why the right foot pain has increased. 07/10/2024 Idiopathic peripheral neuropathy (ICD-10 - G60.9) I [...] why the right foot pain has increased. 07/31/2024 Charcot's arthropathy (ICD-10 - M14.60) We discussed [...] set of x-rays at his next visit. 06/03/2024 Idiopathic peripheral neuropathy (ICD-10 - G60.9) I [...] why the right foot pain has increased. 08/14/2024 Charcot's arthropathy (ICD-10 - M14.60) We discussed [...] set of x-rays at his next visit. 08/28/2024 Charcot's arthropathy (ICD-10 - M14.60) We discussed [...] set of x-rays at his next visit. 07/10/2024 Charcot's arthropathy (ICD-10 - M14.60) We discussed [...] set of x-rays at his next visit. 07/08/2024 Charcot's arthropathy (ICD-10 - M14.60) We discussed [...] set of x-rays at his next visit. 07/03/2024 Charcot's arthropathy (ICD-10 - M14.60) We discussed [...] set of x-rays at his next visit. 06/22/2024 Charcot's arthropathy (ICD-10 - M14.60) We discussed [...] set of x-rays at his next visit. 06/03/2024 Charcot's arthropathy (ICD-10 - M14.60) We discussed [...] set of x-rays at his next visit. 06/10/2024 Charcot's arthropathy (ICD-10 - M14.60) We discussed [...] set of x-rays at his next visit. 04/06/2024 Gait instability (ICD-10 - R26.81) We discussed his muscle strength remains unchanged, but he does have increased symptoms of neuropathy on examination today. Depending on the neurologist opinion, he may need AFOs to help with stability, at this time the patient would like to wait. 01/01/2024 Hammer toe of left foot (ICD-10 - M20.42) We discussed he has hammer toes on both feet. We discussed this causes rubbing in his [...] to proceed with surgery at this time. 04/06/2024 Hammer toe of left foot (ICD-10 - M20.42) We discussed he has hammer toes on both feet. We discussed this causes rubbing in his [...] to proceed with surgery at this time. 01/01/2024 Onychodystrophy (ICD-10 - L60.3) I reviewed nail avulsions with the patient and also phenol/surgical matrixectomies. The patient is not having pain currently and did not want to have the procedure done today. I briefly reviewed the post-procedure course if he did choose to have the procedure done. Patient to return when ready for the procedure. We discussed a total nail avulsion of the right hallux with phenol matrixectomy. 07/20/2024 Other Plan Of Treatment Pending Test Test Name Order Date X ray : Foot, left 3v 04/07/2020 X ray : Foot, left 3v 03/17/2021 X ray : Foot, left 3v 12/18/2021 X ray : Foot, left 3v 03/20/2022 X ray : Foot, left 3v 09/20/2022 X ray : Foot, left 3v 12/27/2022 X ray : Foot, left 3v 03/29/2023 X ray : Foot, left 3v 01/01/2024 X ray : Foot, left 3v 06/03/2024 X ray : Foot, right 3v 01/01/2024 X ray : Foot, right 3v 03/29/2023 X ray : Foot, right 3v 12/27/2022 X ray : Foot, right 3v 09/20/2022 X ray : Foot, right 3v 03/20/2022 X ray : Foot, right 3v 12/18/2021 X ray : Foot, right 3v 10/03/2020 X ray : Foot, right 3v 10/24/2020 X ray : Foot, right 3v 11/21/2020 X ray : Foot, right 3v 03/17/2021 Next Appt Details Provider Name:BEVERLY JONES MOELLER, 10/21/2024 10:45:00 AM, [address], [address], Insurance Providers Payer Name Payer Address Payer Phone Subscriber Number Group Number Insured Name Patient Relationship to Insured Coverage Start Date Coverage End Date [facility] [id number] [facility] [id number] [place] [address] [phone] [id number] Narinder Macias Self - patient is the insured Medical (General) History Medical History History ICD Code varicose veins with edema hypertriglyceridemia obesity GERD idiopathic peripheral neuropathy charcot arthritis sleep apnea eczema + COVID not COVID vaccinated Surgical History Surgery Date(Month/Year) partial amputation of the left hallux colonoscopy kidney stone surgery 10/2023 Hospitalization History Reason Date(Month/Year) left foot cellulitis with osteomyelitis and abscess 09/19/2024 kidney stone surgery 10/2023 infection left foot partial amputation of the left hallux
--- OUTSIDE RECORDS SUMMARY | 2024-10-13 14:20 | XMS_ITS ---
Author Organization [facility] Address [address] [place] [address] Care Team Providers Care Director Of Broadcast Name Role Phone Jennifer Walter Primary Care Provider ZARA Rios Unavailable [phone] Allergies Allergen (clinical drug ingredient) Drug/Non Drug Allergy documented on EMR Reaction Allergy Type Onset Date Status sulfamethoxazole / trimethoprim Bactrim Unknown Drug Allergy Active REASON FOR VISIT 2wk Medications Medication SIG (Take, Route, Frequency, Duration) Notes Start Date End Date Status Losartan Potassium-HCTZ 100-12.5 MG 1 tablet Orally Once a day Not-Taking Fish Oil 1000 MG 1 capsule Orally Onc e a day Active Heparin Sodium (Porcine) 10 units Active DAPTOmycin 350 MG as directed Intravenous 700MG Active Lipitor 20 MG 1 tablet Orally Once a day Not-Taking levoFLOXacin 500 MG 1 tablet Orally twic e daily for 10 day(s) 04/01/2023 Not-Taking Doxycycline Monohydrate 100 MG 1 capsule Orally twice daily for 5 days Not-Taking Multivitamin - 1 tablet Orally Once a day Active Amoxicillin-Pot Clavulanate 875-125 MG 1 tablet Orally every 12 hrs for 14 days Not-Taking Vitamin D3 Active Vitamin C 1000 MG 1 tablet Orally Once a day Active Garlic 1000 MG as directed Orally Active Zinc 50 MG 1 tablet Orally Once a day Active Problems Problem Type SNOMED Code ICD Code Onset Dates Problem Status W/U Status Risk Notes Problem [id number] Acute osteomyelitis of left foot (M86.172) Active confirmed Vital Signs Weight 234.8 lbs 10/05/2024 Height 5ft 11in in 10/05/2024 BMI 32.74 kg/m2 10/05/2024 Heart Rate 64 /min 10/05/2024 Temperature 97.2 degrees Fahrenheit 10/05/19 25 Respiratory Rate 16 /min 10/05/2024 Encounters Encounter Location Date Provider Diagnosis [facility] [address] [place] [address] 10/05/2024 ZARA STAPLETON Acute osteomyelitis of left foot M86.172 ; Ulcer of left foot with fat layer exposed L97.522 and Left foot infection L08.9 Assessments Encounter Date Diagnosis (ICD Code) Assessment Notes Treatment Notes Treatment Clinical Notes Section Notes 10/05/2024 Acute osteomyelitis of left foot (ICD-10 [...] records from the patient's hospital stay at [facility]. He is currently receiving 6 weeks of [...] with this type of surgery. We discussed nursing home a filler of the left big toe may be needed in his shoes. We discussed the recovery from this type of procedure. I would like to wound to be smaller before proceeding with this surgery. We tentatively scheduled this surgery to be done under local anesthesia on . I will contact Dr. Richardson to discuss my plan for surgery [phone]. We discussed this may change the plan [...] Patient to follow up in 2 weeks. 10/05/2024 Ulcer of left foot with fat layer exposed (ICD-10 - L97.522) 10/05/2024 Left foot infection (ICD-10 - L08.9) Plan Of Treatment Treatment Notes Assessment Notes Acute osteomyelitis of left foot This is an outpatient visit for evaluation [...] records from the patient's hospital stay at [facility]. He is currently receiving 6 weeks of [...] with this type of surgery. We discussed nursing home a filler of the left big toe may be needed in his shoes. We discussed the recovery from this type of procedure. I would like to wound to be smaller before proceeding with this surgery. We tentatively scheduled this surgery to be done under local anesthesia on . I will contact Dr. Richardson to discuss my plan for surgery [phone]. We discussed this may change the plan [...] Patient to follow up in 2 weeks. Next Appt Details Follow Up: 2 Weeks, Reason: Provider Name:ZARA STAPLETON, 10/21/2024 10:45:00 AM, [address], [address], Progress Notes * Narinder THOMPSONDOB: 0 (64 yo M)Acc No.[id number]:10/05/2024 Progress Note Patient:?Narinder THOMPSON Provider:?Zara Stapleton DPM :1960???Age:64 Y???Sex:Male Cristian e:10/05/2024 Address:[address] [place] [address] [id number] Pcp:Jennifer Walter Subjective: * Chief Complaints: * ???2wk * HPI: ???Constitutional:? This 64 y/o male returns to my office as a hospital follow up. He was hospitalized 09/18 for a left foot infection. He had been taking the Augmentin without improvement of the left foot. He states the foot was improved and then all of a sudden became red swollen, and infected again. He was placed on IV antibiotics. X-rays were taken of the left foot which were unremarkable. He had an MRI done in the hospital which showed a probable bone infection. He was discharged home with VNA services and a PICC line on daptomycin. He is following with Dr. Richardson with infectious disease. He has been wearing an old walking boot that he found at home. He states the size of the wound is smaller since he has been on the IV antibiotics. He also states the swelling has improved. He states there were multiple small wounds that had opened, but now it is the one on the side of the toe. He denies any n/f/v/c/sob. He has no other foot complaints this visit. * ROS:?GENERAL: Pt denies nausea, fever, vomiting, chills, or shortness of breath. Pt in NAD. ALLERGY: patient denies any new allergy CARDIOLOGY: pt denies chest pain, palpitations LUNGS: pt denies shortness of breath ABDOMEN: patient denies any bloating, abdominal pain, or swelling MUSCULOSKELETAL: See HPI, patient had a slip and fall in the bathroom is now having back pain. SKIN: see HPI, otherwise no lesions, rash or itching NEURO: No persistent headache PSYCH: patient denies any current anxiety or depression The remainder of the review of systems is noncontributory. * Medical History:? * Surgical History:?partial am putation of the left hallux colonoscopy kidney stone surgery 10/2023 * Hospitalization/Major Diagno stic Procedure:?partial amputation of the left hallux infection left foot kidney stone surgery 10/2023left foot cellulitis with osteomyelitis and abscess 09/19/2024 * Family History:? No positive family history reported. * Social History:?Tobacco: never smoker Alcohol: no. * Medications:?TakingHeparin S odium (Porcine) , Notes to Pharmacist: 10 unitsDAPTOmycin 350 MG Solution Reconstituted as directed Intravenous , Notes to Pharmacist: 700MGFish Oil 1000 MG Capsule 1 capsule Orally Once a day Garlic 1000 MG Capsule as directed Orally Zinc 50 MG Tablet 1 tablet Orally Once a day Vitamin C 1000 MG Tablet 1 tablet Orally Once a day Vitamin D3 Multivitamin - Tablet 1 tablet Orally Once a day Taking Heparin Sodium (Porcine) , Notes to Pharmacist: 10 unitsTaking DAPTOmycin 350 MG Solution Reconstituted as directed Intravenous , Notes to Pharmacist: 700MGTaking Fish Oil 1000 MG Capsule 1 capsule Orally Once a day Taking Garlic 1000 MG Capsule as directed Orally Taking Zinc 50 MG Tablet 1 tablet Orally Once a day Taking Vitamin C 1000 MG Tablet 1 tablet Orally Once a day Taking Vitamin D3 Taking Multivitamin - Tablet 1 tablet Orally Once a day Not-TakingLosartan Potassium- HCTZ 100-12.5 MG Tablet 1 tablet Orally Once a day Amoxicillin-Pot Clavulanate 875- 125 MG Tablet 1 tablet Orally every 12 hrs Doxycycline Monohydrate 100 MG Capsule 1 capsule Orally twice daily levoFLOXacin 500 MG Tablet 1 tablet Orally twice daily Lipitor 20 MG Tablet 1 tablet Orally Once a day Medication List reviewed and reconciled with the patientNot-Taking Losartan Potassium-HCTZ 100-12.5 MG Tablet 1 tablet Orally Once a day Not-Taking Amoxicillin-Pot Clavulanate 875-125 MG Tablet 1 tablet Orally every 12 hrs Not-Taking Doxycycline Monohydrate 100 MG Capsule 1 capsule Orally twice daily Not-Taking levoFLOXacin 500 MG Tablet 1 tablet Orally twice daily Not-Taking Lipitor 20 MG Tablet 1 tablet Orally Once a day Medication List reviewed and reconciled with the patient * Allergies:?Bactrimno[Allergi es Verified] Objective: * Vitals:?Wt:234.8lbs, Ht: 5ft 11in, BMI:32.74Index, HR:64/min, Temp:97.2F, RR:16/min, Ht-cm: 180.34, Wt-k.5 kg. * Examination: ???General Examination: ???VASCULAR: Dorsalis pedis pulses are 2/4 bilaterally and Posterior tibial pulses are 2/4 bilaterally. Capillary filling time within normal limits the digits. No pallor on elevation or rubor on dependency. No hair growth.Varicosities of the legs. Denies rest pain or claudication pain. NEUROLOGICAL: Protective sensation absent with a [place] 5.07 monofilament wire 0/10 bilaterally. Vibratory sensation with tuning fork absent bilaterally to the midfoot. Position sense diminished bilaterally to the midfoot. Patient is unable to stand unassisted from a crouch position. Patient is unable to stand unassisted from a kneeling position. DERMATOLOGICAL: LEFT FOOT: moderate edema, erythema, and mild warmth distally from the left hallux to the midfoot. Healed ulceration submetatarsal 1 left foot. Full thickness ulceration lateral aspect of the left hallux, red beefy granular base, size 1.0cm x 1.1 cm, does not probe, no fluctuance, + scant serosanguineous drainage. ORTHOPEDIC: No atrophy noted. Good muscle strength in dorsiflexors and plantarflexor against resistance in lower extremities. No pain on inversion or eversion or ROM of ankle joint, STJ and MTJ. S/p partial amputation of distal left hallux. Semi- rigid hammer toes of the 2nd toe bilaterally. Diffuse swelling of the forefoot of the right foot, no pain on palpation or ROM. s/p partial amputation left hallux. SHOES: walking boot left foot, left foot bandage clean, dry, intact with serosanguineous drainage size of a dime. Assessment: * Assessment: 1.?Acute osteomyelitis of le ft foot - M86.172 (Primary)???2.?Ulcer of left foot with fat layer exposed - L97.522???3.?Left foot infection - L08.9??? Plan: * Treatment: * Procedure Codes:? * Follow Up:?2 Weeks * Billing Information: * Visit Code:? 51986 Office Visit, Est Pt., Level 4. * Procedure Codes:? * Sign off status: Completed true * Provider:?Zara Stapleton DPM Date:? 10/05/2024 Generated for Dawit wheeler/Raymond/Franklinitting on:?10/13/2024 02:19 PM EST History and Physical Notes * HPI (History of Present Illness) Category Sub-Category Detail Notes Category Not es Constitutional This 64 y/o m bill returns to my office as a hospital follow up. He was hospitalized 09/18 for a left foot infection. He had been taking the Augmentin without improvement of the left foot. He states the foot was improved and then all of a sudden became red swollen, and infected again. He was placed on IV antibiotics. X-rays were taken of the left foot which were unremarkable. He had an MRI done in the hospital which showed a probable bone infection. He was discharged home with VNA services and a PICC line on daptomycin. He is following with Dr. Richardson with infectious disease. He has been wearing an old walking boot that he found at home. He states the size of the wound is smaller since he has been on the IV antibiotics. He also states the swelling has improved. He states there were multiple small wounds that had opened, but now it is the one on the side of the toe. He denies any n/f/v/c/sob. He has no other foot complaints this visit. Examination Category Sub-Category Detail Notes Category Not es General Examination VASCULAR: Dorsalis pedis pulses are 2/4 bilaterally and Posterior tibial pulses are 2/4 bilaterally. Capillary filling time within normal limits the digits. No pallor on elevation or rubor on dependency. No hair growth.Varicosities of the legs. Denies rest pain or claudication pain. NEUROLOGICAL: Protective sensation absent with a [place]uja 5.07 monofilament wire 0/10 bilaterally. Vibratory sensation with tuning fork absent bilaterally to the midfoot. Position sense diminished bilaterally to the midfoot. Patient is unable to stand unassisted from a crouch position. Patient is unable to stand unassisted from a kneeling position. DERMATOLOGICAL: LEFT FOOT: moderate edema, erythema, and mild warmth distally from the left hallux to the midfoot. Healed ulceration submetatarsal 1 left foot. Full thickness ulceration lateral aspect of the left hallux, red beefy granular base, size 1.0cm x 1.1 cm, does not probe, no fluctuance, + scant serosanguineous drainage. ORTHOPEDIC: No atrophy noted. Good muscle strength in dorsiflexors and plantarflexor against resistance in lower extremities. No pain on inversion or eversion or ROM of ankle joint, STJ and MTJ. S/p partial amputation of distal left hallux. Semi-rigid hammer toes of the 2nd toe bilaterally. Diffuse swelling of the forefoot of the right foot, no pain on palpation or ROM. s/p partial amputation left hallux. SHOES: walking boot left foot, left foot bandage clean, dry, intact with serosanguineous drainage size of a dime.
[2024-10-13 16:08] LABS: MANUAL DIFF FLAG NO
[2024-10-13 16:35] LABS: Basophils Percent Auto 0.4 % (0-2); Eosinophils Percent Auto 11.6 % (0-4); Hematocrit 39.9 % (42.0-52.0); Imm Gran Abs Auto 0.03 X10*3/uL (0.00-0.03); Imm Gran Pct Auto 0.4 % (0.0-0.4); Lymphocytes Absolute Auto 1.3 X10*3/uL (1.2-4.9); Mean Corpuscular HGB Conc 32.6 g/dl (31.0-36.0); Mean Corpuscular Hemoglobin 29.7 pg (27.0-33.0); Mean Corpuscular Volume 91.3 fL (80.0-98.0); Mean Platelet Volume 9.2 fL (9.4-12.4); Monocytes Absolute Auto 0.8 X10*3/uL (0.1-1.2); Monocytes Percent Auto 9.8 % (2-11); Neutrophils Absolute Auto 5.1 x10*3/uL (2.0-8.3); Neutrophils Percent Auto 61.8 % (45-73); Platelet Count 231 X10*3/uL (160-400); Red Blood Count 4.37 X10*6/uL (4.60-5.80); Red Cell Distribution Width 14.3 % (11.0-16.0); White Blood Count 8.3 X10*3/uL (4.8-10.8)
[2024-10-13 17:00] LABS: Alanine Aminotransferase 15 U/L (0-40); Albumin Level 3.7 g/dL (3.5-5.0); Alkaline Phosphatase 93 U/L (39-117); Anion Gap 13 (12-20); Aspartate Amino Transferase 23 U/L (5-37); Bilirubin Total 0.9 mg/dL (0.0-1.0); Blood Urea Nitrogen 13 mg/dL (9-16); Calcium 9.2 mg/dL (8.4-10.2); Carbon Dioxide 24 mmol/L (22-29); Chloride 104 mmol/L (96-108); Estimated Glomerular Filt Rate > 60; Glucose Random 85 mg/dL (60-115); Potassium 4.3 mmol/L (3.3-5.1); Sodium 137 mmol/L (135-145); Total Protein 7.8 g/dL (6.5-8.0)
== END 2024-10-13 11:36 | disposition home or self-care (01) ==
LOC: HO.HMGCLNP 11:35
PROVIDERS: Visit Provider Internal Medicine
DX: M86.172 Other acute osteomyelitis, left ankle and foot (principal)
CPT/HCPCS: 80053; 82550; 85025

== ENCOUNTER 2024-10-14 14:11 | Outpatient (AMB) | payer MEDICARE, SELFPAY ==
--- NOTE | 2024-10-14 14:12 | A.OFFVIS_ITS ---
Vital Signs 10/14/24 14:20 Height 5 ft 11 in Weight 237 lb BMI 33.1 Pulse 85 Pulse Source Pulse Oximeter Temp 99.0 F Temp Source Oral Pulse Oximetry (%) 97 Oxygen Delivery Method Room Air Intake Visit Reasons: [facility] reff cellulitis foot /dapto end 11/03 Allergies Sulfa (Sulfonamide Antibiotics) Allergy (Mild, Verified 10/14/24 14:23) Rash sulfamethoxazole [From BACTRIM] Allergy (Mild, Verified 10/14/24 14:23) Rash trimethoprim [From BACTRIM] Allergy (Mild, Verified 10/14/24 14:23) Rash HPI HPI [facility] reff cellulitis foot /dapto end 11/03: Details: He feels foot improved. He has no side effects from medication. [facility] Medical History SALVATORE (obstructive sleep apnea) Chronic cellulitis Amputation toe Neuropathy Charcot's joint of foot Hypertension Surgical History History of surgery on extremity H/O foot surgery Social History Household Members: Children Household Members Other:: 4 Housing: House Do you presently have visiting nurse or other home services: No Alcohol intake: former Patient Tobacco Use Status: Never used Tobacco service: No Review of Systems Const All systems reviewed & are unremarkable except as noted in HPI and below Physical Exam Vital Signs: Last Vital Signs Temp 99.0 F 10/14/24 14:20 Pulse 85 10/14/24 14:20 Pulse Ox 97 10/14/24 14:20 Oxygen Delivery Method Room Air 10/14/24 14:20 BMI result Body Mass Index 33.1 Const General: cooperative Orientation/consciousness: patient oriented x3 HEENT Head: Yes normal to inspection Mouth: Normal oral and palatal mucosa present Eyes General: appearance normal, both eyes and all related structures Pupils: Equal, round and reactive pupils present Resp Effort & Inspection: normal respiratory effort Cardio Rate: regular rate Rhythm: regular rhythm GI Palpation (GI): Soft to palpation and nontender General: Yes no CVA tenderness Back/Spine/Pelvis Back: no CVA tenderness Skin General skin exam: no rashes or lesions noted Neuro General: patient oriented x3 Cranial nerves: Yes CN's II-XII intact bilaterally and Yes Equal, round and reactive pupils present Extrem General: Yes normal to inspection Psych Appearance: grossly normal Assessment & Plan Assessment & Plan (1) Osteomyelitis: Comment: He has improvemnt Code(s): M86.9 - Osteomyelitis, unspecified Category: Medical Qualifiers: Osteomyelitis type: other acute Osteomyelitis location: foot Laterality: left Qualified Code(s): M86.172 - Other acute osteomyelitis, left ankle and foot Plan: Would continue Daptomycin Coding Level of Care Code Est Pt Level 3 (42118) Diagnoses Other acute osteomyelitis of left foot M86.172 Osteomyelitis type: other acute Osteomyelitis location: foot Laterality: left
[2024-10-14 14:20] VITALS: PULSE 85; TEMP 37.2; O2SAT 97; BMI 33.1
== END 2024-10-14 14:44 | disposition home or self-care (01) ==
PROVIDERS: PCP Internal Medicine; Visit Provider Internal Medicine
DX: M86.172 Other acute osteomyelitis, left ankle and foot (principal)
CPT/HCPCS: 99213

== ENCOUNTER → 2024-10-14 14:11 | Outpatient (BNVA) | payer MEDICARE, SELFPAY | PROVIDERS: PCP Internal Medicine; Visit Provider Internal Medicine | DX: M86.172 Other acute osteomyelitis, left ankle and foot (principal) | CPT/HCPCS: 99212 ==